=== PATIENT | male | born 1955 | race Caucasian/White ===

== ENCOUNTER 2021-03-02 17:11 | Emergency (ER) | payer MEDICARE, BC, SELFPAY ==
[2021-03-02 17:23] VITALS: BP 152/98; PULSE 68; RESP 20; TEMP 36.7; O2SAT 100
[2021-03-02] MEDS: PROPARACAINE 0.5% OPHTH SOL 1 DROPS EYE-LEFT (17:57)
[2021-03-02] MEDS: FLUORESCEIN 1 MG STRIP EYE-BOTH (17:59)
--- NOTE | 2021-03-02 18:12 | ED_ITS ---
HPI - General Adult General Chief complaint: Eye Problems Stated complaint: left eye possible FB Time Seen by Provider: 03/02/21 17:54 Source: patient Mode of arrival: Ambulatory History of Present Illness HPI narrative: Patient is a 65-year-old male here for evaluation of what he thinks is a potential foreign body in his left eye. He states he was mowing his lawn approximately 2 hours ago when he felt like a piece of grass came up around the safety goggles that he was wearing and irritated his left eye. He does not wear contact lenses. Many years ago he had surgery on the muscles of his eyes otherwise no other ocular procedures. Has irritation to his left eye. No drainage. Related Data Previous Rx's Medication Instructions Recorded PROMETHAZINE HCL/CODEINE 5 ml PO Q6HP PRN #60 ml 01/21/17 erythromycin 5 mg/gram (0.5 %) eye 0.5 inch EYE-LEFT TID #3.5 g 03/02/21 ointment Allergies Allergy/AdvReac Type Severity Reaction Status Date / Time No Known Drug Allergies Allergy Verified 03/02/21 17:59 Review of Systems Constitutional Constitutional: Reports system reviewed and no additional complaints, except as documented Eyes Eyes: Reports as per HPI ENT Ears, Nose, Mouth, and Throat: Reports system reviewed and no additional complaints, except as documented Respiratory Respiratory: Reports system reviewed and no additional complaints, except as documented Integumentary/Breasts Skin/Breast: Reports system reviewed and no additional complaints, except as documented Hematologic/Lymphatic On Anticoagulants: No Allergic/Immunologic Allergic/Immunologic: Reports system reviewed and no additional complaints, except as documented Patient History Medical History Viral URI Social History lives independently: Yes Exam Initial Vital Signs Initial Vital Signs: Vital Signs Temperature 98.0 F 03/02/21 17:23 Pulse Rate 68 03/02/21 17:23 Respiratory Rate 20 03/02/21 17:23 Blood Pressure 152/98 H 03/02/21 17:23 Pulse Oximetry 100 03/02/21 17:23 Const General: cooperative, healthy appearing and comfortable [facility] Head: normal to inspection and normocephalic Ears: hearing grossly normal bilaterally Nose: external nose normal Face and sinus: normal facial exam Mouth: oral mucosae normal Eyes Periorbital: periorbital findings normal Eyelids: eyelids normal Conjunctivae: conjunctival abnormality left conjunctival chemosis Sclera: sclerae normal Cornea: corneas normal and fluorescein used Pupils: PERRL EOM: EOM intact bilaterally Other: Right eye unremarkable. No foreign body noted in the left eye with eversion of the upper and lower eyelids. Resp Effort & Inspection: normal respiratory effort Skin General: no rashes or lesions noted Neuro General: patient alert, patient awake and patient oriented x3 Extrem General: normal to inspection and capillary refill normal Psych Appearance: grossly normal and well kempt Course Orders Ordered: Discontinued Medications Erythromycin (Erythromycin Ophth 1 Gm Oint) 1 applic EYE-LEFT NOW ONE Stop: 03/02/21 18:14 Last Admin: 03/02/21 18:27 Dose: 1 applic Documented by: GAIL Fluorescein Sodium (Fluorescein 1 Mg Strip) 1 mg EYE-BOTH NOW ONE Stop: 03/02/21 17:57 Last Admin: 03/02/21 17:59 Dose: 1 mg Documented by: GAIL Proparacaine HCl (Proparacaine 0.5% Ophth Kimberlee) 1 drops EYE-LEFT NOW ONE Stop: 03/02/21 17:26 Last Admin: 03/02/21 17:57 Dose: 1 drop Documented by: GAIL Vital Signs Vital signs: Vital Signs - 8 hr 03/02/21 17:23 Temperature 98.0 F Pulse Rate 68 Respiratory Rate 20 Blood Pressure 152/98 H Pulse Oximetry 100 Medical Decision Making MDM Narrative Medical decision making narrative: No foreign body noted in the left eye. Does have ecchymosis in his left eye. There was no uptake noted with floor seen. His eye exam is unremarkable. Plan will be is to place him on erythromycin ointment both the see the nature this and also to cover with antibiotics. We did discuss strict return precautions. He expressed understanding and agreement. Discharge Plan Departure Patient Disposition: Home Clinical Impression: Chemosis, Irritation of left eye Instructions: DI for Eye Pain Activity Restrictions/Additional Instructions: Recommend that he use the erythromycin ointment 3 times a day for at least the next 24 hours but you can continue using it in to your symptoms have resolved. Contact your primary provider for follow-up. Return to the emergency department for any new or worsening symptoms Prescriptions: New erythromycin 5 mg/gram (0.5 %) ointment 0.5 inch EYE-LEFT TID Qty: 3.5 RF: 0 No Action PROMETHAZINE HCL/CODEINE 5 ml PO Q6HP PRNQty: 60 RF: 0 Referrals: Jose Adams MD [Primary Care Provider] -
[2021-03-02] MEDS: ERYTHROMYCIN OPHTH 1 GM OINT 1 APPLIC EYE-LEFT (18:27)
[2021-03-02 18:31] VITALS: BP 148/87; PULSE 64; RESP 17; O2SAT 100
== END 2021-03-02 18:33 | disposition home or self-care (01) ==
PROVIDERS: Emergency Provider Emergency Medicine; Family Provider Family Medicine; PCP Family Medicine
DX: H11.422 Conjunctival edema, left eye (principal)
CPT/HCPCS: 99282

== ENCOUNTER 2021-08-10 16:20 | Emergency (ER) | payer MEDICARE, BC, SELFPAY ==
[2021-08-10] VITALS (8 sets, daily range): BP systolic 127–155; BP diastolic 77–99; PULSE 61–73; RESP 15–26; TEMP 36.4–36.8; O2SAT 95–98; BMI 32.5
--- NOTE | 2021-08-10 18:04 | DI.RAD.S_ITS ---
PROCEDURE: XR CHEST 1V INDICATIONS: chest pain TECHNIQUE: One view of the chest was acquired. COMPARISON: [facility], , CHEST 2 VIEW, 01/21/2017, 11:06. FINDINGS: Surgical changes and devices: None. Lungs and pleura: Lungs are clear. No pleural effusions or pneumothorax. Mediastinum: Mediastinal contours appear normal. Heart size is normal. Bones and chest wall: No suspicious bony lesions. Overlying soft tissues appear unremarkable. IMPRESSION: 1. No acute cardiopulmonary disease. Dictated by: Bijan Weber M.D. on 08/10/2021 at 20:13 Approved by: Bijan Weber M.D. on 08/10/2021 at 20:13
--- NOTE | 2021-08-10 18:23 | PC.NURSE ---
PT states dizziness resloved but feels a bit lightheaded. Neuro intact.
--- NOTE | 2021-08-10 18:24 | PC.NURSE ---
PIV x2 unsuccessful
--- NOTE | 2021-08-10 18:51 | DI.CT.S_ITS ---
PROCEDURE: CT HEAD/BRAIN WO CON INDICATIONS: dizzy TECHNIQUE: Noncontrast 4.5 mm thick angled axial sections acquired from the foramen magnum to the vertex, with coronal and sagittal reformats. For radiation dose reduction, the following was used: automated exposure control, adjustment of mA and/or kV according to patient size. COMPARISON: None. FINDINGS: Image quality: Excellent. CSF spaces: Basal cisterns are patent. No extra-axial fluid collections. The ventricles are symmetric in size and shape. There is mild cerebral volume loss, with resultant ventricular and sulcal prominence. Brain: No intracranial hemorrhage, mass, or mass effect. There are subcortical, periventricular and deep white matter hypodensities consistent with mild chronic small vessel ischemic changes. The delgado-white matter junction appears preserved. There is intracranial internal carotid artery atherosclerosis. There is a small oval filling defect within the confluence of sinuses posteriorly, measuring approximately 0.8 cm. Skull and face: Calvarium and visualized facial bones are intact, without suspicious lesions. Sinuses: Visualized sinuses demonstrate mild mucosal thickening within the ethmoid sinuses. The mastoid air cells are clear. IMPRESSION: 1. No acute intracranial hemorrhage or mass effect. 2. Small oval filling defect within the confluence of sinuses posteriorly. The findings likely represent an arachnoid granulation. A nonocclusive thrombus is less likely. Recommend correlation with clinical history. No occlusive thrombus visualized. Findings discussed with Dr. Burks on 08/10/2021 at 7:40 p.m.. Dictated by: Bijan Weber M.D. on 08/10/2021 at 19:28 Approved by: Bijan Weber M.D. on 08/10/2021 at 19:35
--- NOTE | 2021-08-10 18:52 | ED.DIZZY ---
HPI - Dizziness General Chief Complaint: Dizziness Stated Complaint: Dizzy/nausea today Time Seen by Provider: 08/10/21 18:06 Source: patient Mode of arrival: Ambulatory History of Present Illness HPI Narrative: Patient is a 66 year old male history of diabetes presenting today with sudden onset of dizziness. He states he was up on a ladder trimming trees which is a common thing for him he fortunately got down he felt very dizzy. So dizzy he had to sit down it lasted for about 10-30 minutes and has since completely resolved. He denies any numbness tingling or weakness. He had no chest pain or palpitations. No headache no nausea or vomiting. He is worried because he had a girlfriend few years ago who felt dizzy came to this hospital and then later of a cardiac arrest. He overall is feeling significantly better but was worried. He has not had any anticoagulation medication he had no trauma to his head. He has been symptom-free for number of hours now. Related Data Previous Rx's Medication Instructions Recorded PROMETHAZINE HCL/CODEINE 5 ml PO Q6HP PRN #60 ml 01/21/17 erythromycin 5 mg/gram (0.5 %) eye 0.5 inch EYE-LEFT TID #3.5 g 03/02/21 ointment Allergies Allergy/AdvReac Type Severity Reaction Status Date / Time No Known Drug Allergies Allergy Verified 03/02/21 17:59 Review of Systems Review of Systems Narrative: GENERAL: Denies chills, fatigue, malaise, fever, sweats, travel HEENT: Denies sinus pain, ear pain, sore throat, difficulty swallowing, neck pain RESPIRATORY: Denies dyspnea, cough, wheezing, hemoptysis, sputum. CARDIOVASCULAR: Denies chest pain, palpitations, orthopnea, edema GASTROINTESTINAL: Denies nausea, vomiting, abdominal pain, diarrhea, constipation, melena. : Denies dysuria, frequency, incontinence, hematuria, urinary retention, flank pain. MUSCULOSKELETAL: Denies weakness, joint pain, or bony pain SKIN: No rash, no erythema, no pruritus NEUROLOGIC: HPI PSYCHIATRIC: No concerning psychosocial issues. 12 point review of systems is negative except for those stated above and HPI Patient History Medical History Viral URI Social History lives independently: Yes Smoking Status: Never smoker Smoking Status: Never smoker Substance Use Type: does not use Exam Initial Vital Signs Initial Vital Signs: Vital Signs Temperature 97.6 F 08/10/21 16:31 Pulse Rate 63 08/10/21 16:31 Respiratory Rate 18 08/10/21 16:31 Blood Pressure 144/77 H 08/10/21 16:31 Pulse Oximetry 97 08/10/21 16:31 GENERAL: Well-appearing 66-year-old male HEENT: Head atraumatic,EOMI, pupils reactive, face symmetric, moist mucous membranes CARDIOVASCULAR: Regular rate and rhythm without murmurs, rubs or gallops. RESPIRATORY: Breath sounds equal bilaterally, no wheezes rales or rhonchi. ABDOMEN: Soft, nontender. Normoactive bowel sounds all 4 quadrants. No guarding or rebound. EXTREMITIES: Normal range of motion, no clubbing or edema. Neurovascularly intact NEUROLOGICAL: Alert and oriented x4.Normal gait and speech. Cranial nerves II through XII grossly intact. Good [id number], good [id number], strength equal bilaterally, no dysarthria or aphasia, sensation in tact to soft touch bilaterally, no visual changes, no facial droop SKIN: Warm, dry, no laceration, no petechiae, no rashes or lesions. Scores NIH Stroke Scale Level of Conciousness: Alert, keenly responsive Ask month/age: Answers both questions correctly. Open/close eyes, close hand: Performs both tasks correctly Best gaze horizontal: Normal Visual gooden: No visual loss Facial palsy: Normal symetrical movement Left arm drift: No drift for full 10 sec Right arm drift: No drift for full 10 sec Left leg drift: No drift for full 5 sec Right leg drift: No drift for full 5 sec Limb ataxia: Absent Sensory on face/arms/legs: Normal, no sensory loss Best language: No aphasia, normal Dysarthria: Normal Extinction or inattention: No abnormality Total NIH Stroke scale score: 0 Course Orders Ordered: ED Orders 08/10/21 18:04 XR chest 1V Stat 08/10/21 18:10 EKG-12 Lead Stat 08/10/21 18:40 Complete Blood Count AUTO DIFF Stat Comprehensive Metabolic Panel Stat Lipase Stat Magnesium Stat Troponin & CK Cardiac Panel Stat 08/10/21 18:51 CT head/brain wo con Stat 08/10/21 20:01 EKG-12 Lead Stat Vital Signs Vital signs: Vital Signs - 8 hr 08/10/21 18:55 08/10/21 18:59 08/10/21 19:00 Temperature Pulse Rate 63 61 Pulse Rate [Orthostatic Lying] 63 Pulse Rate [Orthostatic Standing] 73 Respiratory Rate 20 20 Blood Pressure 155/92 H Blood Pressure [Orthostatic Lying] 155/99 H Blood Pressure [Orthostatic Standing] 155/92 H Pulse Oximetry 97 97 08/10/21 19:14 08/10/21 19:30 08/10/21 20:00 Temperature 98.2 F Pulse Rate 62 62 61 Pulse Rate [Orthostatic Lying] Pulse Rate [Orthostatic Standing] Respiratory Rate 20 22 15 Blood Pressure 132/84 Blood Pressure [Orthostatic Lying] Blood Pressure [Orthostatic Standing] Pulse Oximetry 96 96 95 08/10/21 20:04 Temperature Pulse Rate 61 Pulse Rate [Orthostatic Lying] Pulse Rate [Orthostatic Standing] Respiratory Rate 26 H Blood Pressure 127/79 Blood Pressure [Orthostatic Lying] Blood Pressure [Orthostatic Standing] Pulse Oximetry 96 MDM - Dizziness Lab Data Result diagrams: 08/10/21 18:40 08/10/21 18:40 Labs: Lab Results 08/10/21 08/10/21 Range/Units 18:40 18:40 WBC 9.9 (4.5-11.0) X10^3/uL RBC 6.00 H (4.5-5.9) X10^6/uL Hgb 17.1 (13.5-17.5) g/dL Hct 49.7 (41-53) % MCV 82.8 (80-100) fL MCH 28.5 (26-34) PG MCHC 34.4 (30-36) % RDW 13.9 (11.6-14.8) % Plt Count 225 (150-400) X10^3/uL Neut % (Auto) 70.1 (50-75) % Lymph % (Auto) 21.2 L (25-40) % [place] % (Auto) 6.7 (3-14) % Eos % (Auto) 1.1 L (2-4) % Baso % (Auto) 0.9 (0-2) % Neut # (Auto) 6900 (2162-4830) /uL Lymph # (Auto) 2100 (9484-4146) /uL [place] # (Auto) 700 (0-900) /uL Eos # (Auto) 100 (0-450) /uL Baso # (Auto) 100 (0-100) /uL Sodium 138 (137-145) mmol/L Potassium 4.6 (3.4-5.1) mmol/L Chloride 102 (98-107) mmol/L Carbon Dioxide 27 (22-32) mmol/L BUN 21 H (9-20) mg/dL Creatinine 1.01 (0.66-1.25) mg/dL Estimated GFR > 60.0 (>60) mL/min BUN/Creatinine Ratio 20.8 (6-22) Glucose 203 H (80-110) mg/dL Calcium 9.8 (8.4-10.2) mg/dL Magnesium 2.2 (1.6-2.3) mg/dL Total Bilirubin 0.7 (0.2-1.3) mg/dL AST 29 (17-59) IU/L ALT 30 (<50) IU/L Alkaline Phosphatase 54 (38-126) U/L Total Creatine Kinase 76 (55-170) U/L CK-MB (CK-2) TNP CK-MB (CK-2) Rel Index TNP Troponin I < 0.012 (0.01-0.034) ng/mL Total Protein 7.7 (6.3-8.2) g/dL Albumin 4.8 (3.5-5.0) g/dL Globulin 2.9 (1.7-4.1) g/dL Albumin/Globulin Ratio 1.7 (1.0-2.8) Lipase 58 (23-300) U/L Imaging Data Chest x-ray: Radiologist's Impression: PROCEDURE:? XR CHEST 1V ? INDICATIONS:? chest pain ? TECHNIQUE:? One view of the chest was acquired.? ? COMPARISON:? [facility], , CHEST 2 VIEW, 01/21/2017, 11:06. ? FINDINGS:? ? Surgical changes and devices:? None.? ? Lungs and pleura:? Lungs are clear.? No pleural effusions or pneumothorax.? ? Mediastinum:? Mediastinal contours appear normal.? Heart size is normal.? ? Bones and chest wall:? No suspicious bony lesions.? Overlying soft tissues appear unremarkable.? ? IMPRESSION:? ? 1.? No acute cardiopulmonary disease. ? ? ? Dictated by: Bijan Weber M.D. on 08/10/2021 at 20:13 ? ? CT scan - head: Radiologist's Impression: PROCEDURE:? CT HEAD/BRAIN WO CON ? INDICATIONS:? dizzy ? TECHNIQUE:? Noncontrast 4.5 mm thick angled axial sections acquired from the foramen magnum to the vertex, with coronal and sagittal reformats.? For radiation dose reduction, the following was used:? automated exposure control, adjustment of mA and/or kV according to patient size.? ? COMPARISON:? None. ? FINDINGS:? Image quality:? Excellent.? ? CSF spaces:? Basal cisterns are patent.? No extra-axial fluid collections.? The ventricles are symmetric in size and shape.? There is mild cerebral volume loss, with resultant ventricular and sulcal prominence.? ? Brain:? No intracranial hemorrhage, mass, or mass effect.? There are subcortical, periventricular and deep white matter hypodensities consistent with mild chronic small vessel ischemic changes.? The delgado-white matter junction appears preserved.? There is intracranial internal carotid artery atherosclerosis.? There is a small oval filling defect within the confluence of sinuses posteriorly, measuring approximately 0.8 cm. ? Skull and face:? Calvarium and visualized facial bones are intact, without suspicious lesions.? ? Sinuses:? Visualized sinuses demonstrate mild mucosal thickening within the ethmoid sinuses.? The mastoid air cells are clear. ? IMPRESSION:? ? 1. No acute intracranial hemorrhage or mass effect. ? 2. Small oval filling defect within the confluence of sinuses posteriorly.? The findings likely represent an arachnoid granulation.? A nonocclusive thrombus is less likely.? Recommend correlation with clinical history.? No occlusive thrombus visualized.? ? Findings discussed with Dr. Burks on 08/10/2021 at 7:40 p.m..? ? Dictated by: Bijan Weber M.D. on 08/10/2021 at 19:28? ECG Data Interpretation: Sinus rhythm rate 61 SD interval 180 QRS 78 QTC 402 possible artifact noted in lead V2 with ST elevation no ST depression with a Q-wave noted in lead 3 only to previous EKG in 2009 EKG 2. Sinus rhythm rate [address] changes no ST depression no T-wave inversion overall appears to have no ischemic MDM Narrative Medical decision making narrative: Patient had a brief episode of severe dizziness which has completely resolved and been resolved for number of hours. Blood work is overall reassuring. Head CT noncontrast did show possible is sinus narrowing thought more to be granular tissue rather than thrombus it is not completely occlusive discussed this with radiologist. Patient's symptoms have completely resolved I did discuss the findings of his CT with him and recommended outpatient follow-up certainly if his symptoms continue or worsen he should return to the emergency department. MRI is currently unavailable and CT angio would not be the correct test. Patient's clinical exam is overall reassuring. I strongly recommend that he stay away from ladders as well. Discharge Plan Departure Patient Disposition: Home Clinical Impression: Benign paroxysmal positional vertigo Instructions: DI for Dizziness-Nonvertigo Activity Restrictions/Additional Instructions: *You have been diagnosed with vertigo *What to do: CT of your head does show possible narrowing and tissue in 1 of her vessels. However your symptoms resolved, but this may need an outpatient workup with an MRI venogram, please see your primary care provider about this. If your symptoms are worsening please return to emergency department immediately *Continue to take medications as directed *Follow up with your primary care provider in 2-3 days *Return to ER if you should have increasing dizziness, weakness, numbness, tingling, chest pain or palpitations or any new, worsening or concerning symptoms Prescriptions: No Action PROMETHAZINE HCL/CODEINE 5 ml PO Q6HP PRNQty: 60 0RF erythromycin 5 mg/gram (0.5 %) ointment 0.5 inch EYE-LEFT TID Qty: 3.5 0RF Referrals: Jose Adams MD [Primary Care Provider] -
[2021-08-10 19:01] LABS: Add Manual Diff / Slide Review NO; Basophils Absolute Auto 100 /uL (0-100); Basophils Percent Auto 0.9 % (0-2); Eosinophils Absolute Auto 100 /uL (0-450); Eosinophils Percent Auto 1.1 % (2-4); Hematocrit 49.7 % (41-53); Hemoglobin 17.1 g/dL (13.5-17.5); Lymphocytes Absolute Auto 2100 /uL (1100-4500); Lymphocytes Percent Auto 21.2 % (25-40); Mean Corpuscular HGB Conc 34.4 % (30-36); Mean Corpuscular Hemoglobin 28.5 PG (26-34); Mean Corpuscular Volume 82.8 fL (80-100); Monocytes Absolute Auto 700 /uL (0-900); Monocytes Percent Auto 6.7 % (3-14); Neutrophils Absolute Auto 6900 /uL (1500-7000); Neutrophils Percent Auto 70.1 % (50-75); Platelet Count 225 X10^3/uL (150-400); Red Cell Distribution Width 13.9 % (11.6-14.8); White Blood Cell Count 9.9 X10^3/uL (4.5-11.0)
[2021-08-10 19:03] LABS: Alanine Aminotransferase 30 IU/L (<50); Albumin 4.8 g/dL (3.5-5.0); Albumin Globulin Ratio 1.7 (1.0-2.8); Alkaline Phosphatase 54 U/L (38-126); Aspartate Aminotransferase 29 IU/L (17-59); BUN Creatinine Ratio 20.8 (6-22); Bilirubin Total 0.7 mg/dL (0.2-1.3); Blood Urea Nitrogen 21 mg/dL (9-20); Calcium 9.8 mg/dL (8.4-10.2); Carbon Dioxide 27 mmol/L (22-32); Chloride 102 mmol/L (98-107); Creatine Kinase 76 U/L (55-170); Estimated Glomerular Filt Rate > 60.0 mL/min (>60); Globulin 2.9 g/dL (1.7-4.1); Glucose 203 mg/dL (80-110); HEMOLYSIS 20 (0-50); Lipase 58 U/L (23-300); Magnesium 2.2 mg/dL (1.6-2.3); Potassium 4.6 mmol/L (3.4-5.1); Sodium 138 mmol/L (137-145); Total Protein 7.7 g/dL (6.3-8.2)
[2021-08-10 19:14] LABS: Troponin I < 0.012 ng/mL (0.01-0.034)
== END 2021-08-10 20:36 | disposition home or self-care (01) ==
PROVIDERS: Emergency Provider Emergency Medicine; Family Provider Family Medicine; PCP Family Medicine
DX: H81.10 Benign paroxysmal vertigo, unspecified ear (principal); R03.0 Elevated blood-pressure reading, without diagnosis of hypertension
CPT/HCPCS: 36415; 70450; 71045; 80053; 82550; 83690; 83735; 84484; 85025; 93005; 93010; 99284

== ENCOUNTER → 2021-11-28 09:00 | Outpatient (CLI) | payer MEDICARE, BC, SELFPAY ==
--- NOTE | 2021-11-28 09:04 | DI.US.S_ITS ---
PROCEDURE: US CAROTID DOPPLER BI INDICATIONS: Cervicalgia TECHNIQUE: Color and pulse Doppler interrogation was performed of both carotid systems, with image documentation and velocity measurements. COMPARISON: None. FINDINGS: Stenosis calculations are based on SRU (Society of Radiologists in Ultrasound) criteria. Right side: Brachial blood pressure: 136/82 mm Hg. Common carotid artery peak systolic velocity: 94 cm/sec. Internal carotid artery peak systolic velocity: 58 cm/sec. Internal carotid artery end diastolic velocity: 19 cm/sec. External carotid artery peak systolic velocity: 94 cm/sec. ICA/CCA peak systolic ratio: 0.6 . Sierra scale imaging description: Calcified plaque Percent internal carotid artery stenosis: Less than 50% . Vertebral artery: Flow direction is antegrade. Left side: Brachial blood pressure: 127/80 mm Hg. Common carotid artery peak systolic velocity: 54 cm/sec. Internal carotid artery peak systolic velocity: 61 cm/sec. Internal carotid artery end diastolic velocity: 26 cm/sec. External carotid artery peak systolic velocity: 86 cm/sec. ICA/CCA peak systolic ratio: 1.1 . Sierra scale imaging description: Calcified plaque Percent internal carotid artery stenosis: Less than 50% . Vertebral artery: Flow direction is antegrade. IMPRESSION: Less than 50% stenosis of the right and left internal carotid arteries. Dictated by: Yesy Moreno MD, PhD on 11/28/2021 at 10:26 Approved by: Yesy Moreno MD, PhD on 11/28/2021 at 10:27
== END ==
PROVIDERS: Family Provider Family Medicine; PCP Family Medicine; Referring Provider Family Medicine; Visit Provider Family Medicine
DX: M54.2 Cervicalgia (principal); I65.23 Occlusion and stenosis of bilateral carotid arteries
CPT/HCPCS: 93880

== ENCOUNTER → 2021-12-09 11:51 | Outpatient (CLI) | payer MEDICARE, BC, SELFPAY | PROVIDERS: Family Provider Family Medicine; PCP Family Medicine; Referring Provider Family Medicine; Visit Provider Family Medicine | DX: M54.2 Cervicalgia (principal); Z53.20 Procedure and treatment not carried out because of patient's decision for unspecified reasons ==

== ENCOUNTER → 2022-07-13 14:34 | Outpatient (CLI) | payer MEDICARE, BC, SELFPAY ==
[2022-07-13 15:29] LABS: Add Manual Diff / Slide Review NO; Basophils Absolute Auto 100 /uL (0-100); Basophils Percent Auto 0.9 % (0-2); Eosinophils Absolute Auto 200 /uL (0-450); Eosinophils Percent Auto 2.8 % (2-4); Hematocrit 45.2 % (41-53); Hemoglobin 15.3 g/dL (13.5-17.5); Lymphocytes Absolute Auto 1600 /uL (1100-4500); Lymphocytes Percent Auto 28.8 % (25-40); Mean Corpuscular HGB Conc 33.8 % (30-36); Mean Corpuscular Hemoglobin 28.5 PG (26-34); Mean Corpuscular Volume 84.2 fL (80-100); Monocytes Absolute Auto 400 /uL (0-900); Monocytes Percent Auto 6.7 % (3-14); Neutrophils Absolute Auto 3400 /uL (1500-7000); Neutrophils Percent Auto 60.8 % (50-75); Platelet Count 192 X10^3/uL (150-400); Red Blood Cell Count 5.36 X10^6/uL (4.5-5.9); Red Cell Distribution Width 13.7 % (11.6-14.8); White Blood Cell Count 5.6 X10^3/uL (4.5-11.0)
[2022-07-13 15:41] LABS: BUN Creatinine Ratio 25.7 (6-22); Blood Urea Nitrogen 19 mg/dL (9-20); Calcium 9.4 mg/dL (8.4-10.2); Carbon Dioxide 28 mmol/L (22-32); Chloride 97 mmol/L (98-107); Estimated Glomerular Filt Rate > 60 mL/min (>60); Glucose 386 mg/dL (80-110); HEMOLYSIS 16 (0-50); Potassium 4.3 mmol/L (3.4-5.1); Sodium 135 mmol/L (137-145)
[2022-07-14 06:59] LABS: Hemoglobin A1C% w Est Avg Glu 11.6 % (4.0-6.0)
== END ==
PROVIDERS: Family Provider Family Medicine; PCP Family Medicine; Referring Provider Orthopaedic Surgery; Visit Provider Orthopaedic Surgery
DX: Z01.818 Encounter for other preprocedural examination (principal); R73.9 Hyperglycemia, unspecified; Z01.812 Encounter for preprocedural laboratory examination; M25.562 Pain in left knee
CPT/HCPCS: 36415; 80048; 83036; 85025; 93005

== ENCOUNTER → 2022-07-24 12:05 | Outpatient (CLI) | payer MEDICARE, BC, SELFPAY ==
[2022-07-24 13:23] LABS: COVID19 -Nasal RAPID Negative (Negative)
== END ==
PROVIDERS: Family Provider Family Medicine; PCP Family Medicine; Referring Provider Orthopaedic Surgery; Visit Provider Orthopaedic Surgery
DX: Z20.822 Contact with and (suspected) exposure to COVID-19 (principal)
CPT/HCPCS: 87635; C9803

== ENCOUNTER 2022-07-26 10:01 | Inpatient (IN) | payer MEDICARE, BC, SELFPAY ==
[2022-07-13 10:59] VITALS: BMI 31.7
[2022-07-26] VITALS (13 sets, daily range): BP systolic 130–160; BP diastolic 51–98; PULSE 60–76; RESP 9–20; TEMP 36.1–36.8; O2SAT 92–100; BMI 31.0
--- NOTE | 2022-07-26 06:00 | DI.RAD.S_ITS ---
PROCEDURE: XR KNEE LT 1TO2V INDICATIONS: prosthesis placement TECHNIQUE: 2 view(s) of the knee acquired. COMPARISON: None. FINDINGS: Bones: Patient is status post knee joint arthroplasty. Hardware components are in expected positions. Visualized bony structures are intact. Soft tissues: Overlying postoperative changes are noted. IMPRESSION: Expected appearance post left knee arthroplasty. Dictated by: Katy Sandy M.D. on 07/26/2022 at 19:17 Approved by: Katy Sandy M.D. on 07/26/2022 at 19:17
[2022-07-26] MEDS: ACETAMINOPHEN 325 MG TABLET 975 MG PO (11:35)
[2022-07-26] MEDS: CELECOXIB 200 MG CAPSULE PO (11:36)
[2022-07-26] MEDS: PREGABALIN 75 MG CAPSULE PO (11:37)
[2022-07-26] MEDS: LACTATED RINGERS 1,000 ML 42 ML IV (11:38)
--- NOTE | 2022-07-26 12:59 | PM.PREOP ---
Pre-operative Note COVID-19 COVID-19 status: Negative Result date/Date tested (Pos, Neg/Pending): 07/24/22 Interval Note History & Physical reviewed/Exam performed by Physician: Yes Changes to H&P: No
[2022-07-26] MEDS: CEFAZOLIN 2 GM/100 ML PREMIX 100 ML IV ×2 (14:30→22:30)
[2022-07-26] MEDS: TRANEXAMIC ACID 1,000 MG VIAL 1000 MG INJ (14:40)
--- NOTE | 2022-07-26 14:49 | SUR.OPER ---
Supine on padded OR bed. Pillow under head, arms secured on padded armboards <90 degree abduction. Safety belt across torso. Non-operative leg secured with tape over blanket over lower leg. Operative leg secured in [employer] positioner. Foam padded brace at thigh of operative leg.
[2022-07-26] MEDS: BUPIVACAINE LIPOSOME 266 MG/20 ML VIAL INJ (15:00)
[2022-07-26] MEDS: BUPIVACAINE 0.5% (PF) VIAL 30 ML INJ (15:04)
[2022-07-26] MEDS: EPINEPHrine 1 MG/ML 0.15 MG INJ (15:09)
[2022-07-26] MEDS: MORPHINE 4 MG/ML INJ INJ (15:10)
--- NOTE | 2022-07-26 16:20 | PM.DS.1 ---
History of Present Illness History of Present Illness Date Patient Seen: 07/26/22 Time Patient Seen: 16:20 Chief complaint: L TKA Revision Narrative: Painful left knee unicompartmental arthroplasty Discharge Providers Provider Date of admission: 07/26/22 10:01 Primary care physician: Jose Adams MD Consults: 07/13/22 13:28 Consult to Pump Attendant Routine Comment: Lives alone, no plan for home assistance 07/26/22 06:00 Consult to Anesthesiology Routine Comment: Consulting Provider: Anesthesiologist Reason for consultation: Regional block for post operative pain control Discharge provider: Олег Chavez MD Exam Vital Signs (past 8 hours): - 07/26/22 11:01 Temperature 97.3 F L Pulse Rate 65 Respiratory Rate 16 Blood Pressure 160/98 H Pulse Oximetry 100 Oxygen Delivery Method Room Air Oxygen Delivery Method Room Air PFS Medical History Diabetes History of prosthetic unicompartmental arthroplasty of left knee (2018) HTN (hypertension) Hypothyroidism JONELLE (obstructive sleep apnea) Osteoarthritis Viral URI Surgical History H/O vasectomy Hx of arthroscopy of left knee Hx of arthroscopy of right knee Hx of colonoscopy with polypectomy Hx of hand surgery Hx of hernia repair Hx of tonsillectomy Social History household members: none lives independently: Yes Smoking Status: Former smoker alcohol intake: former Discharge Plan Discharge orders & Medications Prescriptions: No Action metformin 500 mg Tablet 2,000 mg PO QAM amlodipine 5 mg Tablet 5 mg PO DAILY oxycodone-acetaminophen 5-325 mg Tablet 1 tab PO Q4-6H PRN (Reason: Pain) levothyroxine 200 mcg Tablet 200 mcg PO DAILY Jardiance 25 mg Tablet 25 mg PO DAILY hydrochlorothiazide 50 mg Tablet 50 mg PO DAILY Follow up/Referrals: Jose Adams MD [Primary Care Provider] - Discharge Data Primary Care Provider: Jose Adams
--- NOTE | 2022-07-26 16:20 | PM.OP.1 ---
Operative Date/Time/Diagnoses Date of procedure: 07/26/22 Time of procedure: 16:21 Pre-op diagnosis: Painful unicompartmental arthroplasty, left knee Post-op diagnosis: same Procedure & Clinicians Procedure: Revision of all components of left knee unicompartmental arthroplasty to total knee arthroplasty Same procedure as scheduled: Yes Indications: The patient is a 67-year-old gentleman who had a left medial compartment unicompartmental arthroplasty done a number of years ago. He has developed ongoing worsening pain in the left knee and has requested revision after discussion the risks benefits and alternatives. Risks discussed included but were not limited to: Failure to improve, stiffness, infection, nerve damage, deep venous thrombosis, pulmonary embolism, stroke, myocardial infarction, permanent paralysis and . Surgeon: Олег Chavez Wheelabrator Operator: Goldie Turcios Click Yes if Unassisted: No Anesthesia Type: General, Spinal and Local Operative Notes Findings: Well-fixed medial compartment unicompartmental arthroplasty with significant patellofemoral degenerative change. Closure Type: primary Specimen(s): none sent Prosthetic devices, grafts, tissues, transplants, or devices: Implants used in this procedure were manufactured by the [employer] and [employer] and included the BCS II Journey total knee replacement with a size 6 Oxinium left femoral component, a size 6 left non porous tibial base plate, an 11 mm cross-linked polyethylene tibial insert and a 32 mm oval Missy II patella. The previously placed him femoral and tibial components of the unicompartmental arthroplasty were removed. Applied: implant(s) Estimated Blood Loss (mL): 25 Blood products transfused: none Tourniquet time (min): 73 Procedure in detail: The patient was seen in the pre-operative area, where the left knee was identified as the operative site and this was marked with my initials. The patient received pre-operative antibiotics, and was taken to the operating room and placed on the operative table in the supine position. After satisfactory anesthesia, a timekeeper supervisor out was performed. The left leg was encircled with a tourniquet about the proximal thigh, and the leg was prepared from the toes to the tourniquet with ChloroPrep in the usual fashion and draped through sterile drapes. The leg was elevated and exsanguinated with Eschmark bandage and the tourniquet inflated to 250 mmHg pressure. The knee was approached through an approximately 18 cm incision incorporating the previous incision scar and carried into the knee through a medial parapatellar arthrotomy. The anterior osteophytes and soft tissues were removed. The rotational landmarks of Bertha's line and the transepicondylar axis were marked on the femur with electrocautery, and intramedullary guide holes for the femur and tibia were created. The distal femoral cut was made in 6 degrees of valgus using the intramedullary guide at the primary cut setting. The cut was started and then the femoral prosthetic of the unicompartmental arthroplasty was loosened using the revision osteotomes and removed with minimal bone loss. The proximal tibial cut was then made using the intramedullary guide, taking 11 mm of bone off the less involved lateral side. This allowed us to undercut the femoral component, but the saw hit the lugs on the component and it was removed using osteotomes as well and the cut completed. The femoral rotation was carefully set using the sizing guide with attention paid to Vicco's line especially. The anterior, posterior and chamfer cuts were then made. The posterior osteophytes and soft tissues were then removed. The posterior capsule was injected with part of a mixture of 50 ml 0.25% Marcaine mixed with 20 ml Exparel and 4 mg of morphine for post-operative pain control. The remainder of this mixture was injected into the capsule and subcutaneous tissues during cement curing. The tibia was prepared with the rotation set by an extra medullary guide. Trial tibial and femoral components were then placed and the intercondylar notch cut through the femoral trial. Range of motion was 0-145 degrees, with good stability throughout the range. The patella was then cut to accommodate the patellar prosthetic. There was no need for a lateral release. The trials were then removed, and the femoral hole plugged with a bone plug. The bone was prepared with pulsatile lavage, and dried with a sponge. Cement was applied and the final prosthetics placed. Excess cement was removed during and after cement curing. After confirming there was no extruded cement posteriorly, the final tibial insert was placed. The knee was copiously irrigated and the tourniquet deflated. Hemostasis was obtained. The capsule was closed with interrupted # 2 polyester sutures. The subcutaneous layer was closed with 3-0 Vicryl, and the skin with a running 3-0 V-Lock suture and Dermabond. An Aquacel Ag dressing was applied and the patient was taken to recovery having tolerated the procedure well. The services of Chana Turcios were necessary as a skilled pastry assistant to provide positioning, exposure and retraction to protect vital structures. The procedure could not be performed expediently or safely without her assistance. Complications: none Post-operative Condition: stable Disposition: PACU Plan for aftercare: The patient will be maintained on a standard total knee replacement protocol with weight bearing as tolerated. The patient will receive aspirin and sequential compression devices for DVT prophylaxis. The patient will be discharged home when safe for the home environment.
[2022-07-26] MEDS: OXYCODONE IR 5 MG TABLET PO (16:55)
[2022-07-26] MEDS: HYDROMORPHONE 2 MG INJ IV (16:56)
[2022-07-26] MEDS: LACTATED RINGERS 1,000 ML 100 ML IV (18:35)
[2022-07-26] MEDS: IBUPROFEN 400 MG TABLET PO ×2 (18:35→20:53)
[2022-07-26] MEDS: ACETAMINOPHEN 325 MG TABLET 650 MG PO (18:35)
--- NOTE | 2022-07-26 18:49 | PC.NURSE ---
Pt to room 217 via bed at 1730. Pt is awake, alert, and oriented x 3. Pt oriented to room, call light, bed controls, and tv controls. SCD's on and running. IVF infusing as ordered. Bed alarm on for safety. Pt denies pain at this time. Pt agrees to call for assistance as needed.
[2022-07-26] MEDS: DOCUSATE 100 MG CAPSULE PO (20:53)
[2022-07-26] MEDS: ASPIRIN EC 81 MG TABLET PO (20:53)
[2022-07-27] MEDS: IBUPROFEN 400 MG TABLET PO ×4 (00:29→12:31)
[2022-07-27] MEDS: ACETAMINOPHEN 325 MG TABLET 650 MG PO ×3 (00:29→12:30)
[2022-07-27 00:30] VITALS: BP 146/77; PULSE 61; RESP 20; TEMP 36.6; O2SAT 95
[2022-07-27] MEDS: OXYCODONE IR 10 MG TABLET PO ×4 (00:31→13:15)
--- NOTE | 2022-07-27 00:51 | PC.NURSE ---
Patient is alert and oriented. Breath sounds CTA with RA sat of 93%. HRR with BP of 147/70. Denies nausea. BT present but has not yet passed flatus. Up to bathroom with SBA and was able to void without dysuria. Ambulated in bartlett; declined use of walker. Aquacel dressing to left knee CDI and covered with jose wrap. Wearing bilateral SCD's. CMS is intact except for decreased ROM and some weakness in left leg. States pain is currently 4/10 at rest but 8/10 with any movement so medicated with oxycodone (along with scheduled Tylenol + Ibuprofen) and ice applied. Fall risk score is moderate and bed alarm is activated.
[2022-07-27] MEDS: LACTATED RINGERS 1,000 ML 100 ML IV (04:28)
[2022-07-27 05:17] LABS: Hematocrit 39.7 % (41-53); Hemoglobin 13.3 g/dL (13.5-17.5)
[2022-07-27] MEDS: LEVOTHYROXINE 100 MCG TABLET 200 MCG PO (06:13)
[2022-07-27] MEDS: CEFAZOLIN 2 GM/100 ML PREMIX 100 ML IV (06:46)
[2022-07-27 06:53] VITALS: BP 130/73; PULSE 60; RESP 18; TEMP 36.1; O2SAT 95
--- NOTE | 2022-07-27 07:39 | P.DS_ITS ---
History of Present Illness History of Present Illness Date Patient Seen: 07/27/22 Time Patient Seen: 07:39 Chief complaint: L TKA Revision Narrative: The history and physical is contained in the chart and previously completed note. Please refer to that note for this information. Discharge Providers Provider Date of admission: 07/26/22 10:01 Discharge Date: 07/27/22 Primary care physician: Jsoe Adams MD Consults: 07/13/22 13:28 Consult to Investigator Utility Bill Complaints Routine Comment: Lives alone, no plan for home assistance 07/26/22 17:23 Consult to Discharge Planning Routine Comment: Consult to Physical Therapy Evaluate & Treat Comment: Physician Instructions: postop TKA protocol Discharge provider: Олег Chavez MD Summary Hospital Course Discharge Diagnosis: 1. Painful left unicompartmental knee replacement requiring revision 2. Mild post hemorrhagic anemia 3. Type 2 diabetes mellitus Hospital Course: The patient was admitted to the hospital and taken directly to the operating room on July 26, 2022. He underwent a revision of a medial compartment unicompartmental arthroplasty to a total knee replacement without difficulty. He was stable overnight. On postoperative day 1 his pain was well controlled. He had been able to walk outside his room. Is felt to be ready for discharge. He has a mild post hemorrhagic anemia which should resolve spontaneously. Status at Discharge Cognitive/behavioral status at discharge: at baseline, oriented Functional status at discharge: uses cane/walker Overall status at discharge: patient is progressing back to baseline Time Spent with Patient Time spent: Less than 30 minutes Exam Vital Signs (past 8 hours): - 07/27/22 00:30 07/27/22 06:53 Temperature 97.9 F 97.0 F L Pulse Rate 61 60 Respiratory Rate 20 18 Blood Pressure 146/77 H 130/73 Pulse Oximetry 95 95 Oxygen Flow Rate 0 0 Oxygen Delivery Method Room Air Oxygen Flow Rate 0 Narrative Exam Narrative: Left knee wound is dressed with no drainage on the bandage. Calf is soft. Light touch and motion are intact in the left lower extremity. Objective Labs Result Diagrams: 07/27/22 04:57 Labs: Laboratory Results - last 24 hr 07/27/22 04:57 Hgb 13.3 L Hct 39.7 L PFSH Medical History Diabetes History of prosthetic unicompartmental arthroplasty of left knee (2018) HTN (hypertension) Hypothyroidism JONELLE (obstructive sleep apnea) Osteoarthritis Viral URI Surgical History H/O vasectomy Hx of arthroscopy of left knee Hx of arthroscopy of right knee Hx of colonoscopy with polypectomy Hx of hand surgery Hx of hernia repair Hx of tonsillectomy Social History household members: none lives independently: Yes Smoking Status: Former smoker alcohol intake: former Discharge Assessment & Plan Assessment and Plan Assessment: Stable postoperative day 1 status post revision of a unicompartmental arthroplasty of the left knee to total knee replacement. He has a mild post hemorrhagic anemia that should resolve spontaneously with appropriate diet. His diabetes has been stable during his admission. Plan of Treatment: Discharge to home today. Follow up in my office in 10-14 days. Discharge prescriptions have been sent to the pharmacy for oxycodone and Vistaril for pain and spasms. He has been instructed in the use of Tylenol and ibuprofen for additional pain relief and the use of low-dose aspirin for DVT prophylaxis. Discharge Plan Discharge Plan Patient Disposition: Home Discharge orders & Medications Prescriptions: New acetaminophen 325 mg Tablet 650 mg PO Q6HR Qty: 250 0RF aspirin 81 mg Tablet,Delayed Release (Dr/Ec) 81 mg PO BID Qty: 84 0RF hydroxyzine pamoate 25 mg Capsule 25 mg PO Q6H Qty: 30 0RF ibuprofen 400 mg Tablet 400 mg PO Q4HR Qty: 250 0RF oxycodone 5 mg Tablet 5 mg PO Q4H PRN (Reason: Pain, Moderate (4-6)) Qty: 40 0RF Continued metformin 500 mg Tablet 2,000 mg PO QAM amlodipine 5 mg Tablet 5 mg PO DAILY levothyroxine 200 mcg Tablet 200 mcg PO DAILY Jardiance 25 mg Tablet 25 mg PO DAILY hydrochlorothiazide 50 mg Tablet 50 mg PO DAILY Discontinued oxycodone-acetaminophen 5-325 mg Tablet 1 tab PO Q4-6H PRN (Reason: Pain) Follow up/Referrals: Jose Adams MD [Primary Care Provider] - Олег Chavez MD [Physician] - As previously scheduled Discharge Health Status Multidrug resistant organism: No MDRO Diet/Activity/Treatments Diet: Diet as Tolerated and Carb-consistent/Diabetic Activity: You may bear weight as tolerated on your left leg. Cold/Heat Therapy: You may apply ice for 15 minutes every hour as needed for pain control to the left knee. Skin/Wound/Dressing Care Report to your healthcare provider any signs of infection, such as:: chills, fever, night sweats, increased pain, unusual drainage and unusual redness Dressing: You may remove the Ezio wrap 3 days after surgery and shower normally with the deeper dressing in place. Do not remove the deep dressing until follow-up. If the central strip of this dressing becomes saturated with either water or blood, please call the office to have it evaluated. Visit Report/Discharge Packet Instructions: DI for Knee Replacement, DI for Prescription Opioid Use Stand Alone Forms: Surgery Discharge Discharge Data Primary Care Provider: Jose Adams
[2022-07-27] MEDS: INSULIN LISPRO 100 UNIT/ML 3ML VIAL SUBCUT ×2 (07:58→12:32)
[2022-07-27] MEDS: METFORMIN HCL 500 MG TABLET 2000 MG PO (08:05)
[2022-07-27] MEDS: DOCUSATE 100 MG CAPSULE PO (08:06)
[2022-07-27] MEDS: ASPIRIN EC 81 MG TABLET PO (08:08)
[2022-07-27] MEDS: hydroCHLOROthiazide 25 MG TABLET 50 MG PO (08:08)
[2022-07-27] MEDS: AMLODIPINE 5 MG TABLET PO (08:09)
[2022-07-27] MEDS: SODIUM CHLORIDE 0.9% FLUSH 10 ML IV (08:09)
--- NOTE | 2022-07-27 08:56 | CM.DANOTE ---
DCP Assessment: Payor confirmed: Medicare and Federal PCP Confirmed: Jose Adams MD Pt is a 67 y.o. M who presented to the hospital for a planned L TKA revision. Pt brought up to the AC unit for further management and evaluation of his procedure. DCP met with pt this morning to discuss discharge needs. Pt sitting up in bed. DCP introduced self and role. Pt is independent at baseline. Pt lives alone in a house in [place], with five steps to get into the home and 20 steps down to the basement. Pt states he takes care of his dogs and cats. Pt states that he has a walker that was loaned to him by a friend that he intends to use when he gets home. Pt states that his daughters are both nurses and live in [place]. Pt states that his friend, Gurpreet, will be picking him up from the hospital upon discharge. Pt states that he does not need any resources at this time. White board updated and instructed to call. Pt thankful for discussion. P: Pt to work with PT this morning prior to his discharge. Once cleared by PT, anticipate pt to discharge home via friend POV. DCP to continue to follow case. Anny Rojas RN/LADAN Discharge Planning/Care Management Advanced directive, confirm from FAMILY Start: 07/26/22 18:27 Freq: Q24H Status: Active Protocol: Document 07/26/22 18:27 CM (Rec: 07/26/22 18:28 CM [id number]) Advance Directive, confirm on record Time 18:28 Person contacted PT Copy received No CM Discharge Assessment Start: 07/27/22 08:55 Freq: Status: Active Protocol: Document 07/27/22 08:55 AJ (Rec: 07/27/22 08:56 AJ [id number]) Discharge Planning Assessment Assigned Optical Model Maker And Tester Anny Rojas RN/LADAN Advance Directives? Yes Advance Directives on File No History Provided By Patient Prior Living Arrangements House Household Members none Type of transporation used prior to Drives own vehicle admit Independent with ADL's Yes Is patient alert and oriented? Yes Caregiver for Another No DME Already Rented / Owned FWW / Walker Discharge Plan Home Transportation Arrangement Friend POV Referrals Initiated None needed Additional Comment At this time. Whiteboard Updated in Patient Room with Yes name and ext. # of Optical Model Maker And Tester Comment Instructed to call Review Status In Process Please Provide Date Initial DC 07/27/22 Assessment Was Performed Next Review Type Continued Stay Review Pre-Anesthesia Assessment Start: 07/13/22 10:59 Freq: Status: Complete Protocol: Document 07/13/22 10:59 CAB (Rec: 07/13/22 13:27 CAB [id number]) Pre-Anesthesia Assessment Preferred Name Delroy Patient Information Reviewed Via Phone Assessment Assessment Completed With Patient Comment Needs to do labs/ECG, COVID screen @ 07/24/22 Primary Care Provider Jose Adams Seen Specialist in Last 12 Months Yes Specialist Seen Orthopedist Primary Language Tongan Health Science Instructor Required No Height 175.26 cm Weight 97.522 kg Body Mass Index (BMI) 31.7 Hearing Ability Hearing Impaired Visual Assist Magnifying Glass Dentition Type Teeth, Natural Present,Teeth, Missing Comment Hearing loss left ear Hx Anesthesia Reactions No Hx Family Anesthesia Reaction No Hx Malignant Hyperthermia No Hx Blood Transfusions No Anesthesia Review Requested No Head Of Sales Promotion Yes: Pt declines any home assistance alcohol intake former Smoking Status Former smoker how long ago did patient quit smoking Quit 35-40 years ago Substance Use Type does not use Pain Present Pain Reported Musculoskeletal Symptoms Abnormal Gait,Difficulty Walking,Joint Pain History of Falling (Recent or History of No ) Patient is completely paralyzed or No completely immobile Mental Status Oriented to own ability Is patient on oxygen? No Does patient have JURADO/SOB No Hx Sleep Apnea Yes: Claustrophobic, does not tolerate CPAP CPAP/BIPAP use prescribed not used Currently Taking a Beta Melody No Can You Climb a Flight of Stairs Without Yes SOB Hx Chest Pain No Hx SOB No Hx Syncope or Dizziness No Anti-Coagulant Therapy No Has a Commissioning Manager No Cardiac Testing No Hx Pacemaker/ICD No Pacemaker Rep Required? No Diet Type At Home Regular Dysphagia No Gastrointestinal Symptoms None Chronic UTI No Urinary Catheter Present No Hx Urinary Self Catheterization No Diabetes Yes: Does not check blood sugars at home HgbA1C 9.4 Comment Pt states approx 1 month ago Hx Drug Resistant Organism No Presence of External or Internal Medical No Devices Have you had any close contact with No someone diagnosed with COVID-19? Received a COVID vaccine? Yes Received all doses? No Marital Status Single Lives With none Current Living Arrangements House Number of Floors (Floors) Two Floors Support System None,Significant Other Does the Patient Have Assistance After No: Pt declines having any Surgery assistance Patient Discharge Plan Description Return Home Comment Pt advised overnight length of stay per surgeon Feels Safe in Current Environment Yes Been Physically Hurt or Threatened By a No Person in Current Environment Do you have thoughts of harming yourself None or others? Are you currently considering suicide? No Do you have a plan to hurt yourself or No Plan others? Do You Have Any Spiritual Beliefs That No May Affect Your HC Choices? Do You Have Any Cultural Practices That No May Affect Your HC Choices? Comment Jew Who Can We Speak to About Patient's Care Family, friends Identifying Code for Release of Patient Declines to issue Information Health Care Proxy/Next of Kin Tamiko (daughter) Health Care Proxy Emergency Contact Name Tamiko (daughter) Emergency Contact Advance Directives? Yes Power of Coffee Grower No PAC Instructions Diabetes instructions,Durable medical equipment,Medications to take/avoid,Nasal antibiotic ,No ETOH/petroleum product on skin DOS,NPO,Post-op transportation,Sensory aids, Sturdy shoes/comfortable clothes,Do not bring valuables and remove jewelry
--- NOTE | 2022-07-27 11:53 | PT.IIE ---
Current Diagnoses Bilateral post-traumatic osteoarthritis of knee (07/26/22) Presence of left artificial knee joint (07/26/22) Surgery Performed Operation Date: 07/26/22 12:15 Actual Procedures p Total Knee Arthroplasty Revision - S/P partial knee replacement(Left) - Олег Chavez MD Surgical History (Last Reviewed 07/26/22 @ 10:40 by Wade Parra, RN) H/O vasectomy Hx of arthroscopy of left knee Hx of arthroscopy of right knee Hx of colonoscopy with polypectomy Hx of hand surgery Hx of hernia repair Hx of tonsillectomy Medical History (Last Reviewed 07/26/22 @ 10:40 by Wade Parra, ARLENE) Diabetes History of prosthetic unicompartmental arthroplasty of left knee (2017) HTN (hypertension) Hypothyroidism JONELLE (obstructive sleep apnea) Osteoarthritis Viral URI Physical Therapy Inpatient Evaluation/Re-Eval M1 PT/OT-IP Prior Functional Status Start: 07/27/22 11:40 Freq: NEEDED Status: Active Protocol: Document 07/27/22 11:40 [facility] (Rec: 07/27/22 11:53 [facility] [id number]) Medical Review Prior Functional Status Medical History Reviewed Yes Diet/Fluid Consistency Regular Communication WNL Mobility and Gait indep w/o AD Activities of Daily Living and IADL's indep Social History Household Members none Living Arrangements House Number of Floors (Floors) Two Floors Number of Stairs To Enter/Railing? 5 ALPES[employer] w/B rails; has to go into basement to let dog in/ out B rails -can hold B Home Environment Standard Height Toilet,Tub/ Shower Home Equipment Front Wheel Walker,Four Wheel Walker,Straight Cane,Grab Bars Near Toilet,Grab Bars In Shower Employment Status Retired M2 PT-IP Current Condition Start: 07/27/22 11:40 Freq: NEEDED Status: Active Protocol: Document 07/27/22 11:40 [facility] (Rec: 07/27/22 11:53 [facility] [id number]) Physical Therapy Current Condition Current Condition Evaluation Date 07/27/22 Treatment Diagnosis L TKA revision Onset Date 07/26/22 M3 PT-IP Subjective Start: 07/27/22 11:40 Freq: NEEDED Status: Active Protocol: Document 07/27/22 11:40 [facility] (Rec: 07/27/22 11:53 [facility] [id number]) Subjective Physical Therapy Visit Type Type Initial Evaluation Visit Start Time 10:45 Visit Stop Time 11:23 Total Visit Minutes 38 Number of CASINO DUTY MANAGER Visits 0 Physical Therapy Visit Comments Patient Goals get home Therapy Pain Assessment Pain When Pain Assessed During Mobility Pain Present Pain Present Pain Reported M4 PT-IP Mobility and Gait Start: 07/27/22 11:40 Freq: NEEDED Status: Active Protocol: Document 07/27/22 11:40 [facility] (Rec: 07/27/22 11:53 [facility] [id number]) PT-Transfer Assessment Sit to and From Stand Sit to and from Stand Independent Equipment Transfer Assistive Device Gait Belt,Front Wheeled Walker Orthotic/Prosthetic Devices or Brace: No Comments Mobility Comments sit to stand from window seat where pt sitting indep to 4WW- pt educated on brake use. Pt them about 100ft to stairs 4WW SBA and went up and down B rails step to SBA then amb 100ft w/4WW backt o room SBA. Pt left in room w/friend and sitting at window seat again per his request. Gait Assessment Gait Gait Assistance Required: Standby Assistance Distance (Feet) 200 Assistive Devices Assistive Device Gait Belt,Front Wheeled Walker Gait Deviations General Gait Pattern Antalgic,Decreased Stride Length Factors Limiting Gait Function Factors Limiting Gait Function Limited Range of Motion,Pain Stair Climbing Assessment Evaluation Level of Assist On Stairs Standby Assistance Devices Stair Climbing Assistive Devices Left Railing,Right Railing Technique/Endurance Stair Climbing Direction Ascend and Descend Stair Climbing Technique Step to Step Stair Climbing Set # Repetitions (reps) 1 PT-Balance Assessment Sitting Balance and Reactions Static Sitting Balance Ability Normal Dynamic Sitting Balance Ability Normal Standing Balance and Reactions Static Standing Balance Ability Good Dynamic Standing Balance Ability Good Device Used 4WW M5 PT-IP Objective Assessments Start: 07/27/22 11:40 Freq: NEEDED Status: Active Protocol: Document 07/27/22 11:40 [facility] (Rec: 07/27/22 11:53 [facility] [id number]) Orientation Orientation/Cognition Level of Alertness Alert Language Function Ability No Deficits Noted Safety Awareness Understands Safety Issues Memory Description No Deficits Noted Gross Range of Motion Lower Extremity ROM Assessment Left Impaired Strength Lower Extremity Strength Assessment Left Impaired Hip 4/5 grossly Knee 3/5 Ankle 4/5 M6 PT-IP Treatment Start: 07/27/22 11:40 Freq: NEEDED Status: Active Protocol: Document 07/27/22 11:40 [facility] (Rec: 07/27/22 11:53 [facility] [id number]) Physical Therapy Treatment Education Education Provided Precautions,Weight Bearing Status,Post-Op Packet,Safety Other Treatments Other Treatment Performed edu to keep one walker in basement and one upstairs M7 PT-IP Assessment and Plan Start: 07/27/22 11:40 Freq: NEEDED Status: Active Protocol: Document 07/27/22 11:40 [facility] (Rec: 07/27/22 11:53 [facility] [id number]) PT Summary Assessment and Plan Potential Rehabilitation Potential Excellent Status of Condition at Evaluation Stable Summary Impairments Pain,ROM,Strength,Balance, Transfers,Gait,Activity Tolerance Assessment Summary Pt presents day one post op revision L TKA with good pain control and good home set up. Pt is motivated to return home and has friend assistance as needed. He did great w/PT and demonstrated good understanding of safety and use of walker and ability to go up/down stairs. Pt cleared by PT for mobility for return home. Goals Bed Mobility Goal Independent Transfer Goal Independent Gait Goal Independent Gait Distance 200 Other Goals up/down stairs indep Days to Meet Goals 3 Frequency of Treatment Frequency Of Treatment Discharge Treatment Plan Physical Therapy Treatment Plan Bed Mobility Training,Transfer Training,Gait Training, Therapeutic Exercise,Balance Retraining,Post Op Education, Discharge Planning,Hot or Cold Pack,Neuromuscular Re-ed, Manual Therapy Weight Bearing Status Weight Bearing Status Weight Bear as Tolerated Recommendations To Nursing Amount of Assist Needed Standby Assistance Discharge Recommendations PT Discharge Recommendations Home,Outpatient PT Transportation Needs at Discharge Private Vehicle
[2022-07-27] MEDS: HYDROMORPHONE 2 MG TABLET PO (12:30)
--- NOTE | 2022-07-27 13:27 | PC.NURSE ---
Pt D/C'd home with family member. Pt is A&Ox4, VSS, pain controlled with oral pain medication. Pt verbalized understanding of D/C instructions when to follow up with surgeon and PCP as needed. Pt verbalized when to call the surgeon's office for post op complications if they arise, when to seek care at the closest ED if needed, what s/sx to watch for post op infection/complications, and how to care for the surgical area.
== END 2022-07-27 13:25 | disposition home or self-care (01) | DRG 468 ==
PROVIDERS: Admitting Provider Orthopaedic Surgery; Family Provider Family Medicine; PCP Family Medicine; Referring Provider Orthopaedic Surgery; Visit Provider Orthopaedic Surgery
PROC: 0SRD0J9 Replacement of Left Knee Joint with Synthetic Substitute, Cemented, Open Approach (ICD-10-PCS; principal; 2022-07-26 12:15)
DX: T84.84XA Pain due to internal orthopedic prosthetic devices, implants and grafts, initial encounter (principal); E11.9 Type 2 diabetes mellitus without complications; I10 Essential (primary) hypertension; E03.9 Hypothyroidism, unspecified; Z20.822 Contact with and (suspected) exposure to COVID-19; Z87.891 Personal history of nicotine dependence; Z79.84 Long term (current) use of oral hypoglycemic drugs
CPT/HCPCS: 36415; 73560; 82962; 85014; 85018; 87635; 97162; 97535; C1776; C9803; C1713; C9290; J0171; J0690; J1170; J2270; J2405; J2704; J3010

== ENCOUNTER 2023-01-29 15:08 | Inpatient (IN) | payer MEDICARE, BC, SELFPAY ==
[2022-07-26 17:42] VITALS: BMI 31.0
[2023-01-29 16:15] VITALS: BP 139/79; PULSE 94; RESP 20; TEMP 37.2; O2SAT 95
[2023-01-29] MEDS: OXYCODONE IR 10 MG TABLET PO (16:28)
[2023-01-29 16:36] VITALS: BMI 31.7
--- NOTE | 2023-01-29 18:13 | PC.NURSE ---
Pt arrived by wheelchair at 1600, direct admit from Dr. Chavez office. A&Ox4, VSS on RA, c/o 08/05 pain to L knee., oxycodone administered per OCT. Skin around L knee discolored and swollen. Lungs CTA, bowel sounds present, CMS intact (n/t to R hand from old carpel tunnel). Pt oriented to room and call light, urinal at bedside, bed alarm on.
--- NOTE | 2023-01-29 20:39 | PM.PN.1 ---
Subjective Subjective Interval history: We reviewed his history in great detail. Is a poorly-controlled diabetic. Says his hemoglobin A1c normally is about 10. The best he is ever had it is 7. He does not normally check his sugars. He does take his Jardiance and metformin. He said that he did have some continued pain after a left knee medial compartment arthroplasty. Ultimately it progressed to the extent that he underwent a left knee revision to a total knee arthroplasty. He notes that the knee then was doing reasonably well. He did develop a rash in October of this year which was felt to be possibly psoriasis. The next available dermatology appointment was in 9 months. He notes that his knee was doing well on Sunday he was able to put in some post holes for beans. He then awoke Sunday with incapacitating left knee pain. He is not had recent fever chills. He is otherwise been well and denies any recent urological symptoms dental symptoms or other problems. He has a remote history of gout about 10 years ago which was in his left great toe and he has a bottle of allopurinol at home. He did get somewhat dried out on Sunday. He notes incapacitating left knee pain. Exam Vital Signs (past 8 hours): - 01/29/23 17:30 01/29/23 16:15 Temperature 99.0 F Pulse Rate 94 H Respiratory Rate 20 Blood Pressure 139/79 Pulse Oximetry 95 Oxygen Delivery Method Room Air Oxygen Delivery Method Room Air Narrative Exam Narrative: Resting comfortably in bed, HEENT is benign lungs clear cor regular rate and rhythm abdomen soft and benign, left knee psoriatic rash distally, healed incision, significant left knee effusion, incision intact, mild erythema PFSH Medical History (Updated 01/29/23 @ 20:47 by Alexus Del Rio MD) Diabetes History of prosthetic unicompartmental arthroplasty of left knee (2018) HTN (hypertension) Hypothyroidism JONELLE (obstructive sleep apnea) Osteoarthritis Viral URI Surgical History H/O vasectomy Hx of arthroscopy of left knee Hx of arthroscopy of right knee Hx of colonoscopy with polypectomy Hx of hand surgery Hx of hernia repair Hx of tonsillectomy Social History household members: none lives independently: Yes Smoking Status: Former smoker alcohol intake: former Assessment & Plan Assessment and plan (1) Knee effusion, left: Status: Acute (2) Painful total knee replacement, left: Status: Acute (3) Gout: Status: Acute (4) Poorly controlled diabetes mellitus: Status: Acute Plan He has a tense left knee effusion which is suspicious for a periprosthetic knee joint infection. He has a short duration of acute symptoms. He has a known history of poorly controlled diabetes and gout. He had an aspiration in the clinic of fluid which was suggestive of purulence and high white blood cell count. I have recommended that we did a CBC with diff, sed rate, C-reactive protein, hemoglobin A1c, comprehensive metabolic panel, and uric acid. I think he needs a left knee irrigation and debridement and polyethylene exchange at a minimum. He may need a 2 stage revision total knee arthroplasty. We discussed that in some detail. I would like to see what his labs show. He says his knee was functioning well until Sunday. He has had an ongoing rash around his knee somewhat suspicious for low-grade periprosthetic joint infection with an acute flare-up. Cultures of his knee have been sent. He is being admitted with a plan for surgical intervention likely tomorrow. Extremely complex and difficult nature of his procedure was discussed with him. He understands and agrees. He is motivated but lives alone with his dog and cat. Quality VTE Deep Vein Thrombosis/Pulmonary Embolism Present on Admission: No
[2023-01-29 21:32] VITALS: BP 144/77; PULSE 76; TEMP 37.6; O2SAT 95
[2023-01-29] MEDS: hydrOXYzine pamoate 25 MG CAPSULE PO (21:33)
[2023-01-29] MEDS: HYDROMORPHONE 0.5 MG INJ IV (21:34)
[2023-01-29] MEDS: IBUPROFEN 400 MG TABLET PO (21:34)
[2023-01-29 21:35] LABS: Add Manual Diff / Slide Review NO; Basophils Absolute Auto 100 /uL (0-100); Basophils Percent Auto 0.6 % (0-2); Eosinophils Absolute Auto 0 /uL (0-450); Eosinophils Percent Auto 0.1 % (2-4); Hemoglobin 15.2 g/dL (13.5-17.5); Lymphocytes Absolute Auto 800 /uL (1100-4500); Mean Corpuscular HGB Conc 33.8 % (30-36); Mean Corpuscular Hemoglobin 28.8 PG (26-34); Monocytes Absolute Auto 1000 /uL (0-900); Monocytes Percent Auto 7.3 % (3-14); Neutrophils Absolute Auto 11500 /uL (1500-7000); Platelet Count 164 X10^3/uL (150-400); White Blood Cell Count 13.4 X10^3/uL (4.5-11.0)
[2023-01-29 21:49] LABS: Alanine Aminotransferase 23 IU/L (<50); Albumin 4.2 g/dL (3.5-5.0); Albumin Globulin Ratio 1.2 (1.0-2.8); Alkaline Phosphatase 58 U/L (38-126); Aspartate Aminotransferase 18 IU/L (17-59); Bilirubin Total 1.5 mg/dL (0.2-1.3); Blood Urea Nitrogen 20 mg/dL (9-20); Calcium 9.1 mg/dL (8.4-10.2); Carbon Dioxide 30 mmol/L (22-32); Chloride 89 mmol/L (98-107); Estimated Glomerular Filt Rate > 60 mL/min (>60); Globulin 3.4 g/dL (1.7-4.1); Glucose 198 mg/dL (80-110); HEMOLYSIS < 15 (0-50); Potassium 3.6 mmol/L (3.4-5.1); Sodium 130 mmol/L (137-145); Total Protein 7.6 g/dL (6.3-8.2); Uric Acid 8.4 mg/dL (3.5-8.5)
[2023-01-29 22:01] LABS: Erythrocyte Sedimentation Rate 16 MM/HR (0-15)
[2023-01-30] VITALS (13 sets, daily range): BP systolic 117–161; BP diastolic 60–92; PULSE 55–87; RESP 13–20; TEMP 36.4–39; O2SAT 94–99; BMI 31.7
[2023-01-30] MEDS: IBUPROFEN 400 MG TABLET PO ×3 (00:23→21:36)
[2023-01-30] MEDS: ACETAMINOPHEN 325 MG TABLET 650 MG PO ×3 (00:24→19:36)
[2023-01-30] MEDS: OXYCODONE IR 5 MG TABLET PO ×3 (00:24→19:59)
[2023-01-30 01:05] LABS: C-Reactive Protein Quant 54.9 mg/dL (<1.0)
[2023-01-30] MEDS: LEVOTHYROXINE 100 MCG TABLET 200 MCG PO (05:45)
[2023-01-30] MEDS: HYDROMORPHONE 0.5 MG INJ IV ×2 (11:11→16:15)
--- NOTE | 2023-01-30 11:49 | CM.DANOTE ---
Addendum entered by MICHELL Kinney 01/30/23 11:56: ADD: Patient lives alone, indp and active at his baseline Original Note: Initial DCP Assessment Note Patient is a 67 yo male, resident of [place], presents from an Orthopedic office visit with suspected periprosthetic knee joint infection, PMH includes left TKA PCP Jose Funez [facility] Attempted to meet with patient this morning and he was visiting with a friend at bedside. Patient in good spirits, typically indp and active at baseline. This [employer] WIRING TECHNICIAN completing initial assessment with information available on the chart; namely Dr Del Rio's medical note Patient with PMH of poorly controlled diabetes now with need for I+D under anesthesia and potential for polyethylene exchange vs revision total knee arthroplasty according to Dr Del Rio's prog note CM team will plan to follow this patient's discharge needs closely. Patient may not have good home infusion coverage with his [facility] however will have good SNF coverage after three admitted INPT nights Following closely for coordination of DCP MICHELL Costello Discharge Planning/Care Management CM Discharge Assessment Start: 01/30/23 11:46 Freq: Status: Active Protocol: Document 01/30/23 11:46 GERI (Rec: 01/30/23 11:49 GERI [id number]) Discharge Planning Assessment Assigned Clerk Of Court MICHELL Lyon DPOA/Assigned Designee Name Eli Moreno, friend ( Lino) Contact Information [phone] Advance Directives? Yes Advance Directives on File No History Provided By Patient,Medical Record Prior Living Arrangements House Household Members none Type of transporation used prior to Drives own vehicle admit Independent with ADL's Yes Is patient alert and oriented? Yes Comment TBD Discharge Plan Home Transportation Arrangement Friend POV Referrals Initiated None needed Additional Comment At this time.
--- NOTE | 2023-01-30 15:52 | PC.NURSE ---
Event Note Patient with CBG of 300 at 1120. No SSI ordered. hearing screener PA called and left message at 1125. No call back. Repeat CBG obtained at 1523, CBG 219. No new orders or call back received as of yet. Will update OUTSIDE INDUSTRIAL SALES REPRESENTATIVE.
--- NOTE | 2023-01-30 16:37 | PM.PREOP ---
Pre-operative Note Interval Note History & Physical reviewed/Exam performed by Physician: Yes Changes to H&P: No H&P completed within 30 days and has changed as indicated here:: Continued ongoing knee pain. White count is 13 his sed rate is low at 16 but he has elevated C-reactive protein. Stat Gram stain did not show any organisms cultures are still pending
--- NOTE | 2023-01-30 16:39 | P.OP_ITS ---
Operative Date/Time/Diagnoses Date of procedure: 01/30/23 Time of procedure: 17:00 Pre-op diagnosis: 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 Chavez in June. He did reasonably well after his revision knee arthroplasty. He did have some problems with a slight rash. He was then doing well until Sunday when he developed severe knee pain and he came and was evaluated in the clinic on Sunday noted to have a tense effusion. An aspiration was suggestive of infection and he was brought to the operating room for irrigation and debridement. His Gram stain did not show organisms his cultures are still pending. His white count was mildly elevated but he is now developed fevers. Surgeon: Alexus Del Rio Sql Programmer: Meng Baron Anesthesia Type: General Operative Notes Findings: Significant cloudy fluid in the knee, marked thickening of the synovium, no obvious loosening of the prosthesis, multiple intraoperative cultures sent Closure Type: primary Specimen(s): other (Multiple cultures including a mixed culture for PCR and fluid for culture and sensitivity, synovium for culture and tissue for culture and sensitivity and a tibial specimen from the medial aspect of the tibia) Prosthetic devices, grafts, tissues, transplants, or devices: Del Rio and Nephew Nenita BCs us to size 11 poly for a 5- 6 tibia Applied: drain(s) Estimated Blood Loss (mL): 250 Blood products transfused: none Tourniquet time (min): 57 Procedure in detail: Patient was brought the operating time-out was performed. He underwent induction with general anesthetic. His left lower extremity was prepped and draped standard sterile fashion. It was draped sterilely. Patient's previous skin incision was used dissection was carried out through skin and subcutaneous tissues. Small strip of skin directly over the incision was removed. Patient's previous arthrotomy incision was used. There was gross purulent fluid in the knee we got cultures of that and. His. A very extensive synovectomy was performed. There was marked thickening of the capsule and the synovium. I basically stripped all of the synovium from the suprapatellar pouch and both gutters. Polyethylene was removed I then stripped the synovium from the posterior aspect of the knee. The prosthesis was then meticulously scrubbed with a scrub we removed his existing stitches. There was no obvious loosening of the components. I sent specimens of synovium, intercondylar notch tissue and tibial tissue which was taken directly along the junction of the cement mantle and the proximal medial tibia. There was no obvious loosening. Intraoperative findings were highly suggestive of significant infection. The knee was irrigated with multiple 3 L bags of irrigation. After all contaminated appearing tissue had been removed an 11 polyethylene was carefully inserted. Antibiotic vancomycin beads were then carefully packed throughout the knee joint. The wound was closed with interrupted PDS subcutaneous tissues were flaquita sed with interrupted PDS and skin lidia. A drain was placed. Marcaine was injected. Patient tolerated the procedure well. He was transferred to recovery room in satisfactory condition and the cultures were sent to the lab. We will place a PICC line and put him on IV antibiotics.. A PA was used throughout the procedure and was essential for retraction hemostasis and assisting in mobilizing the tissues and successful reimplantation of the polyethylene. Complications: none Post-operative Condition: stable Disposition: Acute Care Plan for aftercare: Weight-bearing as tolerated on the left lower extremity. Okay to do range of motion exercises. Follow culture results with a plan for 6 weeks of IV antibiotics and then some continued suppression. We discussed that he may fail this and require formal 2 stage revision. We will work on progressively rehabbing him and place a PICC line. All cultures are currently pending.
[2023-01-30] MEDS: LACTATED RINGERS 1,000 ML 42 ML IV (16:52)
--- NOTE | 2023-01-30 16:52 | PC.NURSE ---
Midline placed upper lt arm, basilic vein, line is 8cm 20g. placed on first try.
--- NOTE | 2023-01-30 17:03 | SUR.HOLD ---
Patient presents with oral temp of 102.2. Notified Surgeon and anesthesiologist. No new orders. Blood sugar 167 . No new orders. Patient denies any cough or respiratory symptoms. Lungs CTA.
[2023-01-30] MEDS: TRANEXAMIC ACID 1,000 MG VIAL 1000 MG INJ ×2 (17:28→18:31)
--- NOTE | 2023-01-30 17:57 | SUR.OPER ---
Supine on padded OR bed. Pillow under head, arms secured on padded armboards <90 degree abduction. Safety belt across torso. Non-operative leg secured with tape over blanket over lower leg. Operative leg secured in DeMayo/Lowell/Nathe positioner. Foam padded brace at thigh of operative leg.
[2023-01-30] MEDS: CEFAZOLIN 2 GM/100 ML PREMIX 100 ML IV (18:05)
[2023-01-30] MEDS: VANCOMYCIN 1,000 MG/200 ML PIGGYBACK 200 MG IV (18:08)
[2023-01-30] MEDS: BUPIVACAINE LIPOSOME 266 MG/20 ML VIAL INJ (18:23)
[2023-01-30] MEDS: VANCOMYCIN 1,000 MG VIAL 1000 MG TOP (18:25)
[2023-01-30] MEDS: BUPIVACAINE 0.25% (PF) 60 ML, EPINEPHrine 0.3 MG INJ (18:27)
[2023-01-30] MEDS: hydrOXYzine 50 MG/ML INJ 25 MG IM (19:07)
[2023-01-30] MEDS: ONDANSETRON 4 MG/2 ML INJ IV (19:27)
[2023-01-30] MEDS: LACTATED RINGERS 1,000 ML 100 ML IV ×2 (20:00→23:34)
[2023-01-30 20:39] LABS: Add Manual Diff / Slide Review NO; Basophils Absolute Auto 100 /uL (0-100); Basophils Percent Auto 0.8 % (0-2); Eosinophils Absolute Auto 0 /uL (0-450); Eosinophils Percent Auto 0.1 % (2-4); Hematocrit 41.2 % (41-53); Hemoglobin 13.9 g/dL (13.5-17.5); Lymphocytes Absolute Auto 700 /uL (1100-4500); Lymphocytes Percent Auto 6.4 % (25-40); Mean Corpuscular HGB Conc 33.9 % (30-36); Mean Corpuscular Volume 85.5 fL (80-100); Monocytes Absolute Auto 700 /uL (0-900); Monocytes Percent Auto 6.5 % (3-14); Neutrophils Absolute Auto 9200 /uL (1500-7000); Neutrophils Percent Auto 86.2 % (50-75); Platelet Count 169 X10^3/uL (150-400); Red Blood Cell Count 4.82 X10^6/uL (4.5-5.9); Red Cell Distribution Width 15.5 % (11.6-14.8); White Blood Cell Count 10.7 X10^3/uL (4.5-11.0)
--- NOTE | 2023-01-30 20:47 | PC.NURSE ---
hemovac 2044 hemovac unclamped per order. red fluid to collection tubing. hemovac patent and compressed and pt educated about device.
[2023-01-30] MEDS: DOCUSATE 100 MG CAPSULE PO (21:36)
[2023-01-30] MEDS: ASPIRIN EC 81 MG TABLET PO (21:36)
[2023-01-31] VITALS: BP 119/62; PULSE 95; RESP 17; TEMP 37.1; O2SAT 95
[2023-01-31] MEDS: ACETAMINOPHEN 325 MG TABLET 650 MG PO ×4 (00:38→18:06)
[2023-01-31] MEDS: IBUPROFEN 400 MG TABLET PO ×6 (00:39→20:37)
[2023-01-31 02:13] LABS: x Labcorp Estim. Avg Glu (eAG) 255 mg/dL (.); x Labcorp Hemoglobin A1c 10.5 % (4.8-5.6)
[2023-01-31] MEDS: CEFAZOLIN 2 GM/100 ML PREMIX 100 ML IV ×2 (02:38→09:11)
[2023-01-31] MEDS: INSULIN LISPRO 100 UNIT/ML 3ML VIAL SUBCUT ×5 (02:38→22:44)
[2023-01-31 04:00] VITALS: BP 122/66; PULSE 67; RESP 16; TEMP 36.7; O2SAT 99
[2023-01-31] MEDS: VANCOMYCIN 1,000 MG/200 ML PIGGYBACK 200 MG IV (05:53)
--- NOTE | 2023-01-31 07:23 | DI.RAD.S_ITS ---
PROCEDURE: XR CHEST FOR PICC 1V INDICATIONS: PICC placement COMPARISON: [facility], , XR CHEST 1V, 08/10/2021, 18:10. FINDINGS: PICC was placed by the intravenous therapy team from the left side. Fluoroscopic spot film demonstrates the tip of PICC projecting to the area of SVC. IMPRESSION: Tip of PICC projects to the area of SVC. Dictated by: Marbin Patel M.D. on 01/31/2023 at 11:28 Approved by: Marbin Patel M.D. on 01/31/2023 at 11:29
[2023-01-31 07:33] LABS: Hematocrit 36.7 % (41-53); Hemoglobin 12.3 g/dL (13.5-17.5)
--- NOTE | 2023-01-31 08:10 | P.PN_ITS ---
Subjective Subjective Interval history: Delroy is awake this morning lying in bed comfortably. He states that he is having some pain to the knee down into the foot, though his pain has been well controlled. We discussed that due to his knee infection he will have a picc line placed today and that he will be on IV antibiotics for 6 weeks. Exam Vital Signs (past 8 hours): - 01/31/23 04:00 Temperature 98.1 F Pulse Rate 67 Respiratory Rate 16 Blood Pressure 122/66 Pulse Oximetry 99 Oxygen Flow Rate 2 Oxygen Delivery Method Nasal Cannula Oxygen Flow Rate 2 Narrative Exam Narrative: Pleasant 67-year-old male. Awake, alert, and oriented. Intraoperative nancy bandage clean, dry, and intact, to suction. Overlying Ezio bandage intact. moderate swelling to the left lower extremity from knee to toes. Strength and sensation intact to bilateral lower extremities. Bilateral calves soft, compressible, nontender with no palpable cords or masses. Objective Labs 01/31/23 05:00 01/29/23 21:24 Labs: Laboratory Results - last 24 hr 01/29/23 01/30/23 01/31/23 21:24 20:33 05:00 WBC 10.7 RBC 4.82 Hgb 13.9 12.3 L Hct 41.2 36.7 L MCV 85.5 MCH 29.0 MCHC 33.9 RDW 15.5 H Plt Count 169 Neut % (Auto) 86.2 H Lymph % (Auto) 6.4 L [place] % (Auto) 6.5 Eos % (Auto) 0.1 L Baso % (Auto) 0.8 Neut # (Auto) 9200 H Lymph # (Auto) 700 L [place] # (Auto) 700 Eos # (Auto) 0 Baso # (Auto) 100 Hgb A1c (Ref Lab) 10.5 H Estim Average Glucose 255 [facility] Medical History Diabetes History of prosthetic unicompartmental arthroplasty of left knee (2018) HTN (hypertension) Hypothyroidism JONELLE (obstructive sleep apnea) Osteoarthritis Viral URI Surgical History H/O vasectomy Hx of arthroscopy of left knee Hx of arthroscopy of right knee Hx of colonoscopy with polypectomy Hx of hand surgery Hx of hernia repair Hx of tonsillectomy Social History household members: none lives independently: Yes Smoking Status: Former smoker alcohol intake: former Assessment & Plan Post-op Postoperative Procedures: Procedures Operation Date: 01/30/23 16:45 Actual Procedure Side Surgeon p Incision and Drainage Wound/Extremity Knee with poly exchange Left Alexus Del Rio MD Postoperative day: 1 Postoperative status: doing well Postoperative status narrative: Patient is progressing as expected after washout of total knee arthroplasty with poly exchange. Postoperative plan narrative: G stain of synovial fluid and left tibial notch revealed gram positive cocci and WBCs. Cultures pending. Plan for PICC placement today, anticipating 6 weeks of IV antibiotics. Patient to be up with physical therapy today. Disposition pending. Quality VTE Deep Vein Thrombosis/Pulmonary Embolism Present on Admission: No
[2023-01-31] MEDS: DOCUSATE 100 MG CAPSULE PO ×2 (09:11→20:37)
[2023-01-31] MEDS: ASPIRIN EC 81 MG TABLET PO ×2 (09:11→20:37)
[2023-01-31] MEDS: OXYCODONE IR 10 MG TABLET PO ×2 (10:27→18:11)
--- NOTE | 2023-01-31 11:06 | CM.DPNOTE ---
DCP Note Chart indicates expectation for 6 wks IV abx r/t the infection in patient's knee Met w/patient minutes before the placement of his PICC, discussed dispo options that would provide him with 6 weeks IV abx (drug, dosing, duration unknown at this time) 1. SNF for IV abx, covered by patient's Medicare patient says he will absolutely not consider going to a SNF 2. Home Infusion patient does not have IV abx coverage with his Medicare and states he cannot pay out of pocket most likely 3. Infusion Suite at [facility] or Other Infusion Suite this service would be covered by patient's Medicare however the abx would need to be Q24 in order for patient to make it from [place] MICHELL Thomas
--- NOTE | 2023-01-31 12:37 | PT.IIE ---
Current Diagnoses Type 2 diabetes mellitus with hyperglycemia (01/29/23) Gout, unspecified (01/29/23) Effusion, left knee (01/29/23) Pain due to internal orthopedic prosthetic devices, implants and grafts, initial encounter (01/29/23) Presence of left artificial knee joint (01/29/23) Surgery Performed Operation Date: 01/30/23 16:45 Actual Procedures p Incision and Drainage Wound/Extremity Knee with poly exchange(Left) - Alexus Del Rio MD Surgical History (Last Reviewed 01/31/23 @ 08:17 by Guerline Dunlap PA-C) H/O vasectomy Hx of arthroscopy of left knee Hx of arthroscopy of right knee Hx of colonoscopy with polypectomy Hx of hand surgery Hx of hernia repair Hx of tonsillectomy Medical History (Last Reviewed 01/31/23 @ 08:17 by Guerline Dunlap PA-C) Diabetes History of prosthetic unicompartmental arthroplasty of left knee (2018) HTN (hypertension) Hypothyroidism JONELLE (obstructive sleep apnea) Osteoarthritis Viral URI Physical Therapy Inpatient Evaluation/Re-Eval M1 PT/OT-IP Prior Functional Status Start: 01/31/23 12:21 Freq: NEEDED Status: Active Protocol: Document 01/31/23 12:21 ES (Rec: 01/31/23 12:37 ES [id number]) Medical Review Prior Functional Status Medical History Reviewed Yes Diet/Fluid Consistency Regular Communication Indep, deaf in L ear Mobility and Gait Indep with occasional use of walking stick. Was walking [place] and working in his garden. Activities of Daily Living and IADL's Indep Prior Functional Level (Other details) Able to drive Social History Household Members none Living Arrangements House Number of Floors (Floors) Two Floors Number of Stairs To Enter/Railing? 4 [place] with B rails. Has a basement level but does not need to use. Home Equipment Four Wheel Walker,Straight Cane Employment Status Retired Additional Social History Comment Has 2 small dogs at home. M2 PT-IP Current Condition Start: 01/31/23 12:21 Freq: NEEDED Status: Active Protocol: Document 01/31/23 12:21 ES (Rec: 01/31/23 12:37 ES [id number]) Physical Therapy Current Condition Current Condition Evaluation Date 06/07/23 Treatment Diagnosis S/p I&D L knee with poly exchange Onset Date 01/30/23 M3 PT-IP Subjective Start: 01/31/23 12:21 Freq: NEEDED Status: Active Protocol: Document 01/31/23 12:21 ES (Rec: 01/31/23 12:37 ES [id number]) Subjective Physical Therapy Visit Type Type Initial Evaluation Visit Start Time 11:11 Visit Stop Time 11:52 Total Visit Minutes 41 Physical Therapy Visit Comments Patient Comments Patient alert in bed, reported his L knee feels stiff and swollen but not too painful at rest. Agreeable to work with PT. Patient Goals To go home. Does not want SNF. M4 PT-IP Mobility and Gait Start: 01/31/23 12:21 Freq: NEEDED Status: Active Protocol: Document 01/31/23 12:21 ES (Rec: 01/31/23 12:37 ES [id number]) PT-Bed Mobility Assessment Supine to Sit Supine to Sit Minimal Assistance,Head of Bed Elevated,Bedrails Scooting Scooting to Edge of Bed Independent PT-Transfer Assessment Sit to and From Stand Sit to and from Stand Standby Assistance,Use of Upper Extremities Equipment Transfer Assistive Device Gait Belt,Front Wheeled Walker Transfers Transfer Destination Chair Transfer Technique Ambulated Transfer Ability Level of Assist Standby Assistance,Use of Upper Extremities Comments Mobility Comments Min A for helping LLE off edge of bed. Required extra time to complete due to L knee stiffness and pain. Gait Assessment Gait Gait Assistance Required: Standby Assistance Distance (Feet) 250 Assistive Devices Assistive Device Gait Belt,Front Wheeled Walker Gait Deviations General Gait Pattern Antalgic Factors Limiting Gait Function Factors Limiting Gait Function Decreased Strength,Limited Range of Motion,Pain PT-Balance Assessment Sitting Balance and Reactions Static Sitting Balance Ability Normal Dynamic Sitting Balance Ability Normal Standing Balance and Reactions Static Standing Balance Ability Good Dynamic Standing Balance Ability Good Device Used FWW M5 PT-IP Objective Assessments Start: 01/31/23 12:21 Freq: NEEDED Status: Active Protocol: Document 01/31/23 12:21 ES (Rec: 01/31/23 12:37 ES [id number]) Orientation Orientation/Cognition Level of Alertness Alert Orientation Name,Age,Birthday,Month,Date, Year,Day of Week,Place, Situation Language Function Ability No Deficits Noted Safety Awareness Understands Safety Issues Memory Description No Deficits Noted Gross Range of Motion Upper Extremity ROM Assessment Within Functional Limits Lower Extremity ROM Assessment Left Impaired Impairments L knee flexion and extension both limited due to pain, swelling, stiffness. Otherwise WFL. Strength Upper Extremity Strength Assessment Within Functional Limits Lower Extremity Strength Assessment Left Impaired Comments Strength Comments L knee impaired due to pain 2/ 2 surgery and infection, otherwise WFL M6 PT-IP Treatment Start: 01/31/23 12:21 Freq: NEEDED Status: Active Protocol: Document 01/31/23 12:21 ES (Rec: 01/31/23 12:37 ES [id number]) Physical Therapy Treatment Education Education Provided Safety M7 PT-IP Assessment and Plan Start: 01/31/23 12:21 Freq: NEEDED Status: Active Protocol: Document 01/31/23 12:21 ES (Rec: 01/31/23 12:37 ES [id number]) PT Summary Assessment and Plan Potential Rehabilitation Potential Good Status of Condition at Evaluation Evolving Summary Impairments Pain,ROM,Strength,Bed Mobility ,Gait,Activity Tolerance Assessment Summary Patient is a 67 year old male s/p I&D L knee for infection. He demonstrates impaired mobility due to the above problems, and benefits from use of FWW for mobility. He would benefit from skilled therapy during hospitalization to increase ROM, strength, and activity tolerance to be able to manage functional activity independently at home . He may benefit from HHPT vs OPPT at d/c depending on his ability to drive/get rides in order to further address remaining L knee impairments. Goals Bed Mobility Goal Independent Transfer Goal Independent,Front Wheeled Walker Gait Goal Independent,Front Wheel Walker Gait Distance 300 ft Other Goals Patient will be able to ascend /descend 4 stairs independently with rail and walker. Days to Meet Goals 5 Frequency of Treatment Frequency Of Treatment Once a Day Treatment Plan Physical Therapy Treatment Plan Bed Mobility Training,Transfer Training,Gait Training, Therapeutic Exercise,Post Op Education,Discharge Planning, Hot or Cold Pack Weight Bearing Status Weight Bearing Status Weight Bear as Tolerated Recommendations To Nursing Amount of Assist Needed Standby Assistance,1 Person Assist Discharge Recommendations PT Discharge Recommendations Home,Home Health,Outpatient PT Other Discharge Recommendations HHPT vs OPPT Transportation Needs at Discharge Private Vehicle
--- NOTE | 2023-01-31 13:56 | OT.IPNOTE ---
Went to talk to pt regarding OT needs and pt is insistent that he will be fine to take care of himself. Suggested to pt may be good to have someone come to take him home versus drive at this time. Pt once again states he will be fine. Pt's friend in the room and states that pt is stubborn. Pt not wanting any OT at this time. To touch base with pt again tomorrow , otherwise discharge pt for OT services if pt refuses.
[2023-01-31 15:48] VITALS: BP 151/77; PULSE 66; RESP 16; TEMP 36; O2SAT 96
[2023-01-31] MEDS: cefTRIAXone 2,000 MG in SODIUM CHLORIDE 0.9% 100 ML 200 MG IV (18:07)
[2023-01-31 20:00] VITALS: BP 141/74; PULSE 69; RESP 18; TEMP 37; O2SAT 97
[2023-01-31] MEDS: polyethylene glycoL 3350 17 GM POWD.PACK PO (20:37)
[2023-01-31] MEDS: LACTATED RINGERS 1,000 ML 100 ML IV (20:39)
[2023-02-01] VITALS: BP 133/65; PULSE 59; RESP 18; TEMP 36.2; O2SAT 97
[2023-02-01] MEDS: ACETAMINOPHEN 325 MG TABLET 650 MG PO ×3 (01:07→11:44)
[2023-02-01] MEDS: IBUPROFEN 400 MG TABLET PO ×6 (01:08→21:05)
[2023-02-01 04:00] VITALS: BP 147/77; PULSE 51; RESP 16; TEMP 36.3; O2SAT 97
[2023-02-01] MEDS: OXYCODONE IR 5 MG TABLET PO (05:34)
--- NOTE | 2023-02-01 05:55 | PC.NURSE ---
pt stayed up in the recliner the majority of the shift; his pain has been well controlled until this morning and he c/o pain to left knee 04/05; scheduled tylenol and ibuprofen given along with oxy 5mg po
[2023-02-01] MEDS: LACTATED RINGERS 1,000 ML 100 ML IV ×2 (06:56→21:06)
--- NOTE | 2023-02-01 07:49 | PM.PNPO.1 ---
Subjective Subjective Date Patient Seen: 02/01/23 Time Patient Seen: 07:49 Interval history: Pain [id number]. Denies fever or chills. No nausea or vomiting. Exam Vital Signs (past 8 hours): - 02/01/23 00:00 02/01/23 04:00 Temperature 97.2 F L 97.4 F L Pulse Rate 59 L 51 L Respiratory Rate 18 16 Blood Pressure 133/65 147/77 H Pulse Oximetry 97 97 Oxygen Delivery Method Room Air Oxygen Flow Rate 2 Narrative Exam Narrative: Hemovac in place. 67-year-old male resting comfortably in bed in no apparent distress. Eknroy dressing is on and functioning. Motor functions intact distal left lower extremity. Sensation grossly intact to light touch. Const General: cooperative and comfortable Nutritional Appearance: well nourished Orientation: alert Resp Effort & Inspection: normal respiratory effort and able to speak in complete sentences Objective Labs 01/31/23 05:00 01/29/23 21:24 Labs: [facility] CLIA ID [id number] [address] [place] [address] RUN DATE: 02/01/23 Specimen Inquiry PAGE 1 RUN TIME: 749 Name: Gideon Oates Age/Sex: 67/M Attend Dr: Олег Chavez MD Unit#: [id number] : 1955Location: 223-1 Re01/29/23 Disch: Status: ADM IN SPEC #: [id number] ANA CRISTINA: 01/30/23 STATUS: RES REQ #: [id number] SPDESC: RECD: 01/30/23-[address]: Alexus Del Rio MD SOURCE: Knee Lt ENTR: 01/30/23-[address]: Jose Adams MD, Kenneth M MD FAX TO: ORDERED: WOUND Cx and GS COMMENTS: Comment left knee tibial knotch Procedure Result Verified Site Gram Stain Final 01/31/23-07 White blood cells Many WBCs seen Gram Positive Cocci 2+ Aerobic Culture for wounds Preliminary 01/31/23-1051 Very Early Growth Very Early Growth: Culture too young for work-up reincubated Anaerobic Culture Pending [facility] Medical History Diabetes History of prosthetic unicompartmental arthroplasty of left knee (2018) HTN (hypertension) Hypothyroidism JONELLE (obstructive sleep apnea) Osteoarthritis Viral URI Surgical History H/O vasectomy Hx of arthroscopy of left knee Hx of arthroscopy of right knee Hx of colonoscopy with polypectomy Hx of hand surgery Hx of hernia repair Hx of tonsillectomy Social History household members: none lives independently: Yes Smoking Status: Former smoker alcohol intake: former Assessment & Plan Post-op Postoperative Procedures: Procedures Operation Date: 01/30/23 16:45 Actual Procedure Side Surgeon p Incision and Drainage Wound/Extremity Knee with poly exchange Left Alexus Del Rio MD Postoperative day: 2 Postoperative status: doing well Postoperative plan narrative: Patient is progressing as expected after washout of total knee arthroplasty with poly exchange. Postoperative plan narrative: G stain of synovial fluid and left tibial notch revealed gram positive cocci and WBCs. Cultures pending. Anticipating 6 weeks of IV antibiotics. Patient to be up with physical therapy today. Disposition pending. Quality VTE Deep Vein Thrombosis/Pulmonary Embolism Present on Admission: No
[2023-02-01] MEDS: ASPIRIN EC 81 MG TABLET PO ×2 (08:05→21:05)
[2023-02-01] MEDS: DOCUSATE 100 MG CAPSULE PO ×2 (08:05→21:05)
[2023-02-01] MEDS: INSULIN LISPRO 100 UNIT/ML 3ML VIAL SUBCUT ×4 (08:08→21:07)
[2023-02-01 08:26] VITALS: BP 131/75; PULSE 53; RESP 16; TEMP 36.2; O2SAT 97
--- NOTE | 2023-02-01 08:42 | OT.IPNOTE ---
Touched base with pt and pt states has no OT needs anymore. Discharge pt from OT services.
--- NOTE | 2023-02-01 11:33 | PT.IPTN ---
Current Diagnoses Type 2 diabetes mellitus with hyperglycemia (01/29/23) Gout, unspecified (01/29/23) Effusion, left knee (01/29/23) Pain due to internal orthopedic prosthetic devices, implants and grafts, initial encounter (01/29/23) Presence of left artificial knee joint (01/29/23) Surgery Performed Operation Date: 01/30/23 16:45 Actual Procedures p Incision and Drainage Wound/Extremity Knee with poly exchange(Left) - Alexus Del Rio MD Physical Therapy Treatment Note M2 PT-IP Current Condition Start: 01/31/23 12:21 Freq: NEEDED Status: Active Protocol: Document 01/31/23 12:21 ES (Rec: 01/31/23 12:37 ES [id number]) Physical Therapy Current Condition Current Condition Evaluation Date 01/31/23 Treatment Diagnosis S/p I&D L knee with poly exchange Onset Date 01/30/23 M3 PT-IP Subjective Start: 01/31/23 12:21 Freq: NEEDED Status: Active Protocol: Document 02/01/23 10:44 KS (Rec: 02/01/23 12:39 KS [id number]) Subjective Physical Therapy Visit Type Type Treatment Note Visit Start Time 10:44 Visit Stop Time 11:23 Total Visit Minutes 39 Number of MARKETING AUTOMATION ANALYST Visits 1 Physical Therapy Visit Comments Patient Comments Pt agreeable to stair training Patient Goals To go home. Does not want SNF. M4 PT-IP Mobility and Gait Start: 01/31/23 12:21 Freq: NEEDED Status: Active Protocol: Document 02/01/23 10:44 KS (Rec: 02/01/23 12:39 KS [id number]) PT-Bed Mobility Assessment Supine to Sit Supine to Sit Standby Assistance Sit to Supine Sit to Supine Minimal Assistance Scooting Scooting to Edge of Bed Independent PT-Transfer Assessment Sit to and From Stand Sit to and from Stand Standby Assistance,Use of Upper Extremities Equipment Transfer Assistive Device Gait Belt,Front Wheeled Walker Transfers Transfer Destination Bed,Wheelchair Transfer Technique Ambulated Transfer Ability Level of Assist Standby Assistance,Use of Upper Extremities Comments Mobility Comments Pt in bed upon arrival and agreeable to practice stairs. SBA for sup<>Sit and sit<> stand w/ FWW. Ambulated to w/c in hallway for transport to stairs for energy conservation . Pt ascended/descended 6 total steps w/ BHR and SBA, wc back to room but ambulated last ~30 ft and went to toilet . Left in bathroom w/ all needs in reach and RN aware. Gait Assessment Gait Gait Assistance Required: Standby Assistance Distance (Feet) 30 Assistive Devices Assistive Device Gait Belt,Front Wheeled Walker Gait Deviations General Gait Pattern Antalgic Factors Limiting Gait Function Factors Limiting Gait Function Decreased Strength,Limited Range of Motion,Pain Comments Gait Comments See mobility Stair Climbing Assessment Evaluation Level of Assist On Stairs Standby Assistance,1 Person Assistance Devices Stair Climbing Assistive Devices Left Railing,Right Railing Technique/Endurance Stair Climbing Direction Ascend and Descend Stair Climbing Technique Step to Step Number of Steps Climbed 3 Stair Climbing Set # Repetitions (reps) 2 Comments Stair Climbing Comments Ascended/descended 6 total steps w/ BHR step to pattern and SBA. PT-Balance Assessment Sitting Balance and Reactions Static Sitting Balance Ability Normal Dynamic Sitting Balance Ability Normal Standing Balance and Reactions Static Standing Balance Ability Good Dynamic Standing Balance Ability Good Device Used FWW M5 PT-IP Objective Assessments Start: 01/31/23 12:21 Freq: NEEDED Status: Active Protocol: Document 01/31/23 12:21 ES (Rec: 01/31/23 12:37 ES [id number]) Orientation Orientation/Cognition Level of Alertness Alert Orientation Name,Age,Birthday,Month,Date, Year,Day of Week,Place, Situation Language Function Ability No Deficits Noted Safety Awareness Understands Safety Issues Memory Description No Deficits Noted Gross Range of Motion Upper Extremity ROM Assessment Within Functional Limits Lower Extremity ROM Assessment Left Impaired Impairments L knee flexion and extension both limited due to pain, swelling, stiffness. Otherwise WFL. Strength Upper Extremity Strength Assessment Within Functional Limits Lower Extremity Strength Assessment Left Impaired Comments Strength Comments L knee impaired due to pain 2/ 2 surgery and infection, otherwise WFL M6 PT-IP Treatment Start: 01/31/23 12:21 Freq: NEEDED Status: Active Protocol: Document 02/01/23 10:44 KS (Rec: 02/01/23 12:39 KS [id number]) Physical Therapy Treatment Education Education Provided Safety M7 PT-IP Assessment and Plan Start: 01/31/23 12:21 Freq: NEEDED Status: Active Protocol: Document 02/01/23 10:44 KS (Rec: 02/01/23 12:39 DE [id number]) PT Summary Assessment and Plan Potential Rehabilitation Potential Good Summary Impairments Pain,ROM,Strength,Bed Mobility ,Gait,Activity Tolerance Progress Towards Goals Progressing Toward Goals Assessment Summary Pt SBA for mobility and able to complete stair training today, limited primarily by pain but shows good tolerance for activity. Anticipate pt will be safe to d/c home when medically stable. He will benefit from outpatient PT or possibly HHPT to improve strength, ROM, and activity tolerance. Goals Bed Mobility Goal Independent Transfer Goal Independent,Front Wheeled Walker Gait Goal Independent,Front Wheel Walker Gait Distance 300 ft Other Goals Patient will be able to ascend /descend 4 stairs independently with rail and walker. Days to Meet Goals 5 Frequency of Treatment Frequency Of Treatment Once a Day Treatment Plan Physical Therapy Treatment Plan Bed Mobility Training,Transfer Training,Gait Training, Therapeutic Exercise,Post Op Education,Discharge Planning, Hot or Cold Pack Weight Bearing Status Weight Bearing Status Weight Bear as Tolerated Recommendations To Nursing Amount of Assist Needed Standby Assistance,1 Person Assist Discharge Recommendations PT Discharge Recommendations Home,Home Health,Outpatient PT Other Discharge Recommendations HHPT vs OPPT Transportation Needs at Discharge Private Vehicle
[2023-02-01] MEDS: OXYCODONE IR 10 MG TABLET PO ×3 (11:41→21:05)
--- NOTE | 2023-02-01 15:05 | PC.NURSE ---
0930 - Left knee drain removed per communication order. Patient tolerated well.
--- NOTE | 2023-02-01 16:04 | DIET.CONS2 ---
Dietary Inpatient Consultation Note Admission Date: 01/29/2023 15:08 RD to meet with pt Sunday morning re: elevated A1c (10.5) and associated infected surgical site infection. Diet: 01/30/23 Dinner Carbohydrate Consistent Diet Diet Modifications: Carbohydrate level: Large (4 CHO) Reflex DM orders: Yes Nutrition Percent Meal Consumed 100% 02/01/23 09:34 Percent Meal Consumed 100% 01/31/23 10:30 Electronically Signed by: Jodie Michel 02/01/23 16:04 Clinical Dietitian [address] [address]
[2023-02-01 17:00] VITALS: BP 127/74; PULSE 56; RESP 17; TEMP 35.9; O2SAT 96
[2023-02-01] MEDS: cefTRIAXone 2,000 MG in SODIUM CHLORIDE 0.9% 100 ML 200 MG IV (17:27)
[2023-02-01 19:30] VITALS: BP 138/72; PULSE 59; RESP 18; TEMP 36.8; O2SAT 95
[2023-02-01 23:24] VITALS: BP 151/79; PULSE 61; RESP 17; TEMP 36.9; O2SAT 96
[2023-02-02] MEDS: OXYCODONE IR 10 MG TABLET PO (02:53)
[2023-02-02] MEDS: ACETAMINOPHEN 325 MG TABLET 650 MG PO ×2 (05:05→12:05)
[2023-02-02] MEDS: IBUPROFEN 400 MG TABLET PO ×3 (05:06→13:29)
[2023-02-02] MEDS: LACTATED RINGERS 1,000 ML 100 ML IV (06:48)
[2023-02-02 07:57] VITALS: BP 130/70; PULSE 66; RESP 18; TEMP 36.6; O2SAT 97
[2023-02-02] MEDS: ASPIRIN EC 81 MG TABLET PO (08:46)
[2023-02-02] MEDS: DOCUSATE 100 MG CAPSULE PO (08:46)
[2023-02-02] MEDS: INSULIN LISPRO 100 UNIT/ML 3ML VIAL SUBCUT (08:47)
--- NOTE | 2023-02-02 09:35 | PT-IP ANOTE ---
Pt refused to work with PT today. Reports he is to d/c this afternoon and does not want to work with PT.
--- NOTE | 2023-02-02 10:52 | P.DS_ITS ---
History of Present Illness History of Present Illness Date Patient Seen: 02/02/23 Time Patient Seen: 07:20 Chief complaint: Infected L total knee replacement Narrative: Patient is sleeping in chair this morning. He states his knee is painful, but pain medication has been working well. He notes that he has progressed well with physical therapy and would like to go home. Denies fever, chills, nausea, vomiting. Discharge Providers Provider Date of admission: 01/29/23 15:08 Discharge Date: 02/02/23 Primary care physician: Jose Adams MD Consults: 01/30/23 16:45 Consult to Anesthesiology Routine Comment: Consulting Provider: Anesthesiologist Reason for consultation: Regional block for post operative pain control 01/30/23 19:52 Consult to Dietitian, Adult Routine Comment: Reason For Exam: poor diabetic control Consult to Discharge Planning Routine Comment: PICC line and IV antibiotics x6 weeks Consult to Occupational Therapy Evaluate & Treat Comment: Physician Instructions: Evaluate and treat Consult to Physical Therapy Evaluate & Treat Comment: Physician Instructions: postop TKA protocol Discharge provider: Guerlien Dunlap PA-C Summary Hospital Course Discharge Diagnosis: Infected left total knee arthroplasty Hospital Course: Operative Date/Time/Diagnoses Date of procedure: 01/30/23 Time of procedure: 17:00 Pre-op diagnosis: 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 Chavez in June.? He did reasonably well after his revision knee arthroplasty.? He did have some problems with a slight rash.? He was then doing well until Sunday when he developed severe knee pain and he came and was evaluated in the clinic on Sunday noted to have a tense effusion.? An aspiration was suggestive of infection and he was brought to the operating room for irrigation and debridement.? His Gram stain did not show organisms his cultures are still pending.? His white count was mildly elevated but he is now developed fevers. Surgeon: Alexus Del Rio Filing Or Registry Clerk: Meng Baron Anesthesia Type: General Operative Notes Findings: Significant cloudy fluid in the knee, marked thickening of the synovium, no obvious loosening of the prosthesis, multiple intraoperative cultures sent Closure Type: primary Specimen(s): other (Multiple cultures including a mixed culture for PCR and fluid for culture and sensitivity, synovium for culture and tissue for culture a nd sensitivity and a tibial specimen from the medial aspect of the tibia) Prosthetic devices, grafts, tissues, transplants, or devices: Del Rio and Nephew Nenita BCs us to size 11 poly for a 5- 6 tibia Applied: drain(s) Estimated Blood Loss (mL): 250 Blood products transfused: none Tourniquet time (min): 57 Status at Discharge Cognitive/behavioral status at discharge: oriented Functional status at discharge: uses cane/walker Overall status at discharge: patient is progressing back to baseline Exam Vital Signs (past 8 hours): - 02/02/23 07:57 Temperature 98 F Pulse Rate 66 Respiratory Rate 18 Blood Pressure 130/70 Pulse Oximetry 97 Oxygen Flow Rate 0 Oxygen Delivery Method Room Air Oxygen Flow Rate 0 Narrative Exam Narrative: 67-year-old male resting comfortably in his chair in no apparent distress.? Kenroy dressing is clean, dry, and intact, suction is on and functioning, Ezio bandage in place over dressing.? Motor functions intact distal left lower extremity.? Sensation grossly intact to light touch. Bilateral calves soft, compressible, nontender with no palpable cords or masses. Objective Labs 01/31/23 05:00 01/29/23 21:24 [facility] Medical History Diabetes History of prosthetic unicompartmental arthroplasty of left knee (2018) HTN (hypertension) Hypothyroidism JONELLE (obstructive sleep apnea) Osteoarthritis Viral URI Surgical History H/O vasectomy Hx of arthroscopy of left knee Hx of arthroscopy of right knee Hx of colonoscopy with polypectomy Hx of hand surgery Hx of hernia repair Hx of tonsillectomy Social History household members: none lives independently: Yes Smoking Status: Former smoker alcohol intake: former Discharge Assessment & Plan Assessment and Plan Assessment: Patient is progressing as expected after incision and drainage, washout of infected left total knee arthroplasty. Plan of Treatment: Patient may continue to be weight-bearing as tolerated on the left lower extremity, okay to do range of motion exercises and work with outpatient physical therapy. Picc line placed, plan for 6 weeks of IV antibiotics (2 g IV of IV ceftriaxone Q24H) and then some continued suppression. Patient will obtain Sunday and labs weekly (CBC with differential, ESR, CRP, and CMP) and follow up with infectious disease starting next week (Dr. Jean consulted). Patient may discharge to home as safe and cleared by Physical therapy and will return for daily IV antibiotic infusions. Dr. Del Rio has previously discussed that he may fail this and require formal 2 stage revision.? We will work on progressively rehabbing him and follow his course. He will also return to orthopedic clinic for postoperative follow up in 2 weeks. Discharge Plan Discharge Plan Patient Disposition: Home Provider Discharge Comment: Discharge once set up/scheduled for IV ABX infusions Discharge orders & Medications Prescriptions: New aspirin 81 mg Tablet,Delayed Release (Dr/Ec) 81 mg PO BID Qty: 84 0RF hydroxyzine pamoate 25 mg Capsule 25 mg PO Q6H PRN (Reason: Nausea And Vomiting) Qty: 40 0RF ibuprofen 400 mg Tablet 400 mg PO Q4H Qty: 120 0RF oxycodone 5 mg Tablet 5 mg PO Q4-6H PRN (Reason: Pain, Moderate (4-6)) Qty: 40 0RF Continued metformin 500 mg Tablet 2,000 mg PO QAM amlodipine 5 mg Tablet 5 mg PO DAILY levothyroxine 200 mcg Tablet 200 mcg PO DAILY Jardiance 25 mg Tablet 25 mg PO DAILY hydrochlorothiazide 50 mg Tablet 50 mg PO DAILY acetaminophen 325 mg Tablet 650 mg PO Q6HR Qty: 250 0RF hydroxyzine pamoate 25 mg Capsule 25 mg PO Q6H Qty: 30 0RF ibuprofen 400 mg Tablet 400 mg PO Q4HR Qty: 250 0RF Discontinued oxycodone 5 mg Tablet 5 mg PO Q4H PRN (Reason: Pain, Moderate (4-6)) Qty: 40 0RF Follow up/Referrals: Eli Jean MD [Non-Staff] - (Please call to schedule follow up for next week with infectious disease specialist.) Jose Adams MD [Primary Care Provider] - Alexus Del Rio MD [Physician] - (Please call to schedule a two week follow up visit with orthopedics. ) Diet/Activity/Treatments Diet: Diet as Tolerated Activity: Weightbearing as tolerated to left knee. Cold/Heat Therapy: Ice to knee as needed. Skin/Wound/Dressing Care Report to your healthcare provider any signs of infection, such as:: chills, fever, night sweats, unusual drainage and unusual redness Dressing: Keep dressing clean, dry, and intact until follow up with Orthopedics in 2 weeks. Battery to the dressing will turn off in about 7 days. At that time you may cut the cord, but keep the bandage in place. If the bandage becomes wet from either the inside or outside please contact our office for dressing change. Visit Report/Discharge Packet Instructions: DI for Incision and Drainage of a Joint Stand Alone Forms: Patient Portal/API, Stroke Signs & Symptoms, Surgery Discharge Discharge Data Primary Care Provider: Jose Adams VTE Deep Vein Thrombosis/Pulmonary Embolism Present on Admission: No
[2023-02-02] MEDS: cefTRIAXone 2,000 MG in SODIUM CHLORIDE 0.9% 100 ML 200 MG IV (11:03)
--- NOTE | 2023-02-02 11:06 | DIET.CONS2 ---
Dietary Inpatient Consultation Note Admission Date: 01/29/2023 15:08 RD attempted to work with patient regarding DM education. Pt states he did not sleep last night and does not want to be bothered. RD to check back after lunch. Diet: 01/30/23 Dinner Carbohydrate Consistent Diet Diet Modifications: Carbohydrate level: Large (4 CHO) Reflex DM orders: Yes Nutrition Percent Meal Consumed 100% 02/01/23 18:00 Percent Meal Consumed 100% 02/01/23 09:34 Electronically Signed by: Jodie Michel 02/02/23 11:06 Clinical Dietitian [address] [address]
--- NOTE | 2023-02-02 13:36 | CM.DPNOTE ---
DC Note Patient has been discharged home w/new order for IV Ceftriaxone 2mg Q24 for at least 8 weeks, orders signed by Dr Del Rio. Dr Jean, ID at [facility], consulted and will follow these abx orders per Marivel Dunlap Patient prefers to come into [facility] for his daily infusion of this IV abx (Insurance: Medicare) so a copy of the IV abx order was provided to RN Coordinator Liliana who planned to get patient on the schedule for infusion on the acute care floor Sunday and Sunday at 1500 For Sunday infusion- Faxed a copy of the abx order with patient's demo sheet to [facility] and infusion, included the following fax numbers: [phone] Patient eager to discharge home, cleared by therapies for this plan and updated with time and place to receive his abx this Plan: Discharge home, outpatient IV abx arranged to start on the acute care floor this weekend and then continue at the infusion clinic, [facility] at , friend to transport home JW
== END 2023-02-02 13:30 | disposition home or self-care (01) | DRG 487 ==
PROVIDERS: Orthopaedic Surgery; Admitting Provider Orthopaedic Surgery; Family Provider Family Medicine; PCP Family Medicine; Referring Provider Orthopaedic Surgery; Visit Provider Orthopaedic Surgery
PROC: 0SBD0ZZ Excision of Left Knee Joint, Open Approach (ICD-10-PCS; principal; 2023-01-30 16:45)
DX: T84.54XA Infection and inflammatory reaction due to internal left knee prosthesis, initial encounter (principal); E11.9 Type 2 diabetes mellitus without complications; I10 Essential (primary) hypertension; E03.9 Hypothyroidism, unspecified; Z79.84 Long term (current) use of oral hypoglycemic drugs; Z87.891 Personal history of nicotine dependence; Z20.822 Contact with and (suspected) exposure to COVID-19
CPT/HCPCS: 36415; 36569; 80053; 82962; 83036; 84550; 85014; 85018; 85025; 85651; 86140; 87070; 87075; 87077; 87147; 87176; 87186; 87205; 87801; 89051; 97116; 97161; 97530; C9290; J0171; J0690; J0696; J1170; J1642; J1815; J2405; J2704; J3010; J3410

== ENCOUNTER → 2023-01-29 17:35 | Outpatient (ROUT) | payer MEDICARE, BC, SELFPAY ==
[2023-01-29 16:36] VITALS: BMI 31.7
[2023-01-29 18:44] LABS: Body Fluid Appearance TURBID; Body Fluid Clotted? NO CLOTS PRESENT; Body Fluid Color BROWN
[2023-01-29 18:45] LABS: Body Fluid Red Blood Cells 37473 /uL; Body Fluid Tot Nucleated Cells 146634 /uL
[2023-01-29 20:32] LABS: Mononuclear WBC Body Fluid 9 %; Polynuclear WBC Body Fluid 91 %
== END ==
PROVIDERS: Family Provider Family Medicine; PCP Family Medicine; Visit Provider Orthopaedic Surgery
DX: M25.562 Pain in left knee (principal)
CPT/HCPCS: 87070; 87075; 87077; 87147; 87186; 87205; 89051

== ENCOUNTER 2023-03-14 10:21 | Inpatient (IN) | payer MEDICARE, BC, SELFPAY ==
[2023-03-12 13:43] VITALS: BMI 32.9
[2023-03-14] VITALS (13 sets, daily range): BP systolic 116–148; BP diastolic 53–80; PULSE 59–78; RESP 11–18; TEMP 35.8–36.8; O2SAT 90–99; BMI 29.6
--- NOTE | 2023-03-14 06:00 | DI.RAD.S_ITS ---
PROCEDURE: XR KNEE LT 1TO2V INDICATIONS: TKA revision TECHNIQUE: 2 view(s) of the knee acquired. COMPARISON: [facility], CR, XR KNEE LT 1TO2V, 07/26/2022, 17:09. FINDINGS: Bones: Patient is status post knee surgery. There is been removal of tibial prosthetic component and widening of the tibial femoral joint space. There is likely increased amount of cement underlying the distal femoral component. Hardware components are in expected positions. Visualized bony structures are intact. Soft tissues: Overlying postoperative changes are noted. Stable dystrophic calcifications medial to the joint line. External fixation device and skin lidia present. There is expected intra-articular gas. IMPRESSION: 1. Postsurgical changes of knee arthroplasty revision. Dictated by: Katy Sandy M.D. on 03/14/2023 at 17:59 Approved by: Katy Sandy M.D. on 03/14/2023 at 18:02
[2023-03-14] MEDS: CELECOXIB 200 MG CAPSULE PO (11:05)
[2023-03-14] MEDS: ACETAMINOPHEN 325 MG TABLET 975 MG PO (11:05)
[2023-03-14] MEDS: PREGABALIN 75 MG CAPSULE PO (11:05)
--- NOTE | 2023-03-14 13:24 | PM.PREOP ---
Pre-operative Note Interval Note History & Physical reviewed/Exam performed by Physician: Yes Changes to H&P: No
--- NOTE | 2023-03-14 13:25 | PM.OP.1 ---
Operative Date/Time/Diagnoses Date of procedure: 03/14/23 Time of procedure: 13:45 Pre-op diagnosis: infected left total knee arthroplasty Post-op diagnosis: same Procedure & Clinicians Procedure: Left total knee revision with removal of total knee arthroplasty and placement of an antibiotic spacer for infected total knee arthroplasty failed polyethylene exchange and I and D Same procedure as scheduled: Yes Indications: This is a 67-year-old gentleman who has a history of right total knee arthroplasty pain he was admitted with sepsis previously and underwent an irrigation and debridement polyethylene exchange. He is failing IV antibiotics and he is returns to the operating room for irrigation and debridement placement of an antibiotic spacer for plan two-stage revision. Surgeon: Alexus Del Rio [place] Stitcher: Meng Baron Anesthesia Type: General Operative Notes Findings: Significant synovitis, marked thickening of the synovium, some evidence of loosening Closure Type: primary Specimen(s): other (PCR and cultures) Prosthetic devices, grafts, tissues, transplants, or devices: Del Rio and nephew legion size 6 femur, 15 mm polyethylene dished, antibiotic cement with tobramycin and vancomycin for antibiotic spacer and coating of the components Estimated Blood Loss (mL): 350 Blood products transfused: none Tourniquet time (min): 130 Procedure in detail: The patient was seen in the pre-operative area, where the patient identified the left knee as the operative site and this was marked with my initials. The patient received pre-operative antibiotics, and was taken to the operating room and placed on the operative table in the supine position. After satisfactory anesthesia, a full time paramedic out was performed. The left leg was encircled with a tourniquet about the proximal thigh, and the leg was prepared from the toes to the tourniquet with ChloroPrep in the usual fashion and draped through sterile drapes. The leg was elevated and exsanguinated with Eschmark bandage and the tourniquet inflated to [250] mmHg pressure. The knee was approached through an approximately 24 cm incision centered over the patella and carried into the knee through a medial parapatellar arthrotomy. There was marked thickening of the synovium. We held the antibiotics initially and sent culture and sensitivity of the synovium as well as PCR and culture and sensitivity of tissue in the notch and fluid. IV antibiotics were administered including vancomycin and Ancef 2 g. The patella was removed and synovectomy was performed. We did a fairly extensive synovectomy and removed any tissue which appeared to be infected. Combination of a tPA S as well as multiple osteotomes were used to meticulously freed the distal femur from the underlying bone. It was removed with minimal bone loss. And meticulously dissected around completely around the component and then used the TBS an osteotomes and sequentially freed both the medial and lateral aspect of the component and then eventually tamped off the component. Polyethylene was removed prior to that. Saw was then used to meticulously free the tibial component from the underlying bone. I used a combination of tPA as large multiple stacked osteotomes and multiple osteotomes to meticulously remove the component. Minimal bone loss was noted. Next attention was directed at removing the cement. Used a combination of osteotomes as well as splitters the drill in the reverse backbiting curette to carefully strip any residual cement from the bone. Cut back to good bleeding bone. A drill was used to remove the residual cement around the patella. We did a final check for any residual hypertrophied synovium or residual cement or abnormal appearing infectious tissue. We then meticulously irrigated the knee with multiple L of pulse lavage. The tourniquet was deflated and hemostasis was achieved. A sterile lap was placed in the knee. A PA was used throughout the procedure and was essential for retraction an intraoperative positioning as well as safe implantation of the components. Next the patient was redraped and prepped and we had an entire new instrument set up and back table. The tourniquet was reinflated. We did leave the tourniquet down for about 30 minutes. The knee was re-irrigated and the bone was carefully dried. The posterior capsule was injected with part of a mixture of 60 ml 0.25% Marcaine mixed with 20 ml Exparel for post operative pain control. The remainder of this mixture was injected into the capsule and subcutaneous tissues during cement curing. A trial reduction was done with the tibial and femoral components were then placed and the knee placed through a range of motion. Range of motion was [0-120], with good stability throughout the range. The trials were then removed. The bone was prepared with pulsatile lavage, and dried with a sponge. Cement was applied and the final prosthetics placed. Excess cement was removed during and after cement curing. A brief Betadine soak was performed. After confirming there was no extruded cement posteriorly. The knee was copiously irrigated and the tourniquet deflated. Hemostasis was obtained with the [Aquamantys system]. The capsule was closed with interrupted PDS suture. The subcutaneous layer was closed with PDS sutures, and the skin with skin lidia. A nancy dressing was applied and the patient was taken to recovery having tolerated the procedure well. Complications: none Post-operative Condition: stable Disposition: Acute Care Plan for aftercare: IV antibiotic ceftriaxone 2 g a day to also be coordinated with Infectious Disease, weight-bearing as tolerated on the left lower extremity. Knee range of motion brace to provide additional support start initially at 0-45, okay to advance to 90? of flexion if needed for ambulation. Continue IV antibiotics for at least 6 weeks postoperatively. Check cultures to make sure that it is no growth after the patient has been off antibiotics and hopefully cured of his infection prior to reimplantation of components.
[2023-03-14] MEDS: TRANEXAMIC ACID 1,000 MG VIAL 2000 MG INJ ×2 (13:40→16:45)
[2023-03-14] MEDS: CEFAZOLIN 2 GM/100 ML PREMIX 100 ML IV (14:35)
[2023-03-14] MEDS: BUPIVACAINE 0.25% (PF) 60 ML, EPINEPHrine 0.3 MG INJ (14:35)
[2023-03-14] MEDS: BUPIVACAINE LIPOSOME 266 MG/20 ML VIAL INJ (14:37)
[2023-03-14] MEDS: VANCOMYCIN 1,000 MG/200 ML PIGGYBACK 200 MG IV (14:48)
[2023-03-14] MEDS: VANCOMYCIN 1,000 MG VIAL 2000 MG TOP (16:34)
[2023-03-14] MEDS: TOBRAMYCIN 1.2 GM VIAL 2.4 GM INTRA-ARTI (16:43)
--- NOTE | 2023-03-14 19:00 | SUR.PHASEI ---
pt transfered to room 225 in bed on room air with 2 belongings bags, alert, oriented. SBAR report to Tico RN. O2 sat on room air on arrival 98%
[2023-03-14] MEDS: cefTRIAXone 2,000 MG in SODIUM CHLORIDE 0.9% 100 ML 200 MG IV (19:07)
[2023-03-14] MEDS: IBUPROFEN 400 MG TABLET PO ×2 (19:07→22:37)
[2023-03-14] MEDS: ACETAMINOPHEN 325 MG TABLET 650 MG PO (19:10)
[2023-03-14] MEDS: OXYCODONE IR 5 MG TABLET PO (19:15)
[2023-03-14 20:50] LABS: Glucose 184 mg/dL (80-110)
[2023-03-14] MEDS: DOCUSATE 100 MG CAPSULE PO (20:50)
[2023-03-14] MEDS: ASPIRIN EC 81 MG TABLET PO (20:50)
[2023-03-14] MEDS: HYDROMORPHONE 0.5 MG INJ IV (21:04)
[2023-03-14] MEDS: INSULIN LISPRO 100 UNIT/ML 3ML VIAL SUBCUT (21:16)
[2023-03-14] MEDS: OXYCODONE IR 10 MG TABLET PO (22:37)
[2023-03-15] VITALS: BP 122/70; PULSE 65; RESP 18; TEMP 36.5; O2SAT 97
[2023-03-15] MEDS: ACETAMINOPHEN 325 MG TABLET 650 MG PO ×4 (00:05→18:15)
[2023-03-15] MEDS: LACTATED RINGERS 1,000 ML 100 ML IV (00:05)
[2023-03-15] MEDS: OXYCODONE IR 10 MG TABLET PO ×7 (01:58→20:59)
[2023-03-15] MEDS: IBUPROFEN 400 MG TABLET PO ×6 (01:58→22:54)
[2023-03-15 04:00] VITALS: BP 110/61; PULSE 74; RESP 17; TEMP 36.2; O2SAT 94
[2023-03-15] MEDS: LEVOTHYROXINE 100 MCG TABLET 200 MCG PO (05:02)
[2023-03-15 05:24] LABS: Hematocrit 31.7 % (41-53); Hemoglobin 10.6 g/dL (13.5-17.5)
[2023-03-15] MEDS: INSULIN LISPRO 100 UNIT/ML 3ML VIAL SUBCUT ×3 (07:48→17:04)
[2023-03-15 08:17] VITALS: BP 100/56; PULSE 61; RESP 18; TEMP 36.4; O2SAT 97
[2023-03-15 09:15] VITALS: BP 113/64
[2023-03-15] MEDS: hydroCHLOROthiazide 25 MG TABLET 50 MG PO (09:38)
[2023-03-15] MEDS: ASPIRIN EC 81 MG TABLET PO ×2 (09:38→21:00)
[2023-03-15] MEDS: METFORMIN HCL 500 MG TABLET 2000 MG PO (09:38)
[2023-03-15] MEDS: DOCUSATE 100 MG CAPSULE PO ×2 (09:39→20:59)
[2023-03-15] MEDS: AMLODIPINE 5 MG TABLET PO (09:39)
--- NOTE | 2023-03-15 10:03 | PM.PNPO.1 ---
Subjective Subjective Date Patient Seen: 03/15/23 Time Patient Seen: 10:03 Interval history: Delroy is sitting up in bed, comfortable but does c/o knee pain. Has not been OOB yet. Eating and voiding without difficulty. Exam Vital Signs (past 8 hours): - 03/15/23 04:00 03/15/23 08:17 Temperature 97.1 F L 97.5 F L Pulse Rate 74 61 Respiratory Rate 17 18 Blood Pressure 110/61 100/56 L Pulse Oximetry 94 97 Oxygen Flow Rate 0 0 Oxygen Delivery Method Room Air Oxygen Flow Rate 0 Narrative Exam Narrative: 5/5 strength in DF, PF, EHL on left. OMAR bandage CDI; CHRISTIAN functioning. Knee immobilizer in place. Calf soft, compressible, nontender and without palpable cords or masses. Glucose was 356 last night, but down to 166 this AM. Intraoperative culture results pending. Objective Labs 03/15/23 04:55 03/14/23 20:20 Labs: Laboratory Results - last 24 hr 03/14/23 03/15/23 20:20 04:55 Hgb 10.6 L Hct 31.7 L Glucose 184 H PFSH Medical History (Updated 03/15/23 @ 11:44 by Lisa Al PA-C) Diabetes History of prosthetic unicompartmental arthroplasty of left knee (2018) HTN (hypertension) Hypothyroidism JONELLE (obstructive sleep apnea) Osteoarthritis Viral URI Surgical History (Updated 03/12/23 @ 14:15 by Faith Edmonds RN) H/O vasectomy Hx of arthroscopy of left knee Hx of arthroscopy of right knee Hx of colonoscopy with polypectomy Hx of hand surgery Hx of hernia repair Hx of left knee surgery (07/26/22) Hx of left knee surgery (01/29/23) Hx of tonsillectomy Status post PICC central line placement Social History household members: none lives independently: Yes Smoking Status: Former smoker alcohol intake: former Assessment & Plan Post-op Assessment and plan (1) Infection of total left knee replacement: Assessment and Plan narrative: WBAT to LLE. PT to eval and treat. Keep knee brace at 0-45, but can change to allow flexion up to 90 degrees if needed to walk. ASA BID and SCDs for VTE prophylaxis. Ceftriaxone 2g IV daily x 6 weeks; pt has PICC line as he was on home IV abx prior to surgery. Discharge dependent on progress w/ PT; likely in 1-2 days. (2) Poorly controlled diabetes mellitus: Assessment and Plan narrative: Continue metformin, Jardiance, SSI. Postoperative Procedures: Procedures Operation Date: 03/14/23 13:00 Actual Procedure Side Surgeon p Removal Prosthesis Knee, placement of antibiotic spacer w. temporary knee replacement and Irrigation and Debridement Left Alexus Del Rio MD Postoperative day: 1
--- NOTE | 2023-03-15 11:48 | PT.IIE ---
Current Diagnoses Type 2 diabetes mellitus with hyperglycemia (03/14/23) Infection and inflammatory reaction due to internal left knee prosthesis, initial encounter (03/14/23) Surgery Performed Operation Date: 03/14/23 13:00 Actual Procedures p Removal Prosthesis Knee, placement of antibiotic spacer w. temporary knee replacement and Irrigation and Debridement(Left) - Alexus Del Rio MD Surgical History (Last Updated 03/12/23 @ 14:15 by Faith Edmonds RN) H/O vasectomy Hx of arthroscopy of left knee Hx of arthroscopy of right knee Hx of colonoscopy with polypectomy Hx of hand surgery Hx of hernia repair Hx of left knee surgery (07/26/22) Hx of left knee surgery (01/29/23) Hx of tonsillectomy Status post PICC central line placement Medical History (Last Reviewed 02/02/23 @ 10:57 by Guerline Dunlap PA-C) Diabetes History of prosthetic unicompartmental arthroplasty of left knee (2018) HTN (hypertension) Hypothyroidism JONELLE (obstructive sleep apnea) Osteoarthritis Viral URI Physical Therapy Inpatient Evaluation/Re-Eval M1 PT/OT-IP Prior Functional Status Start: 03/15/23 14:36 Freq: NEEDED Status: Active Protocol: Document 03/15/23 11:48 AB (Rec: 03/15/23 14:55 AB [id number]) Medical Review Prior Functional Status Medical History Reviewed Yes Communication able to make needs known; decrease hearing on L ear Mobility and Gait pt statd that he is modified independent with all mobilities and ambulation using SPC Social History Household Members none Living Arrangements House Number of Floors (Floors) Two Floors Number of Stairs To Enter/Railing? pt has 15 steps L rail descending to the basement but stated that he goes down to let his dogs out but has friends who can take care of his dogs for now and does not need to go down the steps has 5 steps wide bilateral rails to enter (can only hold on to one rail at a time) Home Environment Standard Height Toilet,Tub/ Shower Doors Home Equipment Front Wheel Walker,Straight Cane,Hand Held Shower,Grab Bars In Shower Additional Social History Comment pt plans to sleep on his recliner M2 PT-IP Current Condition Start: 03/15/23 14:36 Freq: NEEDED Status: Active Protocol: Document 03/15/23 11:48 AB (Rec: 03/15/23 14:55 AB [email or web address]) Physical Therapy Current Condition Current Condition Evaluation Date 03/15/23 Treatment Diagnosis s/p L TKA revision with spaces ; difficulty in walking Onset Date 03/14/23 M3 PT-IP Subjective Start: 03/15/23 14:36 Freq: NEEDED Status: Active Protocol: Document 03/15/23 11:48 AB (Rec: 03/15/23 14:55 AB [email or web address]) Subjective Physical Therapy Visit Type Type Initial Evaluation Visit Start Time 11:48 Visit Stop Time 12:41 Total Visit Minutes 53 Number of BUILDING SERVICES SUPERVISOR Visits 0 Physical Therapy Visit Comments Patient Comments agreeable move but stated that he will stop once he feels that pain on LLE is too much; stated that he will not try to move unless he needs to Therapy Pain Assessment Pain When Pain Assessed At Rest Pain Present Pain Present Pain Reported Location left knee Intensity 5 Scale Used increases with mobility Pain Management Techniques Distraction,Modification of Treatment,Re-positioning, Timing of Activity with Medications M4 PT-IP Mobility and Gait Start: 03/15/23 14:36 Freq: NEEDED Status: Active Protocol: Document 03/15/23 11:48 AB (Rec: 03/15/23 14:55 AB [id number]) PT-Bed Mobility Assessment Supine to Sit Supine to Sit Contact Guard Assistance,Head of Bed Elevated,Bedrails PT-Transfer Assessment Sit to and From Stand Sit to and from Stand Minimal Assistance,1 Person Assistance,Use of Upper Extremities Equipment Transfer Assistive Device Gait Belt,Front Wheeled Walker Orthotic/Prosthetic Devices or Brace: No Transfers Transfer Destination Chair Transfer Technique ambulated Transfer Ability Level of Assist Minimal Assistance,1 Person Assistance,Use of Upper Extremities Comments Mobility Comments pt supine in bed with L knee immobilizer on. L knee immobilizer 0-45 deg range. informed pt that ortho MD allowed pt to have up to 90 deg of flexion on knee immobilizer during ambulation if needed but pt wants to leave knee immobilizer on at 45 deg. pt stated that he will try to move but once he feels that he cannot handle the pain, he will stop and not move. pt completed supine to sit with HOB elevated to 35 deg and pt used bed rail to assist needing CGA. pt used RLE to assist LLE to move to EOB. pt able to sit on EOB SBA. completed sit to stand min A and cues. ambulated towards the chair using FWW min A ~ 12 ft. (+) L knee slight buckling but immolizer assisting to stabilize. presents with dragging gait with heavy UE use on the FWW. pt agreed to sit up on the chair. positioned pt on the chair. call light and table placed within reach. informed pt regarding current level of assistance and safe d /c plan. pt stated that once he is at home, he will only move is he needs to. informed pt regarding stairs climbing needed to enter the house, stated that he has friends and neighbors that can carry him to get into the house if needed. Gait Assessment Gait Gait Assistance Required: Minimum Assistance Distance (Feet) 12 Able to Maintain Weight Bearing Status Yes During Gait Assistive Devices Assistive Device Gait Belt,Front Wheeled Walker Orthotic/Prosthetic Devices or Brace: No Gait Deviations General Gait Pattern Antalgic,Decreased Stride Length,Decreased Feet Clearance,Step-to Gait Factors Limiting Gait Function Factors Limiting Gait Function Decreased Activity Tolerance, Decreased Strength,Limited Range of Motion,Pain,Poor Balance,Poor Safety Awareness PT-Balance Assessment Sitting Balance and Reactions Static Sitting Balance Ability Good Dynamic Sitting Balance Ability Good Standing Balance and Reactions Static Standing Balance Ability Fair Dynamic Standing Balance Ability Poor Device Used FWW M5 PT-IP Objective Assessments Start: 03/15/23 14:36 Freq: NEEDED Status: Active Protocol: Document 03/15/23 11:48 AB (Rec: 03/15/23 14:55 AB [id number]) Orientation Orientation/Cognition Level of Alertness Alert Orientation Name,Place,Situation Safety Awareness Decreased Safety Awareness Memory Description No Deficits Noted Gross Range of Motion Lower Extremity ROM Assessment Left Impaired Impairments L knee only able to flex up to ~ 20 deg and with c/o pain Strength Lower Extremity Strength Assessment Left Impaired Hip 3-/5 Knee 3-/5 Muscle Tone Muscle Tone WNL Yes M6 PT-IP Treatment Start: 03/15/23 14:36 Freq: NEEDED Status: Active Protocol: Document 03/15/23 11:48 AB (Rec: 03/15/23 14:55 AB [email or web address]) Physical Therapy Treatment Education Education Provided Precautions,Weight Bearing Status,Safety M7 PT-IP Assessment and Plan Start: 03/15/23 14:36 Freq: NEEDED Status: Active Protocol: Document 03/15/23 11:48 AB (Rec: 07/20/23 14:55 AB [id number]) PT Summary Assessment and Plan Potential Rehabilitation Potential Fair Status of Condition at Evaluation Evolving Summary Impairments Pain,ROM,Strength,Balance, Coordination,Sensation,Tone, Cognition,Bed Mobility, Transfers,Gait,Activity Tolerance Assessment Summary pt s/p L TKA revision with an antibiotic spacer. pt stated that the plan is for him to go back to have the knee surgery again in ~ 6 weeks. pt c/o L knee pain. pt tends to direct his own care and stated that if he thinks that he cannot handle the pain then he will stop and not move and will not move much at home and will only get up if needed. pt requiring min A with ambulation using FWW and only tolerated ~ 12 ft. pt presents with decrease LE elevation and needing heavy UE use on the FWW. pt has 5 steps with 1 rail to enter the house and is not appropriate to do stair climbing at this time. pt wants to go home and stated that he has friends that can carry him to get into the house if needed. will continue to assess progress. Goals Bed Mobility Goal Independent Transfer Goal Independent,Front Wheeled Walker Gait Goal Independent,Front Wheel Walker Gait Distance 100 Other Goals up/down 5 steps 1 rail CGA Days to Meet Goals 10 Frequency of Treatment Frequency Of Treatment Twice a Day Treatment Plan Physical Therapy Treatment Plan Bed Mobility Training,Transfer Training,Gait Training, Therapeutic Exercise,Balance Retraining,Post Op Education, Discharge Planning,Hot or Cold Pack,Neuromuscular Re-ed, Coordination Retraining,Manual Therapy Precautions Brace L knee immobilizer Weight Bearing Status Weight Bearing Status Weight Bear as Tolerated Allowed Weight Bearing Amount (enter % WBAT on LLE or #) (%) Recommendations To Nursing Amount of Assist Needed 1 Person Assist Discharge Recommendations PT Discharge Recommendations Home with 19/03 Assist Available,Home Health,SNF Rehab,Home vs SNF Transportation Needs at Discharge Private Vehicle,Wheelchair/ Cabulance
--- NOTE | 2023-03-15 13:31 | CM.DANOTE ---
Initial DCP Assessment Note Pt is a 67 yo male, resident of [place], now POD#1 from: Removal Prosthesis Knee, placement of antibiotic spacer w. temporary knee replacement and Irrigation and Debridement by Dr Del Rio PCP: Jose Adams Payer: [facility] Reviewed chart and met with patient to introduce self and role. Patient familiar to this [employer] CODER from last visit. patient lives alone, a retired reference library assistant, indp and active at baseline. Patient plans to return home w/friends to assist with higher ADLs and transportation as needed Patient aware he will require an addtl 6 weeks of IV Ceftriaxone 2g IV daily and plans to get this infusion through the [facility] center, as he has been doing since his discharge from last month Patient says he now has a brace on his knee to navigate but if he cannot drive he will get a friend to help with transport Order for IV Ceftriaxone 2g IV daily, 6 weeks will need to be faxed to [facility] upon patient's discharge. Patient can be placed on the schedule for infusion on the ACU by the RN Coordinator for upon discharge then can resume infusions in the infusion suite Sunday Following closely to assist in discharge coordination - Plan: Home w/friends, PICC in place, infusion through [facility] MICHELL Costello Discharge Planning/Care Management CM Discharge Assessment Start: 03/15/23 13:16 Freq: Status: Active Protocol: Document 03/15/23 13:16 GERI (Rec: 03/15/23 13:31 GERI [id number]) Discharge Planning Assessment Assigned Skate Maker MICHELL Lyon DPOA/Assigned Designee Name Eli Moreno, family ([employer]) Contact Information [phone] Tamiko (Daughter) Health Care Proxy Advance Directives? Yes Advance Directives on File Yes History Provided By Patient,Medical Record Comment Patient was last admitted from 6.5-6.. Prior Living Arrangements House Household Members none Type of transporation used prior to Drives own vehicle admit Independent with ADL's Yes Is patient alert and oriented? Yes Comment Home w/ongoing infusion- Ceftriaxone 2g IV daily x 6 weeks Q24 Barriers to Discharge No Comment Patient will need ongoing IV abx infusion and would like to continue going to [facility] infusion suite daily (receives infusion on the ACU Sun-Sun) Discharge Plan Home Transportation Arrangement Friend POV Additional Comment The new IV abx orders will need to be faxed to [facility] scheduling
--- NOTE | 2023-03-15 15:44 | OT.IPNOTE ---
Talked to pt regarding OT needs, home set-up, and pt pretty insistent that he will be fine at home and has plenty of help from his friends. Pt states and agreed would rather see OT tomorrow as not wanting to overdo it today. Pt agreeable to work with PT later. To check on pt tomorrow for OT eval.
--- NOTE | 2023-03-15 16:24 | PT.IPTN ---
Current Diagnoses Type 2 diabetes mellitus with hyperglycemia (03/14/23) Infection and inflammatory reaction due to internal left knee prosthesis, initial encounter (03/14/23) Surgery Performed Operation Date: 03/14/23 13:00 Actual Procedures p Removal Prosthesis Knee, placement of antibiotic spacer w. temporary knee replacement and Irrigation and Debridement(Left) - Alexus Del Rio MD Physical Therapy Treatment Note M2 PT-IP Current Condition Start: 03/15/23 14:36 Freq: NEEDED Status: Active Protocol: Document 03/15/23 11:48 AB (Rec: 03/15/23 14:55 AB [id number]) Physical Therapy Current Condition Current Condition Evaluation Date 03/15/23 Treatment Diagnosis s/p L TKA revision with spaces ; difficulty in walking Onset Date 03/14/23 M3 PT-IP Subjective Start: 03/15/23 14:36 Freq: NEEDED Status: Active Protocol: Document 03/15/23 15:56 KS (Rec: 03/15/23 16:57 KS [id number]) Subjective Physical Therapy Visit Type Type Treatment Note Visit Start Time 15:56 Visit Stop Time 16:24 Total Visit Minutes 28 Number of REAL ESTATE RENTAL AGENT Visits 1 Physical Therapy Visit Comments Patient Comments Pt agreeable but attempts to direct his own care. Therapy Pain Assessment Pain When Pain Assessed After Treatment Pain Present Pain Present Pain Reported Location left knee Scale Used not quantified Pain Management Techniques Elevation,Re-positioning, Timing of Activity with Medications M4 PT-IP Mobility and Gait Start: 03/15/23 14:36 Freq: NEEDED Status: Active Protocol: Document 03/15/23 15:56 KS (Rec: 03/15/23 16:57 KS [id number]) PT-Transfer Assessment Sit to and From Stand Sit to and from Stand Contact Guard Assistance,1 Person Assistance,Use of Upper Extremities Equipment Transfer Assistive Device Gait Belt,Front Wheeled Walker Orthotic/Prosthetic Devices or Brace: No Transfers Transfer Destination Chair Transfer Technique ambulated Transfer Ability Level of Assist Contact Guard Assistance,1 Person Assistance,Use of Upper Extremities Comments Mobility Comments Pt in chair upon arrival, needs encouragement to participate. CGA for sit<> stand w/ FWW. Pt ambulated ~40 ft in room w/ FWW and CGA w/ cues to increase WB on LLE. Pt c/o increased pain while WB and expresses he is unable to tolerate FWB and relies heavily on BUE. No LOB. Returned to chair, good use of BUE for slow descent. Pt left in chair w/ all needs in reach. Gait Assessment Gait Gait Assistance Required: Contact Guard Assist,1 Person Assist Distance (Feet) 40 Able to Maintain Weight Bearing Status Yes During Gait Assistive Devices Assistive Device Gait Belt,Front Wheeled Walker Orthotic/Prosthetic Devices or Brace: No Gait Deviations General Gait Pattern Antalgic,Decreased Stride Length,Decreased Feet Clearance,Step-to Gait Factors Limiting Gait Function Factors Limiting Gait Function Decreased Activity Tolerance, Decreased Strength,Limited Range of Motion,Pain,Poor Balance,Poor Safety Awareness Comments Gait Comments Increased knee flexion and ground clearance, no LOB. Stair Climbing Assessment Comments Stair Climbing Comments Not assessed, pt does not feel ready. States his friend may carry me inside PT-Balance Assessment Sitting Balance and Reactions Static Sitting Balance Ability Good Dynamic Sitting Balance Ability Good Standing Balance and Reactions Static Standing Balance Ability Fair Dynamic Standing Balance Ability Fair Device Used FWW M5 PT-IP Objective Assessments Start: 03/15/23 14:36 Freq: NEEDED Status: Active Protocol: Document 03/15/23 11:48 AB (Rec: 03/15/23 14:55 AB [id number]) Orientation Orientation/Cognition Level of Alertness Alert Orientation Name,Place,Situation Safety Awareness Decreased Safety Awareness Memory Description No Deficits Noted Gross Range of Motion Lower Extremity ROM Assessment Left Impaired Impairments L knee only able to flex up to ~ 20 deg and with c/o pain Strength Lower Extremity Strength Assessment Left Impaired Hip 3-/5 Knee 3-/5 Muscle Tone Muscle Tone WNL Yes M6 PT-IP Treatment Start: 03/15/23 14:36 Freq: NEEDED Status: Active Protocol: Document 03/15/23 15:56 KS (Rec: 03/15/23 16:57 KS [id number]) Physical Therapy Treatment Education Education Provided Precautions,Weight Bearing Status,Safety M7 PT-IP Assessment and Plan Start: 03/15/23 14:36 Freq: NEEDED Status: Active Protocol: Document 03/15/23 15:56 KS (Rec: 03/15/23 16:57 KS [id number]) PT Summary Assessment and Plan Potential Rehabilitation Potential Good Summary Impairments Pain,ROM,Strength,Balance, Coordination,Sensation,Tone, Cognition,Bed Mobility, Transfers,Gait,Activity Tolerance Progress Towards Goals Slow Progress due to Pain,Slow Progress due to Medical Issues,Slow Progress due to Activity Tolerance Assessment Summary Pt able to increase ambulation distance w/ less assisitance this PM. He does tend to direct his own care, but responds well to encouragement . Feels confident in going home and has a lot of support, however will need to complete stair training, increase ambulation distance, and improve WB on LLE. Will continue to assess progress. Goals Bed Mobility Goal Independent Transfer Goal Independent,Front Wheeled Walker Gait Goal Independent,Front Wheel Walker Gait Distance 100 Other Goals up/down 5 steps 1 rail CGA Days to Meet Goals 10 Frequency of Treatment Frequency Of Treatment Twice a Day Treatment Plan Physical Therapy Treatment Plan Bed Mobility Training,Transfer Training,Gait Training, Therapeutic Exercise,Balance Retraining,Post Op Education, Discharge Planning,Hot or Cold Pack,Neuromuscular Re-ed, Coordination Retraining,Manual Therapy Precautions Brace L knee immobilizer Weight Bearing Status Weight Bearing Status Weight Bear as Tolerated Allowed Weight Bearing Amount (enter % WBAT on LLE or #) (%) Recommendations To Nursing Amount of Assist Needed 1 Person Assist Discharge Recommendations PT Discharge Recommendations Home with 19/03 Assist Available,Home Health,Home vs SNF Transportation Needs at Discharge Private Vehicle,Wheelchair/ Cabulance
[2023-03-15] MEDS: polyethylene glycoL 3350 17 GM POWD.PACK PO (17:30)
[2023-03-15] MEDS: cefTRIAXone 2,000 MG in SODIUM CHLORIDE 0.9% 100 ML 200 MG IV (17:31)
[2023-03-15 22:24] VITALS: BP 119/65; PULSE 65; RESP 17; TEMP 36.8; O2SAT 98
[2023-03-15 23:26] LABS: x Labcorp Estim. Avg Glu (eAG) 226 mg/dL (.); x Labcorp Hemoglobin A1c 9.5 % (4.8-5.6)
[2023-03-16] MEDS: ACETAMINOPHEN 325 MG TABLET 650 MG PO ×4 (00:53→18:42)
[2023-03-16] MEDS: OXYCODONE IR 10 MG TABLET PO ×5 (00:54→21:21)
[2023-03-16] MEDS: LEVOTHYROXINE 100 MCG TABLET 200 MCG PO (06:34)
--- NOTE | 2023-03-16 07:34 | PM.PNPO.1 ---
Subjective Subjective Date Patient Seen: 03/16/23 Time Patient Seen: 07:35 Interval history: Pt sitting up in bed, c/o significantly worse left leg pain today. Did work w/ PT yesterday, but states it was limited d/t pain. Exam Vital Signs (past 8 hours): Oxygen Delivery Method Room Air Oxygen Flow Rate 0 Narrative Exam Narrative: 5/5 strength in hip flexors, quadriceps, hamstrings, DF, PF, EHL on left. Sensation to light touch intact throughout LLE. Calf soft, compressible, nontender. CHRISTIAN functioning, OMAR CDI. Knee brace appropriately positioned. Glucose has hovered around 200. Objective Labs 03/15/23 04:55 03/14/23 20:20 Labs: Laboratory Results - last 24 hr 03/14/23 20:20 Hgb A1c (Ref Lab) 9.5 H Estim Average Glucose 226 PFS Medical History (Updated 03/15/23 @ 11:44 by Lisa Al PA-C) Diabetes History of prosthetic unicompartmental arthroplasty of left knee (2018) HTN (hypertension) Hypothyroidism JONELLE (obstructive sleep apnea) Osteoarthritis Viral URI Surgical History (Updated 03/12/23 @ 14:15 by Faith Edmonds RN) H/O vasectomy Hx of arthroscopy of left knee Hx of arthroscopy of right knee Hx of colonoscopy with polypectomy Hx of hand surgery Hx of hernia repair Hx of left knee surgery (07/26/22) Hx of left knee surgery (01/29/23) Hx of tonsillectomy Status post PICC central line placement Social History household members: none lives independently: Yes Smoking Status: Former smoker alcohol intake: former Assessment & Plan Post-op Assessment and plan (1) Infection of total left knee replacement: Assessment and Plan narrative: Slow progress w/ PT d/t pain. He is typically rx'd oxycodone/APAP 5/325, 6/day by his PCP, Dr Ray, so will make sure he is receiving baseline pain control. Plan on d/c home tomorrow. Hard rx for IV abx in pts chart. WBAT to LLE.? Keep knee brace at 0-45, but can change to allow flexion up to 90 degrees if needed to walk.? ASA BID and SCDs for VTE prophylaxis.? Ceftriaxone 2g IV daily x 6 weeks; pt has PICC line as he was on home IV abx prior to surgery.? (2) Poorly controlled diabetes mellitus: Assessment and Plan narrative: Continue home meds as well as SSI. Postoperative Procedures: Procedures Operation Date: 03/14/23 13:00 Actual Procedure Side Surgeon p Removal Prosthesis Knee, placement of antibiotic spacer w. temporary knee replacement and Irrigation and Debridement Left Alexus Del Rio MD Postoperative day: 2
[2023-03-16] MEDS: INSULIN LISPRO 100 UNIT/ML 3ML VIAL SUBCUT ×3 (08:47→17:27)
[2023-03-16 09:00] VITALS: BP 129/69; PULSE 60; RESP 17; TEMP 36.2; O2SAT 96
[2023-03-16] MEDS: METFORMIN HCL 500 MG TABLET 2000 MG PO (09:32)
[2023-03-16] MEDS: hydroCHLOROthiazide 25 MG TABLET 50 MG PO (09:32)
[2023-03-16] MEDS: ASPIRIN EC 81 MG TABLET PO ×2 (09:33→21:20)
[2023-03-16] MEDS: IBUPROFEN 400 MG TABLET PO ×4 (09:33→21:20)
[2023-03-16] MEDS: DOCUSATE 100 MG CAPSULE PO ×2 (09:33→21:21)
[2023-03-16] MEDS: AMLODIPINE 5 MG TABLET PO (09:33)
--- NOTE | 2023-03-16 10:05 | PT.IPTN ---
Current Diagnoses Type 2 diabetes mellitus with hyperglycemia (03/14/23) Infection and inflammatory reaction due to internal left knee prosthesis, initial encounter (03/14/23) Surgery Performed Operation Date: 03/14/23 13:00 Actual Procedures p Removal Prosthesis Knee, placement of antibiotic spacer w. temporary knee replacement and Irrigation and Debridement(Left) - Alexus Del Rio MD Physical Therapy Treatment Note M2 PT-IP Current Condition Start: 03/15/23 14:36 Freq: NEEDED Status: Active Protocol: Document 03/15/23 11:48 AB (Rec: 03/15/23 14:55 AB [id number]) Physical Therapy Current Condition Current Condition Evaluation Date 03/15/23 Treatment Diagnosis s/p L TKA revision with spaces ; difficulty in walking Onset Date 03/14/23 M3 PT-IP Subjective Start: 03/15/23 14:36 Freq: NEEDED Status: Active Protocol: Document 03/16/23 11:03 TS (Rec: 03/16/23 11:16 TS [email or web address]) Subjective Physical Therapy Visit Type Type Treatment Note Visit Start Time 10:05 Visit Stop Time 10:30 Total Visit Minutes 25 Number of LANDFILL GRADER Visits 2 Physical Therapy Visit Comments Patient Comments Pt continues to report he wants to move when he wants to move and if it is too painful he won't do it. After some motivation to work with PT was agreeable. Therapy Pain Assessment Pain When Pain Assessed After Treatment Pain Present Pain Present Pain Reported Location left knee Intensity 8 Scale Used Numeric (0 - 10) Description Burning Pain Management Techniques Elevation,Re-positioning, Timing of Activity with Medications M4 PT-IP Mobility and Gait Start: 03/15/23 14:36 Freq: NEEDED Status: Active Protocol: Document 03/16/23 11:03 TS (Rec: 03/16/23 11:16 TS [id number]) PT-Bed Mobility Assessment Supine to Sit Supine to Sit Standby Assistance,Head of Bed Elevated,Bedrails Scooting Scooting to Edge of Bed Standby Assistance PT-Transfer Assessment Sit to and From Stand Sit to and from Stand Standby Assistance,1 Person Assistance,Use of Upper Extremities Equipment Transfer Assistive Device Gait Belt,Front Wheeled Walker Orthotic/Prosthetic Devices or Brace: No Comments Mobility Comments Supine to sit SBA, slow to move LLE to EOB. He performed sit to stand SBA with FWW, no posterior leaning or LOB. He ambulated ~20' in room SBA, no buckling or LOB. Pt stood at sink SBA with no AD for cleaning of teeth. Stand to sit in chair SBA, pt demonstrates carryover of sequencing. Pt was left in chair with call light nearby, all needs met. Gait Assessment Gait Gait Assistance Required: Standby Assistance,1 Person Assist Distance (Feet) 20 Able to Maintain Weight Bearing Status Yes During Gait Assistive Devices Assistive Device Gait Belt,Front Wheeled Walker Orthotic/Prosthetic Devices or Brace: No Gait Deviations General Gait Pattern Antalgic,Decreased Stride Length,Decreased Feet Clearance,Step-to Gait Factors Limiting Gait Function Factors Limiting Gait Function Decreased Activity Tolerance, Decreased Strength,Limited Range of Motion,Pain,Poor Balance,Poor Safety Awareness Comments Gait Comments See mobility comments. Stair Climbing Assessment Comments Stair Climbing Comments Pt agreed to perform stairs this afternoon. PT-Balance Assessment Sitting Balance and Reactions Static Sitting Balance Ability Good Dynamic Sitting Balance Ability Good Standing Balance and Reactions Static Standing Balance Ability Fair Dynamic Standing Balance Ability Fair Device Used FWW M5 PT-IP Objective Assessments Start: 03/15/23 14:36 Freq: NEEDED Status: Active Protocol: Document 03/15/23 11:48 AB (Rec: 03/15/23 14:55 AB [id number]) Orientation Orientation/Cognition Level of Alertness Alert Orientation Name,Place,Situation Safety Awareness Decreased Safety Awareness Memory Description No Deficits Noted Gross Range of Motion Lower Extremity ROM Assessment Left Impaired Impairments L knee only able to flex up to ~ 20 deg and with c/o pain Strength Lower Extremity Strength Assessment Left Impaired Hip 3-/5 Knee 3-/5 Muscle Tone Muscle Tone WNL Yes M6 PT-IP Treatment Start: 03/15/23 14:36 Freq: NEEDED Status: Active Protocol: Document 03/16/23 11:03 TS (Rec: 03/16/23 11:16 TS [id number]) Physical Therapy Treatment Education Education Provided Precautions,Weight Bearing Status,Safety M7 PT-IP Assessment and Plan Start: 03/15/23 14:36 Freq: NEEDED Status: Active Protocol: Document 03/16/23 11:03 TS (Rec: 03/16/23 11:16 TS [id number]) PT Summary Assessment and Plan Potential Rehabilitation Potential Good Summary Impairments Pain,ROM,Strength,Balance, Coordination,Sensation,Tone, Cognition,Bed Mobility, Transfers,Gait,Activity Tolerance Progress Towards Goals Progressing Toward Goals Assessment Summary Pt is SBA for sitting up to EOB, is slow to move LLE. He performed sit to stand x1 SBA with FWW and ambulated ~20 SBA w/FWW. Pt does require encouragement to participate in PT and likes to mobilize when he wants to. He continues to report he has a lot of help at home and is confident in his abilities. Pt agreeable to perform stairs this afternoon. Goals Bed Mobility Goal Independent Transfer Goal Independent,Front Wheeled Walker Gait Goal Independent,Front Wheel Walker Gait Distance 100 Other Goals up/down 5 steps 1 rail CGA Days to Meet Goals 10 Frequency of Treatment Frequency Of Treatment Twice a Day Treatment Plan Physical Therapy Treatment Plan Bed Mobility Training,Transfer Training,Gait Training, Therapeutic Exercise,Balance Retraining,Post Op Education, Discharge Planning,Hot or Cold Pack,Neuromuscular Re-ed, Coordination Retraining,Manual Therapy Precautions Brace L knee immobilizer Weight Bearing Status Weight Bearing Status Weight Bear as Tolerated Allowed Weight Bearing Amount (enter % WBAT on LLE or #) (%) Recommendations To Nursing Amount of Assist Needed 1 Person Assist Discharge Recommendations PT Discharge Recommendations Home with 19/03 Assist Available,Home Health,Home vs SNF Transportation Needs at Discharge Private Vehicle,Wheelchair/ Cabulance
--- NOTE | 2023-03-16 10:34 | OT.IP.EVAL ---
Current Diagnoses Type 2 diabetes mellitus with hyperglycemia (03/14/23) Infection and inflammatory reaction due to internal left knee prosthesis, initial encounter (03/14/23) Surgery Performed Operation Date: 03/14/23 13:00 Actual Procedures p Removal Prosthesis Knee, placement of antibiotic spacer w. temporary knee replacement and Irrigation and Debridement(Left) - Alexus Del Rio MD Past Medical History (Last Reviewed 02/02/23 @ 10:57 by Guerline Dunlap PA-C) Diabetes History of prosthetic unicompartmental arthroplasty of left knee (2018) HTN (hypertension) Hypothyroidism JONELLE (obstructive sleep apnea) Osteoarthritis Viral URI Surgical History (Last Updated 03/12/23 @ 14:15 by Faith Edmonds RN) H/O vasectomy Hx of arthroscopy of left knee Hx of arthroscopy of right knee Hx of colonoscopy with polypectomy Hx of hand surgery Hx of hernia repair Hx of left knee surgery (07/26/22) Hx of left knee surgery (01/29/23) Hx of tonsillectomy Status post PICC central line placement Occupational Therapy Inpatient Evaluation/Re-Eval M1 PT/OT-IP Prior Functional Status Start: 03/15/23 14:36 Freq: NEEDED Status: Active Protocol: Document 03/16/23 10:43 CGR (Rec: 03/16/23 11:21 CGR [id number]) Medical Review Prior Functional Status Medical History Reviewed Yes Communication able to make needs known; 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 pt has 15 steps L rail descending to the basement but stated that he goes down to let his dogs out but has friends who can take care of his dogs for now and does not need to go down the steps has 5 steps wide bilateral rails to enter (can only hold on to one rail at a time) Home Environment Standard Height Toilet,Tub/ Shower Doors Home Equipment Front Wheel Walker,Straight Cane,Hand Held Shower,Grab Bars In Shower Additional Social History Comment pt plans to sleep on his recliner M2 OT-IP Current Condition Start: 03/15/23 15:43 Freq: Status: Active Protocol: Document 03/16/23 10:43 CGR (Rec: 03/16/23 11:21 CGR [id number]) Occupational Therapy Current Condition Current Condition Evaluation Date 03/16/23 Treatment Diagnosis Infected L CELESTE revision with spacer Diagnosis Onset Date 03/14/23 Weight Bearing Status Weight Bearing Status Weight Bear as Tolerated M3 OT- IP Subjective and Pain Start: 03/15/23 15:43 Freq: Status: Active Protocol: Document 03/16/23 10:43 CGR (Rec: 03/16/23 11:21 CGR [id number]) OT- Subjective Occupational Therapy Visit Type Type Initial Evaluation Visit Start Time 10:10 Visit Stop Time 10:34 Total Visit Minutes 24 Notes cotreat with P.T. Occupational Therapy Visit Comments Patient Comments I just have to do everything my own way in my own time. OT Pain Assessment Pain When Pain Assessed At Rest Pain Present Pain Present Pain Reported Location left knee Intensity 8 Scale Used Numeric (0 - 10) Management Techniques Distraction,Modification of Treatment,Re-positioning, Timing of Activity with Medications M4 OT- IP ADL's Start: 03/15/23 15:43 Freq: Status: Active Protocol: Document 03/16/23 10:43 CGR (Rec: 03/16/23 11:21 CGR [id number]) OT [id number] Comments OT Self-Feeding Comments not meal time OT ADL-Grooming General Evaluation Grooming Ability Independent Areas Needing Assistance Combing/Brushing Hair,Face Washing Comments OT Grooming Comments standing at sink OT ADL-Oral Care General Eval Oral Care Ability Standby Assistance Areas of Assistance Brushing Teeth,Retrieving/Set- Up of Items Comments Oral Care Comments standing at sik OT ADL-Dressing General Eval Lower Body Dressing Ability Standby Assistance Areas Needing Assistance Socks Comments OT Dressing Comments Pt demonstrates ability to reach feet and ambulates from EOB to chair without socks. Pt educated on safety of sock use and declines stating they are too warm. OT ADL-Toileting Comments OT Toileting Comments not performed OT ADL-Bathing Comments OT Bathing Comments not performed M5 OT- IP IADL's Start: 03/15/23 15:43 Freq: Status: Active Protocol: Document 03/16/23 10:43 CGR (Rec: 03/16/23 11:21 CGR [id number]) OT-Instrumental Activities of Daily Living Deficits IADL Deficits Identified No Deficits Home Safety Awareness Awareness of Need for Assistance at Home Good Awareness Ability to Problem Solve Emergency Able to Problem Solve Situations Medication Management Medication Management No Deficits Identified Money Management Money Management No Deficits Identified Meal Preparation Meal Preparation No Deficits Identified Geoduck Diver Geoduck Diver No Deficits Identified Driving Driving Comments Pt states he can drive but that he also has friends that will help him. M6 OT- IP Functional Cognition Start: 03/15/23 15:43 Freq: Status: Active Protocol: Document 03/16/23 10:43 CGR (Rec: 03/16/23 11:21 CGR [id number]) Cognitive Factors Limiting Selfcare Function Cognitive Ability Level of Alertness Alert Patient Orientation Name,Age,Birthday,Month,Date, Year,Day of Week,Place, Situation Attention Span Ability Capable of Focused Attention, Capable of Sustained Attention OT- Vision and Hearing OT- Hearing Assessment OT- Hearing Assessment Left Ear Impaired OT- Vision Assessment Visual Acuity Glasses For Reading Visual Attentiveness WFL Occular Pursuits WFL Visual Convergence WFL M7 OT- IP Mobility and Balance Start: 03/15/23 15:43 Freq: Status: Active Protocol: Document 03/16/23 10:43 CGR (Rec: 03/16/23 11:21 CGR [id number]) OT- Bed Mobility Assessment Supine to Sit Supine to Sit Assist Standby Assistance,Head of Bed Elevated Scooting Scooting to Edge of Bed Standby Assistance,Head of Bed Elevated OT-Transfer Assessment Sit to and From Stand Sit to and from Stand Contact Guard Assistance Transfers Transfer Ability Contact Guard Assistance, Minimal Assistance Technique Transfer Destination Bed,Chair Transfer Technique Stand Step Pivot Devices Transfer Assistive Devices Gait Belt,Front Wheeled Walker Comments Mobility Comments Pt ambulated from far side of bed to sink and then to chair on other side of the bed. Pt needs rest breaks for pain control. OT- Balance Assessment Sitting Balance and Reactions Static Sitting Balance Ability Normal Dynamic Sitting Balance Ability Normal M8 OT- IP Objective Assessments Start: 03/15/23 15:43 Freq: Status: Active Protocol: Document 03/16/23 10:43 CGR (Rec: 03/16/23 11:21 CGR [id number]) OT Gross Range of Motion Upper Extremity Range of Motion Assessment Within Functional Limits OT Strength Upper Extremity Strength Assessment Within Functional Limits Comments Strength Comments 4+/5 OT- Coordination Assessment Upper Extremity Finger to Nose Test Within Functional Limits Finger Tapping Test Within Functional Limits OT-Muscle Tone Assessment Muscle Tone WNL Yes OT Sensation Assessment Comments Summary Comments Pt states that he has increasing feeling in his R thumb, pointer and middle finger but recent numbness to his ring and pinky since carpal tunnel sx. Edema Edema Absent M9 OT- IP Assessment and Plan Start: 03/15/23 15:43 Freq: Status: Active Protocol: Document 03/16/23 10:43 CGR (Rec: 03/16/23 11:21 CGR [id number]) OT Summary Assessment and Plan Potential Rehabilitation Potential Good Analytic Complexity at Evaluation Low Summary OT Impairments Pain,Balance,Functional Mobility,Grooming,Dressing, Toileting,Bathing,Toilet Transfers,Shower Transfers, Activity Tolerance Progress Towards Goals Slow Progress due to Pain Assessment Summary Pt presents as a low complexity evaluation s/p admit for revision of the LTHA . Pt had a spacer placed. Pt is ambulating with CGA to min a and is likely to be safe for discharge home. Recommend d/c to home with friends as support. Goals Grooming Goal Independent Dressing Goal Independent Toileting Goal Independent Bathing Goal Independent Toilet Transfer Goal Independent Shower Transfer Goal Independent Days to Meet Goals 2 Frequency of Treatment Frequency Of Treatment Once a Day Treatment Plan OT Treatment Plan ADL Training,Functional Mobility,Patient/Family Education,Discharge Planning Other Treatment Recommendations and Next shower Treatment Focus Discharge Recommendations OT Discharge Recommendations Home Home Equipment Needs front wheeled walker Transportation Needs at Discharge Private Vehicle
--- NOTE | 2023-03-16 11:26 | PC.NURSE ---
Per patient, OMAR Wrap and bandage below are to remain intact for 2 weeks until outpatient follow-up with provider.
--- NOTE | 2023-03-16 11:44 | PC.NURSE ---
Clarified with provider that pt's dressing is to remain in place for 2 week follow-up.
--- NOTE | 2023-03-16 11:47 | DIET.CONS2 ---
Dietary Inpatient Consultation Note Admission Date: 03/14/2023 10:21 Pt referred to nutrition for poorly managed DM2 with A1c 9.5 here for second revision of L total knee arthroplasty. Per chart note, pt endorses A1c generally at 10, takes Jardiance and Metformin but does not check BGs. No DM Educator available at for education. Recc pt follow up with PCP for outpatient DM education referral to support better management. Rec surgeon reiterate relationship between post-op infections and BG <200. Pt would benefit from insulin therapy on d/c and checking BGs regularly. Diet: 03/14/23 Dinner Carbohydrate Consistent Diet Diet Modifications: Carbohydrate level: Large (4 CHO) Reflex DM orders: Yes Nutrition Percent Meal Consumed 50% 03/16/23 09:00 Percent Meal Consumed 75% 03/15/23 17:58 Percent Meal Consumed 75% 03/15/23 09:15 Electronically Signed by: Jodie Michel 03/16/23 11:47 Clinical Dietitian [address] [address]
--- NOTE | 2023-03-16 12:49 | PC.NURSE ---
Spoke with provider regarding pt's concern about pain management. Provider said pt is to be medicated per current orders (oxy 10mg sked Q8h; oxy 5mg PRN Q3).
--- NOTE | 2023-03-16 13:00 | PT.IPTN ---
Current Diagnoses Type 2 diabetes mellitus with hyperglycemia (03/14/23) Infection and inflammatory reaction due to internal left knee prosthesis, initial encounter (03/14/23) Surgery Performed Operation Date: 03/14/23 13:00 Actual Procedures p Removal Prosthesis Knee, placement of antibiotic spacer w. temporary knee replacement and Irrigation and Debridement(Left) - Alexus Del Rio MD Physical Therapy Treatment Note M2 PT-IP Current Condition Start: 03/15/23 14:36 Freq: NEEDED Status: Active Protocol: Document 03/15/23 11:48 AB (Rec: 03/15/23 14:55 AB [id number]) Physical Therapy Current Condition Current Condition Evaluation Date 03/15/23 Treatment Diagnosis s/p L TKA revision with spaces ; difficulty in walking Onset Date 03/14/23 M3 PT-IP Subjective Start: 03/15/23 14:36 Freq: NEEDED Status: Active Protocol: Document 03/16/23 14:11 TS (Rec: 03/16/23 14:22 TS [id number]) Subjective Physical Therapy Visit Type Type Treatment Note Visit Start Time 13:00 Visit Stop Time 13:23 Total Visit Minutes 23 Number of [facility]IM[facility] OFFICE SUPERVISOR Visits 3 Physical Therapy Visit Comments Patient Comments Reports concerns about reducing his pain medication down to every 8 hours, agreeable to PT. Therapy Pain Assessment Pain When Pain Assessed During Mobility Pain Present Pain Present Pain Reported M4 PT-IP Mobility and Gait Start: 03/15/23 14:36 Freq: NEEDED Status: Active Protocol: Document 03/16/23 14:11 TS (Rec: 03/16/23 14:22 TS [id number]) PT-Transfer Assessment Sit to and From Stand Sit to and from Stand Standby Assistance,1 Person Assistance,Use of Upper Extremities Equipment Transfer Assistive Device Gait Belt,Front Wheeled Walker Orthotic/Prosthetic Devices or Brace: No Comments Mobility Comments Sit to stand SBA with FWW, pt demonstrates good use of BUE support on arms of cair to come into standing with L knee extended. He ambulated ~50' SBA with FWW, heavy use of UEs on FWW with decreased weight bearing on LLE. Pt was brought to stairs in w/c. He performed stairs x6 SBA, was provided cues for proper sequencing of steps. Pt was left back in chair in room, call light nearby, all needs met. Gait Assessment Gait Gait Assistance Required: Standby Assistance Distance (Feet) 50 Able to Maintain Weight Bearing Status Yes During Gait Assistive Devices Assistive Device Gait Belt,Front Wheeled Walker Orthotic/Prosthetic Devices or Brace: No Gait Deviations General Gait Pattern Antalgic,Decreased Stride Length,Decreased Feet Clearance,Step-to Gait Factors Limiting Gait Function Factors Limiting Gait Function Decreased Activity Tolerance, Decreased Strength,Limited Range of Motion,Pain,Poor Balance,Poor Safety Awareness Comments Gait Comments See mobility comments. Stair Climbing Assessment Evaluation Level of Assist On Stairs Standby Assistance Devices Stair Climbing Assistive Devices Left Railing,Right Railing Technique/Endurance Stair Climbing Direction Ascend and Descend Stair Climbing Technique Step Over Step Number of Steps Climbed 6 Comments Stair Climbing Comments See mobility comments. PT-Balance Assessment Sitting Balance and Reactions Static Sitting Balance Ability Good Dynamic Sitting Balance Ability Good Standing Balance and Reactions Static Standing Balance Ability Good Dynamic Standing Balance Ability Fair Device Used FWW M5 PT-IP Objective Assessments Start: 03/15/23 14:36 Freq: NEEDED Status: Active Protocol: Document 03/15/23 11:48 AB (Rec: 03/15/23 14:55 AB [id number]) Orientation Orientation/Cognition Level of Alertness Alert Orientation Name,Place,Situation Safety Awareness Decreased Safety Awareness Memory Description No Deficits Noted Gross Range of Motion Lower Extremity ROM Assessment Left Impaired Impairments L knee only able to flex up to ~ 20 deg and with c/o pain Strength Lower Extremity Strength Assessment Left Impaired Hip 3-/5 Knee 3-/5 Muscle Tone Muscle Tone WNL Yes M6 PT-IP Treatment Start: 03/15/23 14:36 Freq: NEEDED Status: Active Protocol: Document 03/16/23 14:11 TS (Rec: 03/16/23 14:22 [id number]) Physical Therapy Treatment Education Education Provided Precautions,Weight Bearing Status,Safety M7 PT-IP Assessment and Plan Start: 03/15/23 14:36 Freq: NEEDED Status: Active Protocol: Document 03/16/23 14:11 TS (Rec: 03/16/23 14:22 TS [id number]) PT Summary Assessment and Plan Potential Rehabilitation Potential Good Summary Progress Towards Goals Progressing Toward Goals Assessment Summary Pt performed Sit to stand x from bedside chair SBA with good carryover of technique. He ambulated ~50' SBA with heavy use of UEs on FWW and decreased weight bearing on L side, he has no buckling or LOB. He performed stairs x6 SBA with bilateral handrail assist, required some cueing for step sequencing. PT is recommending home with 24/7 suppor t and HHPT. Pt reports having a lot of people that can assist him whenever he needs. Pt has 4WW at home but would benefit from FWW. Pt feels he can use his 4WW and does not want FWW. Will trial 4WW tomorrow with pt. Goals Bed Mobility Goal Independent Transfer Goal Independent,Front Wheeled Walker Gait Goal Independent,Front Wheel Walker Gait Distance 100 Other Goals up/down 5 steps 1 rail CGA Days to Meet Goals 10 Frequency of Treatment Frequency Of Treatment Twice a Day Treatment Plan Physical Therapy Treatment Plan Bed Mobility Training,Transfer Training,Gait Training, Therapeutic Exercise,Balance Retraining,Post Op Education, Discharge Planning,Hot or Cold Pack,Neuromuscular Re-ed, Coordination Retraining,Manual Therapy Precautions Brace L knee immobilizer Weight Bearing Status Weight Bearing Status Weight Bear as Tolerated Allowed Weight Bearing Amount (enter % WBAT on LLE or #) (%) Recommendations To Nursing Amount of Assist Needed Standby Assistance Discharge Recommendations PT Discharge Recommendations Home with 24 Assist Available,Home Health Equipment Needed for Home Before Would benefit from having a Discharge FWW. Pt has 4WW at home. Transportation Needs at Discharge Private Vehicle,Wheelchair/ Cabulance
[2023-03-16] MEDS: OXYCODONE IR 5 MG TABLET PO (14:27)
[2023-03-16] MEDS: cefTRIAXone 2,000 MG in SODIUM CHLORIDE 0.9% 100 ML 200 MG IV (18:17)
[2023-03-16 19:35] VITALS: BP 126/72; PULSE 64; RESP 16; TEMP 36.2; O2SAT 96
[2023-03-17] MEDS: ACETAMINOPHEN 325 MG TABLET 650 MG PO ×2 (00:17→06:14)
[2023-03-17] MEDS: OXYCODONE IR 5 MG TABLET PO ×2 (00:18→08:21)
[2023-03-17] MEDS: OXYCODONE IR 10 MG TABLET PO (04:18)
[2023-03-17] MEDS: IBUPROFEN 400 MG TABLET PO (06:14)
[2023-03-17] MEDS: LEVOTHYROXINE 100 MCG TABLET 200 MCG PO (06:14)
[2023-03-17] MEDS: AMLODIPINE 5 MG TABLET PO (08:21)
[2023-03-17] MEDS: DOCUSATE 100 MG CAPSULE PO (08:21)
[2023-03-17] MEDS: ASPIRIN EC 81 MG TABLET PO (08:21)
[2023-03-17] MEDS: hydroCHLOROthiazide 25 MG TABLET 50 MG PO (08:22)
[2023-03-17] MEDS: METFORMIN HCL 500 MG TABLET 2000 MG PO (08:22)
--- NOTE | 2023-03-17 08:32 | PM.DS.1 ---
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 He is failing IV antibiotics and he is returns to the operating room for irrigation and debridement placement of an antibiotic spacer for plan two-stage revision. Surgeon: Alexus Del Rio Coil Machine Supervisor: Meng Baron Anesthesia Type: General Operative Notes Findings: Significant synovitis, marked thickening of the synovium, some evidence of loosening Closure Type: primary Specimen(s): other (PCR and cultures) Prosthetic devices, grafts, tissues, transplants, or devices: Delr Io and nephew legion size 6 femur, 15 mm polyethylene dished, antibiotic cement with tobramycin and vancomycin for antibiotic spacer and coating of the components Estimated Blood Loss (mL): 350 Blood products transfused: none Tourniquet time (min): 130 Discharge Providers Provider Date of admission: 03/14/23 10:21 Discharge Date: 03/17/23 Primary care physician: Jose Adams MD Consults: 03/14/23 06:00 Consult to Anesthesiology Routine Comment: Consulting Provider: Anesthesiologist Reason for consultation: Regional block for post operative pain control 03/14/23 18:22 Consult to Dietitian, Adult Routine Comment: Reason For Exam: Poor diabetic control Consult to Discharge Planning Routine Comment: Consult to Occupational Therapy Evaluate & Treat Comment: Physician Instructions: Evaluate and treat Consult to Physical Therapy Evaluate & Treat Comment: Physician Instructions: postop TKA protocol 03/14/23 19:00 Consult to Dietitian, Adult Routine Comment: lost 20lbs in last 2 months Reason For Exam: poor appetite with infection Discharge provider: Lisa Al PA-C Summary Hospital Course Discharge Diagnosis: infected left total knee arthroplasty, s/p removal of total knee arthroplasty and placement of an antibiotic spacer for infected total knee arthroplasty Hospital Course: Mr Иван's hospital course was remarkable for difficulty w/ pain control and slow progress w/ PT. On the morning of POD# 3 he was feeling better and willing to go home. He was eating and voiding without difficulty and his pain was well-controlled with oral medication. He was evaluated by PT throughout his stay and they felt he was appropriate to go home with assistance. Exam Vital Signs (past 8 hours): Oxygen Delivery Method Room Air Oxygen Flow Rate 0 Narrative Exam Narrative: 5/5 strength in DF, PF, EHL on left. Sensation to light touch intact throughout LLE. Calf soft, compressible, nontender and without palpable cords or masses. OMAR wrap CDI, CHRISTIAN functioning. Knee brace in appropriate position. Objective Labs 03/15/23 04:55 03/14/23 20:20 [facility] Medical History (Updated 03/15/23 @ 11:44 by Lisa Al PA-C) Diabetes History of prosthetic unicompartmental arthroplasty of left knee (2018) HTN (hypertension) Hypothyroidism JONELLE (obstructive sleep apnea) Osteoarthritis Viral URI Surgical History (Updated 03/12/23 @ 14:15 by Faith Edmonds RN) H/O vasectomy Hx of arthroscopy of left knee Hx of arthroscopy of right knee Hx of colonoscopy with polypectomy Hx of hand surgery Hx of hernia repair Hx of left knee surgery (07/26/22) Hx of left knee surgery (01/29/23) Hx of tonsillectomy Status post PICC central line placement Social History household members: none lives independently: Yes Smoking Status: Former smoker alcohol intake: former Discharge Assessment & Plan Assessment and Plan Assessment: infected left total knee arthroplasty, s/p removal of total knee arthroplasty and placement of an antibiotic spacer for infected total knee arthroplasty Plan of Treatment: He is typically rx'd oxycodone/APAP 5/325, 6/day by his PCP, Dr Adams. He should continue this at baseline with additional oxycodone as prescribed by our team for acute postoperative pain. WBAT to LLE.? Keep knee brace at 0-45, but can change to allow flexion up to 90 degrees if needed to walk.? ASA BID for VTE prophylaxis.? Ceftriaxone 2g IV daily x 6 weeks. Discharge Plan Discharge Plan Patient Disposition: Home Discharge orders & Medications Prescriptions: New ceftriaxone 2 gram Recon Soln 2,000 mg IV Q24H Qty: 39 0RF oxycodone 5 mg Tablet 5 mg PO Q3H PRN (Reason: Pain, Moderate (4-6)) Qty: 60 0RF docusate sodium 100 mg Capsule 100 mg PO BID PRN (Reason: constipation) Qty: 60 1RF Continued metformin 500 mg Tablet 2,000 mg PO QAM amlodipine 5 mg Tablet 5 mg PO DAILY levothyroxine 200 mcg Tablet 200 mcg PO DAILY Jardiance 25 mg Tablet 25 mg PO DAILY hydrochlorothiazide 50 mg Tablet 50 mg PO DAILY acetaminophen 325 mg Tablet 650 mg PO Q6HR Qty: 250 0RF aspirin 81 mg Tablet,Delayed Release (Dr/Ec) 81 mg PO BID Qty: 84 0RF hydroxyzine pamoate 25 mg Capsule 25 mg PO Q6H PRN (Reason: Nausea And Vomiting) Qty: 40 0RF ibuprofen 400 mg Tablet 400 mg PO Q4H Qty: 120 0RF oxycodone 5 mg Tablet 5 mg PO Q4-6H PRN (Reason: Pain, Moderate (4-6)) Qty: 40 0RF Follow up/Referrals: Jose Adams MD [Primary Care Provider] - Alexus Del Rio MD [Physician] - As previously scheduled (Follow up with Dr Del Rio on 03/26/2023 @ 1:00 pm at [facility] in [place].) Diet/Activity/Treatments Diet: Diet as Tolerated Activity: Keep brace at 0-45 degrees, but may increase to 90 degrees if needed to walk. May take off to shower and sleep. Cold/Heat Therapy: Ice to knee as needed for pain. Skin/Wound/Dressing Care Report to your healthcare provider any signs of infection, such as:: chills, fever, night sweats, unusual drainage and unusual redness Dressing: May remove OMAR wrap and shower today. Leave CHRISTIAN dressing in place until follow up in office. Batteries will in 5-7 days, and you can cut off the battery pack and dispose of it but leave the dressing on. No bathing or otherwise soaking incision. Call the office if the dressing becomes saturated inside. Visit Report/Discharge Packet Instructions: DI for Knee Replacement, DI for Prescription Opioid Use Stand Alone Forms: Patient Portal/API, Stroke Signs & Symptoms, Surgery Discharge Discharge Data Primary Care Provider: Jose Adams
[2023-03-17 09:00] VITALS: BP 102/62; PULSE 54; RESP 17; TEMP 36.6; O2SAT 99
--- NOTE | 2023-03-17 09:10 | PT.IPTN ---
Current Diagnoses Type 2 diabetes mellitus with hyperglycemia (03/14/23) Infection and inflammatory reaction due to internal left knee prosthesis, initial encounter (03/14/23) Surgery Performed Operation Date: 03/14/23 13:00 Actual Procedures p Removal Prosthesis Knee, placement of antibiotic spacer w. temporary knee replacement and Irrigation and Debridement(Left) - Alexus Del Rio MD Physical Therapy Treatment Note M2 PT-IP Current Condition Start: 03/15/23 14:36 Freq: NEEDED Status: Discharge Protocol: Document 03/15/23 11:48 AB (Rec: 03/15/23 14:55 AB [id number]) Physical Therapy Current Condition Current Condition Evaluation Date 03/15/23 Treatment Diagnosis s/p L TKA revision with spaces ; difficulty in walking Onset Date 03/14/23 M3 PT-IP Subjective Start: 03/15/23 14:36 Freq: NEEDED Status: Discharge Protocol: Document 03/17/23 10:15 TS (Rec: 03/17/23 10:25 TS [id number]) Subjective Physical Therapy Visit Type Type Treatment Note Visit Start Time 09:10 Visit Stop Time 09:36 Total Visit Minutes 26 Number of CHASER TAR Visits 4 Physical Therapy Visit Comments Patient Comments Agreeable to PT. Therapy Pain Assessment Pain When Pain Assessed During Mobility Pain Present Pain Present Denied Pain M4 PT-IP Mobility and Gait Start: 03/15/23 14:36 Freq: NEEDED Status: Discharge Protocol: Document 03/17/23 10:15 TS (Rec: 03/17/23 10:25 TS [id number]) PT-Transfer Assessment Sit to and From Stand Sit to and from Stand Standby Assistance,1 Person Assistance,Use of Upper Extremities Equipment Transfer Assistive Device Gait Belt,Front Wheeled Walker Orthotic/Prosthetic Devices or Brace: No Comments Mobility Comments Sit to stand with FWW SBA with BUE support pushing from arms of chair, demonstrates good carryover of sequencing. He ambulated w/FWW ~175' SBA with antalgic step to gait, no buckling or LOB. Pt ambulated back to room stood SBA with no AD for brushing of teeth. Pt was left back in chair with call light nearby, all needs met. Gait Assessment Gait Gait Assistance Required: Standby Assistance Distance (Feet) 175 Able to Maintain Weight Bearing Status Yes During Gait Assistive Devices Assistive Device Gait Belt,Front Wheeled Walker Orthotic/Prosthetic Devices or Brace: No Gait Deviations General Gait Pattern Antalgic,Decreased Stride Length,Decreased Feet Clearance,Step-to Gait Factors Limiting Gait Function Factors Limiting Gait Function Decreased Activity Tolerance, Decreased Strength,Limited Range of Motion,Pain,Poor Balance,Poor Safety Awareness Comments Gait Comments See mobility comments. PT-Balance Assessment Sitting Balance and Reactions Static Sitting Balance Ability Normal Dynamic Sitting Balance Ability Good Standing Balance and Reactions Static Standing Balance Ability Good Dynamic Standing Balance Ability Good Device Used FWW M5 PT-IP Objective Assessments Start: 03/15/23 14:36 Freq: NEEDED Status: Discharge Protocol: Document 03/15/23 11:48 AB (Rec: 03/15/23 14:55 AB [id number]) Orientation Orientation/Cognition Level of Alertness Alert Orientation Name,Place,Situation Safety Awareness Decreased Safety Awareness Memory Description No Deficits Noted Gross Range of Motion Lower Extremity ROM Assessment Left Impaired Impairments L knee only able to flex up to ~ 20 deg and with c/o pain Strength Lower Extremity Strength Assessment Left Impaired Hip 3-/5 Knee 3-/5 Muscle Tone Muscle Tone WNL Yes M6 PT-IP Treatment Start: 03/15/23 14:36 Freq: NEEDED Status: Discharge Protocol: Document 03/17/23 10:15 TS (Rec: 03/17/23 10:25 TS [id number]) Physical Therapy Treatment Education Education Provided Precautions,Weight Bearing Status,Safety M7 PT-IP Assessment and Plan Start: 03/15/23 14:36 Freq: NEEDED Status: Discharge Protocol: Document 03/17/23 10:15 TS (Rec: 03/17/23 10:25 TS [id number]) PT Summary Assessment and Plan Potential Rehabilitation Potential Good Summary Progress Towards Goals Progressing Toward Goals Assessment Summary Pt continues to be SBA for all mobility. He progressed his gait to ~175' SBA with FWW, continues to have a slow step to antalgic gait and has no buckling or LOB. He stood with no AD at sink for brushing of teeth with no unsteadiness. PT is recommending return home with assist and HHPT. Goals Bed Mobility Goal Independent Transfer Goal Independent,Front Wheeled Walker Gait Goal Independent,Front Wheel Walker Gait Distance 100 Other Goals up/down 5 steps 1 rail CGA Days to Meet Goals 10 Frequency of Treatment Frequency Of Treatment Twice a Day Treatment Plan Physical Therapy Treatment Plan Bed Mobility Training,Transfer Training,Gait Training, Therapeutic Exercise,Balance Retraining,Post Op Education, Discharge Planning,Hot or Cold Pack,Neuromuscular Re-ed, Coordination Retraining,Manual Therapy Precautions Brace L knee immobilizer Weight Bearing Status Weight Bearing Status Weight Bear as Tolerated Allowed Weight Bearing Amount (enter % WBAT on LLE or #) (%) Recommendations To Nursing Amount of Assist Needed 1 Person Assist Discharge Recommendations PT Discharge Recommendations Home with Assistance,Home Health Equipment Needed for Home Before Would benefit from having a Discharge FWW. Pt has 4WW at home. Transportation Needs at Discharge Private Vehicle
--- NOTE | 2023-03-17 14:46 | CM.DPNOTE ---
DC Note Patient has been discharged home w/new order for IV Ceftriaxone 2mg Q24 for 6 weeks, orders signed by Marivel Al . Dr Jean, ID at [facility], will continue to follow these abx orders Patient prefers to come into [facility] for his daily infusion of this IV abx (Insurance: Medicare) so a copy of the IV abx order was faxed to inpatient pharmacy at [phone] and discussed with RN coordinator Bianca. patient on the schedule for infusion on the acute care floor Sunday anytime after 1100 Updated patient who coordinated w/a friend to transport him home. Patient agreeable to coming in tomorrow to the ACU then to [facility] Sunday, as he had done previously For Sunday infusion- Faxed a copy of the abx order with patient's demo sheet to [facility] and infusion, included the following fax numbers: [phone], [phone] Patient eager to discharge home, cleared by therapies for this plan and updated with time and place to receive his abx this weekend Plan: Discharge home, outpatient IV abx arranged to start on the acute care floor this weekend and then continue at the infusion clinic, [facility] at , friend to transport home JW
[2023-03-18] MEDS: cefTRIAXone 2,000 MG in SODIUM CHLORIDE 0.9% 100 ML 200 MG IV (11:31)
== END 2023-03-17 10:05 | disposition home or self-care (01) | DRG 468 ==
PROVIDERS: Admitting Provider Orthopaedic Surgery; Family Provider Family Medicine; PCP Family Medicine; Referring Provider Family Medicine; Visit Provider Orthopaedic Surgery
PROC: 0SPD0JZ Removal of Synthetic Substitute from Left Knee Joint, Open Approach (ICD-10-PCS; principal; 2023-03-14 13:00)
DX: T84.54XA Infection and inflammatory reaction due to internal left knee prosthesis, initial encounter (principal); M65.9 Synovitis and tenosynovitis, unspecified; E11.65 Type 2 diabetes mellitus with hyperglycemia; T84.033A Mechanical loosening of internal left knee prosthetic joint, initial encounter; I10 Essential (primary) hypertension; E03.9 Hypothyroidism, unspecified; Z87.891 Personal history of nicotine dependence; Z79.84 Long term (current) use of oral hypoglycemic drugs
CPT/HCPCS: 36415; 73560; 80053; 82947; 82962; 83036; 85014; 85018; 85025; 85651; 86140; 87070; 87075; 87176; 87205; 87801; 96365; 97116; 97162; 97165; 97530; 97535; C1776; C1713; C9290; J0171; J0690; J0696; J1170; J1815; J2405; J2704

== ENCOUNTER → 2023-05-16 12:21 | Outpatient (CLI) | payer MEDICARE, BC, SELFPAY ==
[2023-03-14 18:54] VITALS: BMI 29.6
[2023-05-16 13:07] LABS: Add Manual Diff / Slide Review NO; Basophils Absolute Auto 100 /uL (0-100); Basophils Percent Auto 1.2 % (0-2); Eosinophils Absolute Auto 200 /uL (0-450); Eosinophils Percent Auto 2.9 % (2-4); Hemoglobin 15.3 g/dL (13.5-17.5); Lymphocytes Absolute Auto 1800 /uL (1100-4500); Lymphocytes Percent Auto 26.4 % (25-40); Mean Corpuscular HGB Conc 33.4 % (30-36); Mean Corpuscular Hemoglobin 26.8 PG (26-34); Mean Corpuscular Volume 80.3 fL (80-100); Monocytes Absolute Auto 400 /uL (0-900); Monocytes Percent Auto 5.5 % (3-14); Neutrophils Absolute Auto 4400 /uL (1500-7000); Platelet Count 288 X10^3/uL (150-400); Red Blood Cell Count 5.73 X10^6/uL (4.5-5.9); Red Cell Distribution Width 17.1 % (11.6-14.8); White Blood Cell Count 6.9 X10^3/uL (4.5-11.0)
[2023-05-16 13:28] LABS: C-Reactive Protein Quant 0.9 mg/dL (<1.0)
== END ==
PROVIDERS: Family Provider Family Medicine; PCP Family Medicine; Referring Provider Internal Medicine Infectious Disease; Visit Provider Internal Medicine Infectious Disease
DX: Z96.659 Presence of unspecified artificial knee joint (principal); T84.59XD Infection and inflammatory reaction due to other internal joint prosthesis, subsequent encounter
CPT/HCPCS: 36415; 85025; 86140

== ENCOUNTER → 2023-06-07 10:43 | Outpatient (CLI) | payer MEDICARE, BC, SELFPAY ==
[2023-03-14 18:54] VITALS: BMI 29.6
--- NOTE | 2023-06-07 | DI.ECHO.S_ITS ---
[facility]---------+ [facility] +---------+ : : [address] : : : : [id number] : : : : Phone: [phone]+ Echocardiogram Report + + :Name: MUSA HAYES Study Date: 06/07/2023 Height: 69 in : [facility] Reading[facility] Weight: 205 lb : : Gender: Male BSA: 2.1 m2 : :: 1955 Age: 68 yrs BP: 150/91 mmHg: :Reason For Study: Hypertension : :Ordering Physician: LAVERNE, : :JACINDA Butcher Performed By: Candy Mo : :Referring: JACINDA GALLOWAY : + + Interpretation Summary The left ventricle is normal in size. The left ventricular ejection fraction is normal. The ejection fraction is estimated to be 60-65%. The right ventricle is normal in size and function. No significant valvular pathology seen. The IVC is of normal diameter and collapses greater than 50% with a sniff. This suggests a low right atrial pressure of 3 mm Hg. Procedure: A two-dimensional transthoracic echocardiogram with color flow and Doppler was performed. The study quality was technically adequate. There is no prior echocardiogram noted for this patient. The patient was in normal sinus rhythm during the exam. Left Ventricle: The left ventricle is normal in size. Proximal septal thickening is noted. There is no echo evidence for significant left ventricular outflow tract obstruction. There is no thrombus. The ejection fraction is estimated to be 60-65%. The left ventricular ejection fraction is normal. There are no focal wall motion abnormalities. Diastolic parameters suggest a relaxation abnormality of the left ventricle, consistent with probable normal filling pressures. Right Ventricle: The right ventricle is normal in size and function. Atria: The left atrial size is normal. Right atrial size is normal. There is no Doppler evidence for an interatrial shunt. Mitral Valve: The mitral valve is normal. There is no mitral valve stenosis. There is trace mitral regurgitation. Aortic Valve: The aortic valve is not well visualized. The aortic valve opens well. The aortic valve is trileaflet. There is no aortic valve stenosis. No aortic regurgitation is present. Tricuspid Valve: The tricuspid valve is normal. There is trace tricuspid regurgitation. The right ventricular systolic pressure is estimated to be at least 21 mmHg based on an estimated right atrial pressure of 3 mm Hg. Pulmonic Valve: The pulmonic valve is not well visualized. There is no pulmonic valvular stenosis. There is no pulmonic valvular regurgitation. Great Vessels: The aortic root is normal size. The ascending aorta is normal in size. The pulmonary artery is normal size. The IVC is of normal diameter and collapses greater than 50% with a sniff. This suggests a low right atrial pressure of 3 mm Hg. Pericardium/ Pleura There is no pericardial effusion. There is no pleural effusion. MMode/2D Measurements & Calculations LVIDd: 5.1 cm LVOT diam: 2.0 cm LVIDs: 3.0 cm Ao root diam: 3.1 cm FS: 41.2 % asc Aorta Diam: 3.4 cm IVSd: 1.2 cm LVPWd: 0.80 cm LV cintron. diameter/BSA (cm/m^2): 2.4 LV sys. diameter/BSA (cm/m^2): 1.4 LA A2 area: 19.1 cm2 RA long axis: 5.8 cm LA A4 area: 11.0 cm2 RA area: 11.5 cm2 LA length (vol): 6.0 cm RA vol: 19.5 ml LA vol: 29.8 ml RA : 9.4 ml/m2 LA vol index: 14.3 ml/m2 RVD1 (basal): 2.5 cm LVLs ap4: 6.5 cm LVLd ap2: 7.5 cm TAPSE_phl: 2.2 cm LVLs ap2: 6.0 cm Doppler Measurements & Calculations Ao V2 max: 168.0 cm/sec LVOT Max Armando: 115.5 cm/sec Ao V2 mean: 114.5 cm/sec LV V1 max P.3 mmHg Ao max P.0 mmHg LV V1 VTI: 28.3 cm Ao mean P.5 mmHg NICOLE(I,D): 2.3 cm2 Ao V2 VTI: 38.1 cm NICOLE(V,D): 2.2 cm2 sev ratio: 0.74 NICOLE indexed to BSA (cm^2/m^2): 1.1 MV E max armando: 80.2 cm/sec TR max armando: 211.4 cm/sec MV A max armando: 79.4 cm/sec TR max P.9 mmHg MV E/A: 1.0 PA V2 max: 104.0 cm/sec Med Peak E' Armando: 7.0 cm/sec PA V2 mean: 68.4 cm/sec E/E' med: 11.4 PA mean P.0 mmHg Lat Peak E' Armando: 11.1 cm/sec PA pr(Accel): 50.6 mmHg E/E' lat: 7.2 E/e' average: 9.3 MV dec time: 0.28 sec SV(LVOT): 88.9 ml AV VR_phl: 0.69 NICOLE(VTI)/BSA_phl: 1.1 Reading Physician:04:55 PM
== END ==
PROVIDERS: Family Provider Family Medicine; PCP Family Medicine; Referring Provider Family Medicine; Visit Provider Family Medicine
DX: I10 Essential (primary) hypertension (principal)
CPT/HCPCS: 93306

== ENCOUNTER 2023-06-08 06:41 | Inpatient (IN) | payer MEDICARE, BC, SELFPAY ==
[2023-03-14 18:54] VITALS: BMI 29.6
[2023-06-04 12:33] VITALS: BMI 30.2
[2023-06-08] VITALS (16 sets, daily range): BP systolic 119–146; BP diastolic 67–100; PULSE 53–74; RESP 14–17; TEMP 36.1–36.6; O2SAT 12–97; BMI 33.3
--- NOTE | 2023-06-08 | DI.RAD.S_ITS ---
PROCEDURE: XR KNEE LT 1TO2V INDICATIONS: POST OP TECHNIQUE: 2 view(s) of the knee acquired. COMPARISON: [facility], CR, XR KNEE 4+ VIEWS LEFT, 04/25/2023, 15:07. [facility], CR, XR KNEE LT 1TO2V, 03/14/2023, 17:26. FINDINGS: Bones: Patient is status post knee joint arthroplasty. Hardware components are in expected positions. Visualized bony structures are intact. Soft tissues: Overlying postoperative changes are noted. IMPRESSION: Expected appearance of the left knee arthroplasty. Dictated by: Kilo Szymanski M.D. on 06/08/2023 at 14:52 Approved by: Kilo Szymanski M.D. on 06/08/2023 at 14:53
[2023-06-08] MEDS: LACTATED RINGERS 1,000 ML 42 ML IV (07:50)
[2023-06-08] MEDS: ACETAMINOPHEN 325 MG TABLET 975 MG PO (07:51)
[2023-06-08] MEDS: VANCOMYCIN 1,000 MG/200 ML PIGGYBACK 200 MG IV (07:51)
[2023-06-08] MEDS: CELECOXIB 200 MG CAPSULE PO (07:51)
--- NOTE | 2023-06-08 09:57 | PM.PREOP ---
Pre-operative Note Interval Note History & Physical reviewed/Exam performed by Physician: Yes Changes to H&P: No
--- NOTE | 2023-06-08 10:24 | SUR.PREOP ---
Block start time [0956] . Monitoring initiated and maintained throughout procedure. Oxygen and medications given per anesthesiologist instructions. Patient remained stable throughout procedure, no adverse reactions noted. Block end time [1006].
[2023-06-08] MEDS: CEFAZOLIN 2 GM/100 ML PREMIX 100 ML IV ×2 (10:35→18:10)
[2023-06-08] MEDS: TRANEXAMIC ACID 1,000 MG VIAL 1000 MG INJ ×2 (10:45→13:45)
[2023-06-08] MEDS: BUPIVACAINE 0.25% (PF) 60 ML, EPINEPHrine 0.3 MG INJ (11:10)
[2023-06-08] MEDS: BUPIVACAINE LIPOSOME 266 MG/20 ML VIAL INJ (11:11)
[2023-06-08] MEDS: OXYCODONE IR 5 MG TABLET PO ×2 (14:32→15:47)
[2023-06-08] MEDS: ONDANSETRON 4 MG/2 ML INJ IV (14:32)
[2023-06-08] MEDS: INSULIN LISPRO 100 UNIT/ML 3ML VIAL SUBCUT ×3 (14:34→21:39)
--- NOTE | 2023-06-08 15:21 | P.OP_ITS ---
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 He has previously had explantation of his total knee arthroplasty and implantation of an antibiotic spacer. He underwent about an 8 week course of IV antibiotics. He had preoperative cultures which were negative for infection. He is now brought back to the operating room for implantation of the total knee arthroplasty and revision knee arthroplasty. The risks, benefits and alternatives to surgery were discussed with the patient prior to proceeding. Risks discussed included, but were not limited to, failure to relieve pain, stiffness, infection, nerve damage, deep venous thrombosis, pulmonary embolism, stroke, coma, heart attack, permanent paralysis and , as well as the potential need for eventual revision of the prosthetic. Surgeon: Alexus Del Rio Catapult And Arresting Gear Officer: Rohit Richter Anesthesia Type: General, Spinal and Peripheral nerve block Operative Notes Findings: Left total knee arthroplasty removal of antibiotic spacer with essentially no justine ne loss, no evidence of active infection, multiple cultures sent, acceptable bone and stability Closure Type: primary Specimen(s): other (Multiple cultures and PCR to the [facility]) Prosthetic devices, grafts, tissues, transplants, or devices: Del Rio and Nephew legion size 6 femur, 10 mm distal femoral augments medially and laterally, 12 x 160 mm legion femoral stem, size 5 tibial tray, short 18 mm cone, straight 12 x 120 mm femoral stem, +15 poly, 35 x 7-1/2 mm patellar component Estimated Blood Loss (mL): 250 Blood products transfused: none Tourniquet time (min): 134 Procedure in detail: The patient was seen in the pre-operative area, where the patient identified the left knee as the operative site and this was marked with my initials. The patient received pre-operative antibiotics, and was taken to the operating room and placed on the operative table in the supine position. After satisfactory anesthesia, a tabulating supervisor out was performed. The left leg was encircled with a tourniquet about the proximal thigh, and the leg was prepared from the toes to the tourniquet with ChloroPrep in the usual fashion and draped through sterile drapes. The leg was elevated and exsanguinated with Eschmark bandage and the tourniquet inflated to [250] mmHg pressure. Dr. Richter was used as a co-surgeon excellent psychology assistant during the procedure and was essential for intraoperative retraction and safe implantation of the components. The knee was approached through an approximately 24 cm incision centered over the patella and carried into the knee through a medial parapatellar arthrotomy. The patient's previous skin incision was used. I did resect the incision in order to give a clean healing wound edge for approximation. An arthrotomy was performed. The previously paced sutures were removed. Fluid was sent for Gram stain culture and sensitivity. During the case I then got multiple specimens including synovium, femur, tibia, and patella and sent them for combination of Gram stain culture and sensitivity and PCR. An arthrotomy was performed. I did a synovectomy in order to mobilize and allow adequate exposure. A fairly extensive synovectomy was performed. Flexed the knee up and I used an oscillating saw to resect across the cement mantle at the base of the tibia in order to remove the tibial component and make additional room. That did allow better mobilization of the knee. I worked around the patella and removed any residual scar tissue. Used a caliper to assess the amount of residual bone. Was felt that we could probably reimplant patellar component. The femoral component was removed without difficulty. Essentially 0 bone loss occurred with removing the femoral component. We then worked meticulously clean around the tibia and the posterior aspect of the knee and some across the gutters. Retractors were placed around the tibia. Intramedullary device was used in the tibia. I put a mariano down into the tibia. Did a clean-up cut on the tibial surface. Resecting 1 mm of bone. The alignment of the tibia looked good and it looked like there was adequate bone in the tibia but there was a central defect and I felt that the patient was appropriate candidate for a cone. The tibial surface was sized as a size 5. We then reamed for a short stem. I then enlarged that some with a comb and prep for the cone which was inserted without difficulty. Checked the rotation of the tibial component let the tibia float slightly on the cone with a shorter stem. We then prepped for the femur. I used a 0 I stripped all of the scar and tissues from around the surface of the femoral component. Then reamed up in 2 the femur and reamed up to a size 12 which looked like an by 160 which looked like an adequate plan for a femoral stem. We then reamed centrally so that the trial component could be placed. Placed the trial component with a 160 mm stem. It did look like the component adequately fit as was her tibial component in we checked the flexion 25 extension with a femoral component at the level that it was placed and I did not think there was a significant flexion extension mismatch. Did a trial reduction Tigist initially with a 9 poly and then went up to an 11 and 13. With a 13 poly there was symmetrical minimal residual gapping both in flexion and extension the alignment of the leg showed anatomic alignment and there was good back it was noted that the residual bone fragment sense of lateral release. And then meticulously cleaned around the the patella and did a clean-up cut on the patella in order to have adequate bone for patellar component fixation. Trial reduction showed good range of motion and stability. We did a we checked the femoral component after removing the polyethylene it was not felt that any posterior augments were needed the rotation of the femoral component appeared acceptable. There was adequate balance throughout range of motion. The distal femoral bone I did resection cuts for a +10 augment both on the medial and lateral aspect of the femur. Femoral component was constructed on open it is constructed on the back table. The patella was a 35 x 7 for the tibial compon ent. Trial components were then all removed. The bone was meticulously irrigated with pulse lavage. Distal cement restrictor was placed in the tibia. The cone was then placed in the tibia cement was mixed we added additional vancomycin to the cement based on the patient's preoperative organism which had been a strep which we felt that we would adequately cured but in order to provide additional antibiotics in the perioperative period. The bone was carefully cleaned with pulse lavage cement was mixed and the components were cemented into place without difficulty. A separate batch was mixed for the patellar component as with antibiotic in the cement the cement was noted to get a little bit firm. I also placed a cement restrictor in the femoral side and carefully injected cement into the femur side. Repeat trial reduction with a 13 and a 15 mm polyethylene trial showed good range of motion and stability with the 15 mm polyethylene. Final polyethylene was opened and inserted without difficulty after clearing free cement. Tourniquet was deflated. TT 134. The posterior capsule was injected with part of a mixture of 60 ml 0.25% Marcaine mixed with 20 ml Exparel for post operative pain control. The remainder of this mixture was injected into the capsule and subcutaneous tissues during cement curing. The tibial and femoral components were then placed and the knee placed through a range of motion. Range of motion was [0-130], with good stability throughout the range. Cement was applied and the final prosthetics placed. Excess cement was removed during and after cement curing. A brief Betadine soak was performed. After confirming there was no extruded cement posteriorly, the final tibial insert was placed. The knee was copiously irrigated and the tourniquet deflated. Hemostasis was obtained with the Bovie cautery. The capsule was closed with interrupted nonabsorbable suture. The subcutaneous layer was closed with barbed sutures, and the skin with a running 3-0 V-Lock suture, skin lidia and Surgical glue. A nancy dressing was applied and the patient was taken to recovery having tolerated the procedure well. Complications: none Post-operative Condition: stable Disposition: Acute Care Plan for aftercare: Out of bed full weight-bearing on the right lower extremity. Okay to ambulate as tolerated. The patient will be maintained on a standard total knee replacement protocol with weight bearing as tolerated. The patient will receive aspirin and sequential compression devices for DVT prophylaxis. The patient will be discharged home when safe for the home environment. The plan is to continue him on an oral antibiotic for 3-6 months postoperatively.
[2023-06-08] MEDS: LACTATED RINGERS 1,000 ML 100 ML IV (15:44)
[2023-06-08] MEDS: IBUPROFEN 400 MG TABLET PO ×3 (15:47→23:49)
[2023-06-08] MEDS: ACETAMINOPHEN 325 MG TABLET 650 MG PO ×2 (15:48→21:39)
[2023-06-08] MEDS: METFORMIN HCL 500 MG TABLET 2000 MG PO (16:00)
--- NOTE | 2023-06-08 16:01 | OT.IPNOTE ---
Checked on pt for OT eval and pt states does not want any OT needs as has had multiple knee surgeries . Pt states, I know what to do and have help if I need it. Pt states will work with PT tomorrow. Discharge OT eval orders.
--- NOTE | 2023-06-08 18:45 | PC.NURSE ---
Patient arrives from PACU at approximately 1530. He is fully Alert 0X4, pleasant and talkative. He initially reports pain to L knee 6/10 but improves to 4/10 with prn oxycodone ,scheduled ibuprofen and tylenol. Ezio wrap c/d/i with two nancy dressings flashing positive green lights. He reports some numbness to knee region but full sensation to LLE. He has one very large incontinent void, and is able to stand with FWW and sit in the chair for bed change. LR at 100ml/hr. His accucheck this evening is 224, he tolerates dinner well. Family and friends at bedside supportive. Call light in reach, frequent rounding.
[2023-06-08] MEDS: polyethylene glycoL 3350 17 GM POWD.PACK PO (21:36)
[2023-06-08] MEDS: ASPIRIN EC 81 MG TABLET PO (21:36)
[2023-06-08] MEDS: DOCUSATE 100 MG CAPSULE PO (21:37)
[2023-06-08] MEDS: OXYCODONE IR 10 MG TABLET PO (21:37)
[2023-06-09] MEDS: CEFAZOLIN 2 GM/100 ML PREMIX 100 ML IV (02:59)
[2023-06-09] MEDS: LACTATED RINGERS 1,000 ML 100 ML IV (02:59)
[2023-06-09] MEDS: ACETAMINOPHEN 325 MG TABLET 650 MG PO ×2 (03:00→10:48)
[2023-06-09] MEDS: IBUPROFEN 400 MG TABLET PO ×2 (03:00→08:36)
--- NOTE | 2023-06-09 03:29 | PC.NURSE ---
Patient is a SBA w/ FWW, ambulated down hallway earlier this evening, tolerated ambulation well. Patient is currently laying down on the bench by the window despite asking to move back to the bed or the chair. Patient is adamant about laying down on a flat surface. Offered to switch out patient bed, patient refused. Advised patient that the call light will not reach the bench, patient stated that he won't need anything. Chair alarm is on, frequent checks in place.
[2023-06-09 05:04] VITALS: BP 121/69; PULSE 64; RESP 17; TEMP 36.2; O2SAT 96
[2023-06-09 05:21] LABS: Hematocrit 39.3 % (41-53); Hemoglobin 13.3 g/dL (13.5-17.5)
[2023-06-09] MEDS: LEVOTHYROXINE 100 MCG TABLET 200 MCG PO (05:48)
[2023-06-09] MEDS: METFORMIN HCL 500 MG TABLET 2000 MG PO (08:23)
[2023-06-09] MEDS: INSULIN LISPRO 100 UNIT/ML 3ML VIAL SUBCUT (08:33)
[2023-06-09] MEDS: DOCUSATE 100 MG CAPSULE PO (08:36)
[2023-06-09] MEDS: AMLODIPINE 5 MG TABLET PO (08:37)
[2023-06-09] MEDS: ASPIRIN EC 81 MG TABLET PO (08:37)
[2023-06-09] MEDS: hydroCHLOROthiazide 25 MG TABLET 50 MG PO (08:42)
[2023-06-09 09:00] VITALS: BP 129/61; PULSE 59; RESP 16; TEMP 36.2; O2SAT 99
--- NOTE | 2023-06-09 09:13 | PM.DS.1 ---
History of Present Illness History of Present Illness Date Patient Seen: 06/09/23 Time Patient Seen: 09:23 Chief complaint: Knee pain Narrative: Patient's pain is [id number]. Denies fever or chills. No nausea or vomiting. Patient has been able to ambulate in the bartlett. Discharge Providers Provider Date of admission: 06/08/23 06:41 Discharge Date: 06/09/23 Primary care physician: Jose Adams MD Consults: 06/04/23 15:18 Consult to Yard Coordinator Routine Comment: Denied assistance at home 06/08/23 07:40 Consult to Anesthesiology Routine Comment: Consulting Provider: Anesthesiologist Reason for consultation: Regional block for post operative pain control 06/08/23 15:27 Consult to Dietitian, Adult Routine Comment: Reason For Exam: diabetes Consult to Discharge Planning Routine Comment: Consult to Occupational Therapy Evaluate & Treat Comment: Physician Instructions: Evaluate and treat Consult to Physical Therapy Evaluate & Treat Comment: Physician Instructions: postop TKA protocol Discharge provider: Meng Baron PA-C Summary Hospital Course Discharge Diagnosis: 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 He has previously had explantation of his total knee arthroplasty and implantation of an antibiotic spacer. He underwent about an 8 week course of IV antibiotics. He had preoperative cultures which were negative for infection. He is now brought back to the operating room for implantation of the total knee arthroplasty and revision knee arthroplasty. The risks, benefits and alternatives to surgery were discussed with the patient prior to proceeding. Risks discussed included, but were not limited to, failure to relieve pain, stiffness, infection, nerve damage, deep venous thrombosis, pulmonary embolism, stroke, coma, heart attack, permanent paralysis and , as well as the potential need for eventual revision of the prosthetic. Surgeon: Alexus Del Rio Steward/Stewardess Tourist Class: Rohit Richter Anesthesia Type: General, Spinal and Peripheral nerve block Operative Notes Findings: Left total knee arthroplasty removal of antibiotic spacer with essentially no bone loss, no evidence of active infection, multiple cultures sent, acceptable bone and stability Closure Type: primary Specimen(s): other (Multiple cultures and PCR to the [facility]) Prosthetic devices, grafts, tissues, transplants, or devices: Del Rio and Nephew legion size 6 femur, 10 mm distal femoral augments medially and laterally, 12 x 160 mm legion femoral stem, size 5 tibial tray, short 18 mm cone, straight 12 x 120 mm femoral stem, +15 poly, 35 x 7-1/2 mm patellar component Estimated Blood Loss (mL): 250 Blood products transfused: none Tourniquet time (min): 134 Patient admitted to the hospital for the above-mentioned procedure. Patient consented to the same. Patient underwent revision left total knee arthroplasty June 08, 2023. Patient is back in his room recovering well as in stable condition. Dressing is clean, dry and intact. Patient has been able to ambulate in the bartlett. Patient will be weight-bearing as tolerated. Kenroy instructions reviewed. Keflex 500 mg t.i.d.. Follow up in 2 weeks as scheduled. Discharge home today in stable condition. Exam Vital Signs (past 8 hours): - 06/09/23 05:04 Temperature 97.2 F L Pulse Rate 64 Respiratory Rate 17 Blood Pressure 121/69 Pulse Oximetry 96 Oxygen Delivery Method Nasal Cannula Oxygen Flow Rate 0 Narrative Exam Narrative: 68-year-old male sitting in bedside chair in no apparent distress. Dressing is on and functioning. Motor functions intact bilateral lower extremities. Sensation grossly intact to light touch bilateral lower extremities. Const General: cooperative and comfortable Nutritional Appearance: average body habitus Orientation: alert Resp Effort & Inspection: normal respiratory effort and able to speak in complete sentences Objective Labs 06/09/23 04:50 Labs: Laboratory Results - last 24 hr 06/09/23 04:50 Hgb 13.3 L Hct 39.3 L [facility] CLIA ID [id number] [address] [place] [address], [facility] RUN DATE: 06/09/23 Specimen Inquiry PAGE 1 RUN TIME: 925 Name: ИванGideon Suraj Age/Sex: 68/M Attend Dr: Alexus Del Rio MD Unit#: [id number] : 1955Location: AC 224-1 Re06/08/23 Disch: Status: ADM IN SPEC #: [id number] ANA CRISTINA: 06/08/23 STATUS: RES REQ #: [id number] SPDESC: RECD: 10/13/23-[address]: Alexus Del Rio MD SOURCE: Knee Lt ENTR: 06/08/23-[address]: Jose Adams MD FAX TO: ORDERED: WOUND Cx and GS COMMENTS: Comment Patella Procedure Result Verified Site Gram Stain Final 06/08/23-1651 No Organism Seen No organisms seen White blood cells No WBC seen Aerobic Culture for wounds Pending Anaerobic Culture Pending [facility] Medical History Osteoarthritis History of prosthetic unicompartmental arthroplasty of left knee (2018) Hypothyroidism Diabetes HTN (hypertension) JONELLE (obstructive sleep apnea) Viral URI Surgical History Status post PICC central line placement Hx of left knee surgery (01/29/23) Hx of left knee surgery (07/26/22) Hx of hand surgery Hx of arthroscopy of right knee Hx of arthroscopy of left knee Hx of tonsillectomy H/O vasectomy Hx of colonoscopy with polypectomy Hx of hernia repair Social History household members: none lives independently: Yes Smoking Status: Former smoker alcohol intake: former Discharge Assessment & Plan Assessment and Plan Assessment: Patient progressing as expected status post revision left total knee arthroplasty Plan of Treatment: Weightbearing as tolerated Multimodal pain management Aspirin 81 mg b.i.d. for DVT prophylaxis Cephalexin 500 mg t.i.d. x4 weeks, likely continue for 3-6 months postoperatively Follow-up orthopedics as scheduled in 2 weeks Discharge Plan Discharge Plan Patient Disposition: Home Discharge orders & Medications Prescriptions: New acetaminophen 325 mg Tablet 650 mg PO Q6H Qty: 60 0RF polyethylene glycol 3350 17 gram Powder In Packet 17 g PO DAILY PRN (Reason: Constipation) Qty: 14 0RF oxycodone 10 mg Tablet 10 mg PO Q3H PRN (Reason: Pain, Severe (7-10)) Qty: 40 0RF cephalexin 250 mg Capsule 500 mg PO TID 28 Days Qty: 168 0RF Continued metformin 500 mg Tablet 2,000 mg PO QAM amlodipine 5 mg Tablet 5 mg PO DAILY levothyroxine 200 mcg Tablet 200 mcg PO DAILY Jardiance 25 mg Tablet 25 mg PO DAILY hydrochlorothiazide 50 mg Tablet 50 mg PO DAILY aspirin 81 mg Tablet,Delayed Release (Dr/Ec) 81 mg PO BID Qty: 84 0RF hydroxyzine pamoate 25 mg Capsule 25 mg PO Q6H PRN (Reason: Nausea And Vomiting) Qty: 40 0RF docusate sodium 100 mg Capsule 100 mg PO BID PRN (Reason: constipation) Qty: 60 1RF ibuprofen 400 mg tablet 400 mg PO Q4H PRN (Reason: Pain (Scale Score 1-3)) Discontinued acetaminophen 325 mg Tablet 650 mg PO Q6HR Qty: 250 0RF oxycodone 5 mg Tablet 5 mg PO Q3H PRN (Reason: Pain, Moderate (4-6)) Qty: 60 0RF Follow up/Referrals: Jose Adams MD [Primary Care Provider] - Alexus Del Rio MD [Physician] - (2 weeks as scheduled) Diet/Activity/Treatments Diet: Diet as Tolerated Activity: Weightbearing as tolerated Cold/Heat Therapy: Ice to knee as needed Skin/Wound/Dressing Care Report to your healthcare provider any signs of infection, such as:: chills, fever, night sweats, increased pain, unusual drainage and unusual redness Dressing: Keep dressing clean and dry Visit Report/Discharge Packet Instructions: DI for Knee Replacement, DI for Prescription Opioid Use Stand Alone Forms: Patient Portal/API, Stroke Signs & Symptoms, Surgery Discharge Discharge Data Primary Care Provider: Jose Adams Quality VTE Deep Vein Thrombosis/Pulmonary Embolism Present on Admission: No
--- NOTE | 2023-06-09 10:20 | PT.IIE ---
Current Diagnoses Infection and inflammatory reaction due to internal left knee prosthesis, initial encounter (06/08/23) Surgery Performed Operation Date: 06/08/23 09:15 Actual Procedures p Total Knee Arthroplasty Revision - knee component(Left) - Alexus Del Rio MD Surgical History (Last Reviewed 06/09/23 @ 09:26 by Meng Baron PA-C) H/O vasectomy Hx of arthroscopy of left knee Hx of arthroscopy of right knee Hx of colonoscopy with polypectomy Hx of hand surgery Hx of hernia repair Hx of left knee surgery (07/26/22) Hx of left knee surgery (01/29/23) Hx of tonsillectomy Status post PICC central line placement Medical History (Last Reviewed 06/09/23 @ 09:26 by Meng Baron PA-C) Diabetes History of prosthetic unicompartmental arthroplasty of left knee (2018) HTN (hypertension) Hypothyroidism JONELLE (obstructive sleep apnea) Osteoarthritis Viral URI Physical Therapy Inpatient Evaluation/Re-Eval M1 PT/OT-IP Prior Functional Status Start: 06/09/23 14:13 Freq: NEEDED Status: Active Protocol: Document 06/09/23 10:20 AB (Rec: 06/09/23 14:41 AB [id number]) Medical Review Prior Functional Status Medical History Reviewed Yes Communication able to make needs known Mobility and Gait pt stated that he is independent with all mobilities and ambulation without AD but started using a SPC ~ 2weeks ago due to knee pain Social History Household Members none Living Arrangements House Number of Floors (Floors) Two Floors Number of Stairs To Enter/Railing? 5 steps wide rails to enter the house 15 steps R rail ascending from the basement where he has to go up/down to let his dogs out Home Environment Standard Height Toilet,Tub/ Shower Home Equipment Four Wheel Walker,Straight Cane,Hand Held Shower,Grab Bars In Shower Additional Social History Comment pt sleeps on his recliner at home M2 PT-IP Current Condition Start: 06/09/23 14:13 Freq: NEEDED Status: Active Protocol: Document 06/09/23 10:20 AB (Rec: 06/09/23 14:41 AB [id number]) Physical Therapy Current Condition Current Condition Evaluation Date 06/09/23 Treatment Diagnosis s/p L TKA revision; difficulty in walking Onset Date 06/08/23 M3 PT-IP Subjective Start: 06/09/23 14:13 Freq: NEEDED Status: Active Protocol: Document 06/09/23 10:20 AB (Rec: 06/09/23 14:41 AB [id number]) Subjective Physical Therapy Visit Type Type Initial Evaluation Visit Start Time 10:20 Visit Stop Time 10:50 Total Visit Minutes 30 Number of INSTRUCTOR WEAVING Visits 0 Physical Therapy Visit Comments Patient Comments agreeable to do PT Therapy Pain Assessment Pain When Pain Assessed At Rest Pain Present Pain Present Pain Reported Location left knee Intensity 6 Scale Used Numeric (0 - 10) Pain Management Techniques Modification of Treatment,Re- positioning,Timing of Activity with Medications M4 PT-IP Mobility and Gait Start: 06/09/23 14:13 Freq: NEEDED Status: Active Protocol: Document 06/09/23 10:20 AB (Rec: 06/09/23 14:41 [id number]) PT-Transfer Assessment Sit to and From Stand Sit to and from Stand Standby Assistance Equipment Transfer Assistive Device Gait Belt,4 Wheeled Walker Orthotic/Prosthetic Devices or Brace: No Transfers Transfer Destination Chair Comments Mobility Comments pt sitting on the chair. stated that he is ready to go home. pt stated that he had a previous knee surgery and knowns what he can/cannot do. pt directs his own care. completed sit to stand SBA and ambulated towards the stairs using 4WW ~ 250 ft SBA. completed up/down steps using B rail initially SBA but also able to complete using just R rail ascending SBA. pt ambulated back to his room using 4WW SBA. sat back on the chair. pt without other concerns. call light within reach. Gait Assessment Gait Gait Assistance Required: Standby Assistance Distance (Feet) 250 Able to Maintain Weight Bearing Status Yes During Gait Assistive Devices Assistive Device Gait Belt,4 Wheeled Walker Orthotic/Prosthetic Devices or Brace: No Gait Deviations General Gait Pattern Antalgic Factors Limiting Gait Function Factors Limiting Gait Function Decreased Activity Tolerance, Decreased Strength,Limited Range of Motion,Pain,Poor Balance,Poor Safety Awareness Stair Climbing Assessment Evaluation Level of Assist On Stairs Standby Assistance Devices Stair Climbing Assistive Devices Left Railing,Right Railing Technique/Endurance Stair Climbing Direction Ascend and Descend Stair Climbing Technique Step to Step Number of Steps Climbed 3 Query Text: Stair Climbing Set # Repetitions (reps) 3 Comments Stair Climbing Comments pls refer to mobility section for details PT-Balance Assessment Sitting Balance and Reactions Static Sitting Balance Ability Normal Dynamic Sitting Balance Ability Normal Standing Balance and Reactions Static Standing Balance Ability Good Dynamic Standing Balance Ability Fair Device Used FWW M5 PT-IP Objective Assessments Start: 06/09/23 14:13 Freq: NEEDED Status: Active Protocol: Document 06/09/23 10:20 AB (Rec: 06/09/23 14:41 AB [id number]) Orientation Orientation/Cognition Level of Alertness Alert Orientation Name,Age,Birthday,Month,Date, Year,Day of Week,Place, Situation Language Function Ability No Deficits Noted Safety Awareness Decreased Safety Awareness Memory Description No Deficits Noted Gross Range of Motion Lower Extremity ROM Assessment Left Impaired Impairments pt refusing for LLE to be moved and stated that for now, that is all he can do for the LLE Muscle Tone Muscle Tone WNL Yes M6 PT-IP Treatment Start: 06/09/23 14:13 Freq: NEEDED Status: Active Protocol: Document 06/09/23 10:20 AB (Rec: 06/09/23 14:41 AB [email or web address]) Physical Therapy Treatment Education Education Provided Precautions,Weight Bearing Status,Post-Op Packet,Safety M7 PT-IP Assessment and Plan Start: 06/09/23 14:13 Freq: NEEDED Status: Active Protocol: Document 06/09/23 10:20 AB (Rec: 06/09/23 14:41 AB [id number]) PT Summary Assessment and Plan Potential Rehabilitation Potential Fair Status of Condition at Evaluation Evolving Summary Impairments Pain,ROM,Strength,Balance, Coordination,Sensation,Tone, Cognition,Bed Mobility, Transfers,Gait,Activity Tolerance Assessment Summary pt is a 68 y/o male who underwent L TKA revision. pt lives alone but stated that he does not need any assistance. pt able to transfers and ambulate using 4WW SBA and completed stair climbing using 1 rail SBA. pt may go home when medically stable Goals Bed Mobility Goal Independent Transfer Goal Independent,Four Wheeled Walker Gait Goal Independent,Four Wheel Walker Gait Distance 300 Other Goals up/down 15 steps R ascending mod I Days to Meet Goals 5 Frequency of Treatment Frequency Of Treatment Twice a Day Treatment Plan Physical Therapy Treatment Plan Bed Mobility Training,Transfer Training,Gait Training, Therapeutic Exercise,Balance Retraining,Post Op Education, Discharge Planning,Hot or Cold Pack,Neuromuscular Re-ed, Coordination Retraining,Manual Therapy Weight Bearing Status Weight Bearing Status Weight Bear as Tolerated Allowed Weight Bearing Amount (enter % LLE WBAT or #) (%) Recommendations To Nursing Amount of Assist Needed Standby Assistance Discharge Recommendations PT Discharge Recommendations Home with Assistance, Outpatient PT Transportation Needs at Discharge Private Vehicle
[2023-06-09 10:36] LABS: Add Manual Diff / Slide Review NO; Basophils Absolute Auto 100 /uL (0-100); Basophils Percent Auto 0.5 % (0-2); Eosinophils Absolute Auto 0 /uL (0-450); Eosinophils Percent Auto 0.2 % (2-4); Hematocrit 39.6 % (41-53); Hemoglobin 13.3 g/dL (13.5-17.5); Lymphocytes Absolute Auto 1300 /uL (1100-4500); Lymphocytes Percent Auto 12.9 % (25-40); Mean Corpuscular HGB Conc 33.6 % (30-36); Mean Corpuscular Hemoglobin 26.6 PG (26-34); Mean Corpuscular Volume 79.2 fL (80-100); Monocytes Absolute Auto 900 /uL (0-900); Monocytes Percent Auto 8.7 % (3-14); Neutrophils Absolute Auto 7800 /uL (1500-7000); Neutrophils Percent Auto 77.7 % (50-75); Platelet Count 193 X10^3/uL (150-400); Red Cell Distribution Width 17.7 % (11.6-14.8)
[2023-06-09] MEDS: OXYCODONE IR 10 MG TABLET PO (10:47)
[2023-06-09 10:53] LABS: C-Reactive Protein Quant 4.7 mg/dL (<1.0)
--- NOTE | 2023-06-09 11:55 | PC.NURSE ---
Pt A&Ox4, VSS, ambulating well in [place] with FWW. Reviewed discharge packet with patient, patient able to teach back information independently. IV removed, tolerated well. Walked patient downstairs and discharged patient home with ride from family member.
[2023-06-09 11:59] LABS: Erythrocyte Sedimentation Rate 10 MM/HR (0-15)
--- NOTE | 2023-06-09 12:22 | CM.DANOTE ---
Discharge Planning/Care Management CM Discharge Assessment Start: 06/09/23 12:19 Freq: Status: Discharge Protocol: Document 06/09/23 12:19 GERI (Rec: 06/09/23 12:22 GERI [id number]) Discharge Planning Assessment Assigned Head Of Loss Prevention MICHELL Lyon DPOA/Assigned Designee Name Parvez Kcle Contact Information [phone] Advance Directives? No Advance Directives on File Yes History Provided By Patient,Medical Record Prior Living Arrangements House Household Members none Type of transporation used prior to Drives own vehicle admit Independent with ADL's Yes Is patient alert and oriented? Yes Patient/Family Preference OP PT Therapy Comment Patient POD1 from Left TKA. Patient has planned for return home w/friends and family to assist and PT has cleared him for this plan. Hx includes infected left knee replacement w/ongoing IV abx infusion thru [facility] infusion suite daily ( receives infusion on the ACU Sun-Sun) No needs identified from this CM team , home w/close outpatient follow up Discharge Plan Home Transportation Arrangement Friend POGreg
== END 2023-06-09 11:45 | disposition home or self-care (01) | DRG 468 ==
PROVIDERS: Physician Assistant Medical; Admitting Provider Orthopaedic Surgery; Family Provider Family Medicine; PCP Family Medicine; Referring Provider Orthopaedic Surgery; Visit Provider Orthopaedic Surgery
PROC: 0SPD0JZ Removal of Synthetic Substitute from Left Knee Joint, Open Approach (ICD-10-PCS; principal; 2023-06-08 09:15)
DX: T84.54XA Infection and inflammatory reaction due to internal left knee prosthesis, initial encounter (principal); E11.9 Type 2 diabetes mellitus without complications; E03.9 Hypothyroidism, unspecified; I10 Essential (primary) hypertension; Z87.891 Personal history of nicotine dependence; Z79.84 Long term (current) use of oral hypoglycemic drugs
CPT/HCPCS: 36415; 64450; 73560; 82962; 85014; 85018; 85025; 85651; 86140; 87070; 87075; 87205; 87801; 93306; 97162; C1776; C1713; C9290; J0171; J0690; J1100; J1815; J2250; J2405; J2704

== ENCOUNTER → 2023-08-14 14:35 | Outpatient (CLI) | payer MEDICARE, BC, SELFPAY ==
[2023-06-08 15:20] VITALS: BMI 33.3
[2023-08-14 15:15] LABS: Add Manual Diff / Slide Review NO; Basophils Absolute Auto 100 /uL (0-100); Basophils Percent Auto 1.4 % (0-2); Eosinophils Absolute Auto 100 /uL (0-450); Eosinophils Percent Auto 2.3 % (2-4); Hematocrit 43.8 % (41-53); Hemoglobin 14.9 g/dL (13.5-17.5); Lymphocytes Absolute Auto 1500 /uL (1100-4500); Lymphocytes Percent Auto 23.5 % (25-40); Mean Corpuscular HGB Conc 33.9 % (30-36); Mean Corpuscular Hemoglobin 27.4 PG (26-34); Mean Corpuscular Volume 80.7 fL (80-100); Monocytes Absolute Auto 400 /uL (0-900); Monocytes Percent Auto 6.8 % (3-14); Neutrophils Absolute Auto 4200 /uL (1500-7000); Platelet Count 227 X10^3/uL (150-400); Red Blood Cell Count 5.43 X10^6/uL (4.5-5.9); Red Cell Distribution Width 16.4 % (11.6-14.8); White Blood Cell Count 6.4 X10^3/uL (4.5-11.0)
[2023-08-14 15:23] LABS: Hemoglobin A1C% w Est Avg Glu 8.2 % (4.0-6.0)
[2023-08-14 15:39] LABS: Alanine Aminotransferase 24 IU/L (<50); Albumin 4.2 g/dL (3.5-5.0); Albumin Globulin Ratio 1.4 (1.0-2.8); Alkaline Phosphatase 66 U/L (38-126); Aspartate Aminotransferase 22 IU/L (17-59); BUN Creatinine Ratio 23.5 (6-22); Bilirubin Total 0.5 mg/dL (0.2-1.3); Blood Urea Nitrogen 19 mg/dL (9-20); Calcium 9.4 mg/dL (8.4-10.2); Carbon Dioxide 20 mmol/L (22-32); Chloride 102 mmol/L (98-107); Cholesterol 215 mg/dL (140-199); Estimated Glomerular Filt Rate > 60 mL/min (>60); Globulin 2.9 g/dL (1.7-4.1); Glucose 211 mg/dL (80-110); HDL Cholesterol 41 mg/dL (40-60); HEMOLYSIS < 15 (0-50); Magnesium 2.1 mg/dL (1.6-2.3); Potassium 4.5 mmol/L (3.4-5.1); Sodium 133 mmol/L (137-145); Total Protein 7.1 g/dL (6.3-8.2); Triglycerides 508 mg/dL (35-150)
[2023-08-14 16:06] LABS: Thyroid Stimulating Hormone 4.15 uIU/mL (0.47-4.68)
[2023-08-14 16:11] LABS: Testosterone 257 ng/dL (71.8-623)
[2023-08-14 16:28] LABS: Vitamin B12 364 pg/mL (239-931)
== END ==
PROVIDERS: Family Provider Family Medicine; PCP Family Medicine; Referring Provider Family Medicine; Visit Provider Family Medicine
DX: E11.65 Type 2 diabetes mellitus with hyperglycemia (principal); I10 Essential (primary) hypertension; E03.9 Hypothyroidism, unspecified; E29.1 Testicular hypofunction; E66.8 Other obesity; E78.2 Mixed hyperlipidemia; M10.9 Gout, unspecified; E55.9 Vitamin D deficiency, unspecified; M12.89 Other specific arthropathies, not elsewhere classified, multiple sites; Y79.2 Prosthetic and other implants, materials and accessory orthopedic devices associated with adverse incidents; Z79.899 Other long term (current) drug therapy
CPT/HCPCS: 36415; 80053; 80061; 82306; 82607; 83036; 83735; 84153; 84403; 84443; 84550; 85025

== ENCOUNTER 2023-10-06 13:23 | Observation (INO) | payer MEDICARE, BC, SELFPAY ==
[2023-06-08 15:20] VITALS: BMI 33.3
[2023-10-06] VITALS (9 sets, daily range): BP systolic 129–191; BP diastolic 79–92; PULSE 49–58; RESP 15–25; TEMP 36.2–36.8; O2SAT 95–99; BMI 31.4; BMI 32.0
--- NOTE | 2023-10-06 13:41 | DI.RAD.S_ITS ---
PROCEDURE: XR CHEST 1V INDICATIONS: Possible stroke TECHNIQUE: One view of the chest was acquired. COMPARISON: [facility], , XR CHEST FOR PICC 1V, 01/31/2023, 9:33. FINDINGS: Surgical changes and devices: None. Lungs and pleura: Lungs are clear. No pleural effusions or pneumothorax. Mediastinum: Mediastinal contours appear normal. Heart size is normal. Bones and chest wall: No suspicious bony lesions. Overlying soft tissues appear unremarkable. IMPRESSION: No acute cardiopulmonary abnormality is seen. Approved by: Rohit Doll M.D. on 10/06/2023 at 14:25
--- NOTE | 2023-10-06 13:41 | DI.CT.S_ITS ---
PROCEDURE: CT HEAD/BRAIN WO CON INDICATIONS: stroke symptoms TECHNIQUE: Noncontrast 4.5 mm thick angled axial sections acquired from the foramen magnum to the vertex, with coronal and sagittal reformats. For radiation dose reduction, the following was used: automated exposure control, adjustment of mA and/or kV according to patient size. COMPARISON: [facility], CT, CT HEAD/BRAIN WO CON, 08/10/2021, 19:09. FINDINGS: Image quality: Diagnostic. CSF spaces: Basal cisterns are patent. No extra-axial fluid collections. Ventricles are normal in size and shape. Brain: No midline shift. No intracranial masses or hemorrhage. [place]-white matter interface is normal. Skull and face: Calvarium and visualized facial bones are intact, without suspicious lesions. Sinuses: Visualized sinuses and mastoids are clear. IMPRESSION: No intracranial hemorrhage or mass effect. No CT evidence of large territory acute infarct. Approved by: Rohit Doll M.D. on 10/06/2023 at 13:29
--- NOTE | 2023-10-06 13:47 | ED.NEUROSD ---
HPI - Neuro Symptoms/Deficit General Chief Complaint: Neuro Symptoms/Deficit Stated Complaint: possible stroke Time Seen by Provider: 10/06/23 13:46 History of Present Illness HPI Narrative: 68-year-old male with history of hypertension, cem-[id number] diabetes presents by private vehicle from home for right upper and lower extremity weakness since 06/25 last night. Patient states he was lifting boxes when he noticed weakness in his right side. States he did not immediately go to the doctors because ?I do not trust the doctors at the other hospital?. Feels the same as symptom onset yesterday. Related Data Home Medications Medication Instructions Recorded Confirmed amlodipine 5 mg tablet 5 mg PO DAILY 07/13/22 10/06/23 empagliflozin 25 mg tablet 25 mg PO DAILY 07/13/22 10/06/23 (Jardiance) levothyroxine 200 mcg tablet 200 mcg PO DAILY 07/13/22 10/06/23 metformin 500 mg tablet 2,000 mg PO QAM 07/13/22 10/06/23 empagliflozin 25 mg tablet 25 mg PO DAILY 10/06/23 10/06/23 (Jardiance) hydrochlorothiazide 50 mg tablet 50 mg PO DAILY 10/06/23 10/06/23 oxycodone-acetaminophen 5 mg-325 1 tab PO Q4-6H PRN Pain (Scale 10/06/23 10/06/23 mg tablet Score 7-10) zolpidem 10 mg tablet 10 mg PO ONCE PM 10/06/23 10/06/23 Previous Rx's Medication Instructions Recorded acetaminophen 325 mg tablet 650 mg (2 x 325 mg) PO Q6H #60 tabs 06/09/23 Allergies Allergy/AdvReac Type Severity Reaction Status Date / Time No Known Drug Allergies Allergy Verified 10/06/23 13:55 Review of Systems Review of Systems Narrative: Negative except as noted above Patient History Medical History Osteoarthritis History of prosthetic unicompartmental arthroplasty of left knee (2018) Hypothyroidism Diabetes HTN (hypertension) JONELLE (obstructive sleep apnea) Viral URI Surgical History Status post PICC central line placement Hx of left knee surgery (01/29/23) Hx of left knee surgery (11/30/22) Hx of hand surgery Hx of arthroscopy of right knee Hx of arthroscopy of left knee Hx of tonsillectomy H/O vasectomy Hx of colonoscopy with polypectomy Hx of hernia repair Social History household members: none lives independently: Yes Smoking Status: Former smoker alcohol intake: former Smoking Status: Former smoker alcohol intake frequency: holidays/special occasions only Substance Use Type: does not use Exam Initial Vital Signs Initial Vital Signs: Vital Signs Temperature 98.3 F 10/06/23 13:44 Pulse Rate 55 L 10/06/23 13:44 Respiratory Rate 17 10/06/23 13:44 Blood Pressure 172/92 H 10/06/23 13:44 Pulse Oximetry 98 10/06/23 13:44 Oxygen Delivery Method Room Air 10/06/23 13:44 Const: Awake, alert, no acute distress, nontoxic appearing Cardiac: regular rate, regular rhythm RESP: unlabored, clear bilaterally, no wheezing GI: Atraumatic, soft, nontender, nondistended, no rebound, no guarding MSK: Atraumatic, full range of motion, pulses equal Skin: Warm, Dry, intact, no rashes Neuro: AO x3, right upper and lower extremity weakness compared to left upper and lower extremities. Speech normal. No sensory loss. No ataxia Psych: affect normal, mood normal, not suicidal, not homicidal Scores NIH Stroke Scale Level of Conciousness: Alert, keenly responsive Ask month/age: Answers both questions correctly. Open/close eyes, close hand: Performs both tasks correctly Best gaze horizontal: Normal Visual gooden: No visual loss Facial palsy: Normal symetrical movement Left arm drift: No drift for full 10 sec Right arm drift: Drifts down, not to bed Left leg drift: No drift for full 5 sec Right leg drift: Drifts down, not to bed Limb ataxia: Absent Sensory on face/arms/legs: Normal, no sensory loss Best language: No aphasia, normal Dysarthria: Normal Extinction or inattention: No abnormality Total NIH Stroke scale score: 2 Course Orders Ordered: ED Orders 10/06/23 13:18 Complete Blood Count AUTO DIFF Stat Comprehensive Metabolic Panel Stat Magnesium Stat PTT Partial Thromboplastin Jasepr Stat Prothrombin Time INR Stat Troponin & CK Cardiac Panel Stat 10/06/23 13:41 CT head/brain wo con Stat XR chest 1V Stat Urine Drug Screen, Rapid Stat 10/06/23 13:51 CT angio head and neck Stat 10/06/23 14:24 EKG-12 Lead Stat Acetaminophen (Acetaminophen 325 Mg Tablet) 650 mg PO Q6H PRN PRN Reason: Fever/Mild Pain (1-3) Aspirin (Aspirin Ec 81 Mg Tablet) 81 mg PO DAILY PITER Atorvastatin Calcium (Atorvastatin 20 Mg Tablet) 40 mg PO BEDTIME [facility] Enoxaparin Sodium (Enoxaparin 40 Mg/0.4 Ml Syringe) 40 mg SUBCUT DAILY [facility] Dextrose (D10w) 100 mls @ 1,200 mls/hr IV PRN PRN PRN Reason: Hypoglycemia Insulin Human Lispro (Insulin Lispro 100 Unit/Ml 3ml Vial) 0 unit SUBCUT ACHS [facility]; Protocol Last Admin: 10/06/23 17:37 Dose: Not Given Documented By: AIDEE Labetalol HCl (Labetalol 20 Mg/4 Ml Syringe) 10 mg IV Q5MIN PRN PRN Reason: SBP >220 or DBP >110 Levothyroxine Sodium (Levothyroxine 100 Mcg Tablet) 200 mcg PO DAILY [facility] Lorazepam (Lorazepam 2 Mg/Ml Inj) 2 mg IV PRN PRN PRN Reason: MRI Melatonin (Melatonin 3 Mg Tablet) 6 mg PO BEDTIME PRN PRN Reason: Insomnia Naloxone HCl (Naloxone 0.4 Mg/Ml Vial) 0.2 mg IV Q2MIN PRN PRN Reason: Opiate Reversal Ondansetron HCl (Ondansetron 4 Mg/2 Ml Inj) 4 mg IV NOW PRN PRN Reason: Nausea And Vomiting Ondansetron HCl (Ondansetron 4 Mg Odt) 4 mg SL NOW PRN PRN Reason: Nausea And Vomiting Ondansetron HCl (Ondansetron 4 Mg/2 Ml Inj) 4 mg IV Q4HR PRN PRN Reason: Nausea And Vomiting Oxycodone/Acetaminophen (Oxycodone/Acetaminophen 5/325 Tablet) 1 tab PO Q4H PRN PRN Reason: Pain (Scale Score 7-10) Zolpidem Tartrate (Zolpidem 5 Mg Tablet) 10 mg PO BEDTIME PITER Discontinued Medications Aspirin (Aspirin Ec 325 Mg Tablet) 325 mg PO NOW ONE Stop: 10/06/23 15:14 Last Admin: 10/06/23 15:26 Dose: 325 mg Documented By: AC Vital Signs Vital signs: Vital Signs - 8 hr 10/06/23 13:44 10/06/23 14:13 10/06/23 14:13 Temperature 98.3 F Pulse Rate 55 L 54 L Respiratory Rate 17 19 Blood Pressure 172/92 H 182/85 H Pulse Oximetry 98 99 Oxygen Delivery Method Room Air 10/06/23 14:30 10/06/23 14:30 10/06/23 15:00 Temperature Pulse Rate 49 L Respiratory Rate 19 Blood Pressure 162/86 H 168/84 H Pulse Oximetry 98 Oxygen Delivery Method 10/06/23 15:00 Temperature Pulse Rate 51 L Respiratory Rate 25 H Blood Pressure Pulse Oximetry 97 Oxygen Delivery Method MDM - Neuro Symptoms/Deficit Differential Diagnosis Differential diagnosis: Likely subarachnoid hemorrhage, cerebrovascular accident and multiple sclerosis Lab Data 10/06/23 13:18 10/06/23 13:18 Labs: Lab Results 10/06/23 Range/Units 13:18 WBC 4.7 (4.5-11.0) X10^3/uL RBC 5.79 (4.5-5.9) X10^6/uL Hgb 16.2 (13.5-17.5) g/dL Hct 48.1 (41-53) % MCV 83.0 (80-100) fL MCH 28.0 (26-34) PG MCHC 33.7 (30-36) % RDW 15.8 H (11.6-14.8) % Plt Count 219 (150-400) X10^3/uL Neut % (Auto) 58.5 (50-75) % Lymph % (Auto) 28.5 (25-40) % [place] % (Auto) 8.7 (3-14) % Eos % (Auto) 3.7 (2-4) % Baso % (Auto) 0.6 (0-2) % Neut # (Auto) 2700 (7759-7856) /uL Lymph # (Auto) 1300 (9876-2218) /uL [place] # (Auto) 400 (0-900) /uL Eos # (Auto) 200 (0-450) /uL Baso # (Auto) 0 (0-100) /uL PT 10.2 (9.4-12.5) SECONDS INR 0.9 (0.9-1.3) APTT 38 H (25.1-36.5) SECONDS Sodium 138 (137-145) mmol/L Potassium 4.5 (3.4-5.1) mmol/L Chloride 103 (98-107) mmol/L Carbon Dioxide 23 (22-32) mmol/L BUN 21 H (9-20) mg/dL Creatinine 0.77 (0.66-1.25) mg/dL Estimated GFR > 60 (>60) mL/min BUN/Creatinine Ratio 27.3 H (6-22) Glucose 192 H (80-110) mg/dL Calcium 9.9 (8.4-10.2) mg/dL Magnesium 2.1 (1.6-2.3) mg/dL Total Bilirubin 0.6 (0.2-1.3) mg/dL AST 27 (17-59) IU/L ALT 24 (<50) IU/L Alkaline Phosphatase 61 (38-126) U/L Total Creatine Kinase 81 (55-170) U/L Troponin I < 0.012 (0.01-0.034) ng/mL Total Protein 8.7 H (6.3-8.2) g/dL Albumin 4.9 (3.5-5.0) g/dL Globulin 3.8 (1.7-4.1) g/dL Albumin/Globulin Ratio 1.3 (1.0-2.8) Triglycerides 266 H (35-150) mg/dL Cholesterol 231 H (140-199) mg/dL LDL Cholesterol, Calc 129 H (<100) mg/dL HDL Cholesterol 49 (40-60) mg/dL Point of Care Testing Glucose POC 124 MDM Narrative Medical decision making narrative: Greater than 12 hours of right upper and lower extremity weakness. Patient states he feels dizzy, but is noted to ambulate without ataxia. He does have noticeable upper and lower right-sided weakness compared to the left. Concern is for stroke, however he has not a candidate for tPA or T in case due to onset greater than 4 hours ago, and his symptoms are mild enough that he would not be a large vessel occlusion patient Laboratory work is reviewed. No obvious deficits noted on noncontrast CT brain and no significant stenosis noted on CT angio of the head and neck. Patient resting comfortably in bed, still endorsing right-sided upper and lower extremity weakness. Patient given full-dose baby aspirin and we will admit for stroke evaluation. Stroke Core Measures Exclusion Criteria TPA in CVA: Symptom Onset >3 or 4.5 Hours Discharge Plan Departure Admit Date/Time: 10/06/23 15:24 Admit Provider: Chinmay Pierce
--- NOTE | 2023-10-06 13:51 | DI.CT.S_ITS ---
PROCEDURE: CT ANGIO HEAD AND NECK INDICATIONS: R SIDED WEAKNESS X 14 HRS TECHNIQUE: After the administration of intravenous contrast, 1 mm thick sections acquired from the aortic arch through the [place] of [place]. MIP reformats of the arterial vasculature were utilized. For radiation dose reduction, the following was used: automated exposure control, adjustment of mA and/or kV according to patient size. COMPARISON: None. FINDINGS: Cerebral CT Angiogram: Internal carotid arteries: No acute findings. Intracranial ICA are patent with no significant stenosis. No occlusion. No aneurysm. Anterior cerebral arteries: Unremarkable. No significant stenosis. No occlusion. No aneurysm. Middle cerebral arteries: Unremarkable. No significant stenosis. No occlusion. No aneurysm. 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 The P2 segment is supplied by a widely patent posterior communicating artery. Remainder of the distal vasculature unremarkable. Basilar artery: Unremarkable. No significant stenosis. No occlusion. No aneurysm. Vertebral arteries: Unremarkable as visualized. Left vertebral dominance. Diminutive right vertebral artery terminates in the posterior inferior cerebellar artery Dural venous sinuses: Unremarkable given phase of enhancement. Other: Arterial phase brain parenchyma is unremarkable. Maxillary mucosal sinus disease without remodeling Neck CT Angiogram: Internal carotid arteries: Mild atherosclerotic plaque in the proximal ICA noted without hemodynamically significant stenosis Common carotid arteries: Unremarkable. No significant stenosis. No dissection or occlusion. External carotid arteries: Unremarkable. No occlusion. Vertebral arteries: Unremarkable. No significant stenosis. No dissection or occlusion. Other: Degenerative disc disease and arthropathy in the cervical spine Aortic Arch and Mediastinum: Partially visualized aortic arch unremarkable without evidence of aneurysm. Origins of the great vessels unremarkable. IMPRESSION: 1. No evidence of large vessel occlusion, aneurysm or vascular malformation 2. Incidental maxillary mucosal sinus disease, cervical degenerative disc disease and arthropathy Approved by: Rohit Doll M.D. on 10/06/2023 at 13:36
[2023-10-06 14:06] LABS: Add Manual Diff / Slide Review NO; Basophils Absolute Auto 0 /uL (0-100); Basophils Percent Auto 0.6 % (0-2); Eosinophils Absolute Auto 200 /uL (0-450); Eosinophils Percent Auto 3.7 % (2-4); Hematocrit 48.1 % (41-53); Hemoglobin 16.2 g/dL (13.5-17.5); Lymphocytes Absolute Auto 1300 /uL (1100-4500); Lymphocytes Percent Auto 28.5 % (25-40); Mean Corpuscular HGB Conc 33.7 % (30-36); Monocytes Absolute Auto 400 /uL (0-900); Monocytes Percent Auto 8.7 % (3-14); Neutrophils Absolute Auto 2700 /uL (1500-7000); Neutrophils Percent Auto 58.5 % (50-75); Platelet Count 219 X10^3/uL (150-400); Red Blood Cell Count 5.79 X10^6/uL (4.5-5.9); Red Cell Distribution Width 15.8 % (11.6-14.8); White Blood Cell Count 4.7 X10^3/uL (4.5-11.0)
[2023-10-06 14:14] LABS: INR 0.9 (0.9-1.3); Prothrombin Time 10.2 SECONDS (9.4-12.5)
[2023-10-06 14:16] LABS: PTT Partial Thromboplastin Tim 38 SECONDS (25.1-36.5)
[2023-10-06 14:18] LABS: Alanine Aminotransferase 24 IU/L (<50); Albumin 4.9 g/dL (3.5-5.0); Albumin Globulin Ratio 1.3 (1.0-2.8); Alkaline Phosphatase 61 U/L (38-126); Aspartate Aminotransferase 27 IU/L (17-59); BUN Creatinine Ratio 27.3 (6-22); Bilirubin Total 0.6 mg/dL (0.2-1.3); Blood Urea Nitrogen 21 mg/dL (9-20); Calcium 9.9 mg/dL (8.4-10.2); Carbon Dioxide 23 mmol/L (22-32); Chloride 103 mmol/L (98-107); Creatine Kinase 81 U/L (55-170); Estimated Glomerular Filt Rate > 60 mL/min (>60); Globulin 3.8 g/dL (1.7-4.1); Glucose 192 mg/dL (80-110); HEMOLYSIS < 15 (0-50); Magnesium 2.1 mg/dL (1.6-2.3); Potassium 4.5 mmol/L (3.4-5.1); Sodium 138 mmol/L (137-145); Total Protein 8.7 g/dL (6.3-8.2)
[2023-10-06 14:30] LABS: Troponin I < 0.012 ng/mL (0.01-0.034)
[2023-10-06] MEDS: ASPIRIN EC 325 MG TABLET PO (15:26)
--- NOTE | 2023-10-06 16:01 | P.HP_ITS ---
History of Present Illness History of Present Illness Date Patient Seen: 10/06/23 Chief complaint: possible stroke- dizzy, weakness, slurred speech Narrative: Gideon Oates is a 68yo M with PMH of HTN, DM2, JONELLE, hypothyroidism, multiple knee surgeries, insomnia and obesity who presents with R-sided weakness. 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 He didn't think much of it but then last night noticed some slurred speech and R arm weakness last night. He was brought in after his family became concerned. He currently states his speech is better. Right arm weakness is also improved. He says he has severe claustrophobia so will need to be knocked out for the MRI. He does not take an aspirin daily. He denies CP, SOB, visual changes, NV, abd pain or diarrhea. PFSH Medical History Osteoarthritis History of prosthetic unicompartmental arthroplasty of left knee (2017) Hypothyroidism Diabetes HTN (hypertension) JONELLE (obstructive sleep apnea) Viral URI Surgical History Status post PICC central line placement Hx of left knee surgery (01/29/23) Hx of left knee surgery (07/26/22) Hx of hand surgery Hx of arthroscopy of right knee Hx of arthroscopy of left knee Hx of tonsillectomy H/O vasectomy Hx of colonoscopy with polypectomy Hx of hernia repair Social History household members: none lives independently: Yes Smoking Status: Former smoker alcohol intake: former Meds Home Medications and Allergies Home Medications Medication Instructions Recorded Confirmed Type amlodipine 5 mg tablet 5 mg PO DAILY 07/13/22 10/06/23 History empagliflozin 25 mg tablet 25 mg PO DAILY 07/13/22 10/06/23 History (Jardiance) levothyroxine 200 mcg tablet 200 mcg PO DAILY 07/13/22 10/06/23 History metformin 500 mg tablet 2,000 mg PO QAM 07/13/22 10/06/23 History acetaminophen 325 mg tablet 650 mg (2 x 325 mg) PO Q6H #60 tabs 06/09/23 10/06/23 Rx empagliflozin 25 mg tablet 25 mg PO DAILY 10/06/23 10/06/23 History (Jardiance) hydrochlorothiazide 50 mg tablet 50 mg PO DAILY 10/06/23 10/06/23 History oxycodone-acetaminophen 5 mg-325 1 tab PO Q4-6H PRN Pain (Scale 10/06/23 10/06/23 History mg tablet Score 7-10) zolpidem 10 mg tablet 10 mg PO ONCE PM 10/06/23 10/06/23 History Allergies Allergy/AdvReac Type Severity Reaction Status Date / Time No Known Drug Allergies Allergy Verified 10/06/23 13:55 Review of Systems Review of Systems Narrative: All other systems reviewed with the patient and are negative unless otherwise stated. Exam Vital Signs (past 8 hours): - 10/06/23 13:44 10/06/23 14:13 10/06/23 14:13 Temperature 98.3 F Pulse Rate 55 L 54 L Respiratory Rate 17 19 Blood Pressure 172/92 H 182/85 H Pulse Oximetry 98 99 Oxygen Delivery Method Room Air 10/06/23 14:30 10/06/23 14:30 Temperature Pulse Rate 49 L Respiratory Rate 19 Blood Pressure 162/86 H Pulse Oximetry 98 Oxygen Delivery Method Oxygen Delivery Method Room Air Narrative Exam Narrative: GEN: no acute distress HEENT: moist mucous membranes, PERRL NECK: trachea midline, no JVD CV: regular rate and rhythm, no murmurs PULM: clear bilaterally ABD: soft, nontender, nondistended, no organomegaly EXT: warm and well perfused with no edema NEURO: awake, alert, oriented, slight R arm weakness, no facial droop Objective Labs 10/06/23 13:18 10/06/23 13:18 Labs: Laboratory Results - last 24 hr 10/06/23 13:18 WBC 4.7 RBC 5.79 Hgb 16.2 Hct 48.1 MCV 83.0 MCH 28.0 MCHC 33.7 RDW 15.8 H Plt Count 219 Neut % (Auto) 58.5 Lymph % (Auto) 28.5 [place] % (Auto) 8.7 Eos % (Auto) 3.7 Baso % (Auto) 0.6 Neut # (Auto) 2700 Lymph # (Auto) 1300 [place] # (Auto) 400 Eos # (Auto) 200 Baso # (Auto) 0 PT 10.2 INR 0.9 APTT 38 H Sodium 138 Potassium 4.5 Chloride 103 Carbon Dioxide 23 BUN 21 H Creatinine 0.77 Estimated GFR > 60 BUN/Creatinine Ratio 27.3 H Glucose 192 H Calcium 9.9 Magnesium 2.1 Total Bilirubin 0.6 AST 27 ALT 24 Alkaline Phosphatase 61 Total Creatine Kinase 81 Troponin I < 0.012 Total Protein 8.7 H Albumin 4.9 Globulin 3.8 Albumin/Globulin Ratio 1.3 Assessment & Plan Assessment & Plan narrative: # stroke rule out -patient's NIH in ED 4 -start aspirin daily -start lipitor 40 nightly -MRI brain ordered, ativan IV for claustrophobia -echo ordered -tele # hypertension -hold home amlodipine, HCTZ for 24 hours # type 2 diabetes -hold home metformin, jardiance -low dose SSI -check A1c #insomnia -ambien nightly # hypothyroidism -continue synthroid -TSH normal Code status is full code. DVT prophylaxis with Lovenox. Proxy is daughter Tamiko. I have reviewed home meds and used all available resources to reconcile the home meds. Case discussed with ED physician/APC and patient will be admitted to the hospitalist service for further workup and management. This patient will be admitted as observation and will require less than 2 midnights of hospital time to treat stroke rule out.
[2023-10-06 16:05] LABS: Cholesterol 231 mg/dL (140-199); HDL Cholesterol 49 mg/dL (40-60); LDL Cholesterol Calculated 129 mg/dL (<100); Triglycerides 266 mg/dL (35-150)
[2023-10-06 16:36] LABS: TSH w/ Reflex to FT4 3.59 uIU/mL (0.47-4.68)
[2023-10-06] MEDS: ATORVASTATIN 20 MG TABLET 40 MG PO (20:27)
[2023-10-06] MEDS: ZOLPIDEM 5 MG TABLET 10 MG PO (20:27)
[2023-10-07] VITALS: BP 127/75; PULSE 58; RESP 16; TEMP 37.1; O2SAT 99
--- NOTE | 2023-10-07 02:34 | PC.NURSE ---
SB on tele. Lowest HR is 43. Notified Dr Borrego, no orders at this time. Will continue to monitor
[2023-10-07 04:38] VITALS: BP 125/76; PULSE 51; RESP 16; TEMP 36.5; O2SAT 99
[2023-10-07 04:52] LABS: Add Manual Diff / Slide Review NO; Basophils Absolute Auto 100 /uL (0-100); Basophils Percent Auto 2.5 % (0-2); Eosinophils Absolute Auto 200 /uL (0-450); Eosinophils Percent Auto 3.9 % (2-4); Hematocrit 42.9 % (41-53); Hemoglobin 14.6 g/dL (13.5-17.5); Lymphocytes Absolute Auto 2000 /uL (1100-4500); Lymphocytes Percent Auto 34.6 % (25-40); Mean Corpuscular Hemoglobin 27.8 PG (26-34); Mean Corpuscular Volume 81.8 fL (80-100); Monocytes Absolute Auto 500 /uL (0-900); Monocytes Percent Auto 8.7 % (3-14); Neutrophils Absolute Auto 2900 /uL (1500-7000); Neutrophils Percent Auto 50.3 % (50-75); Platelet Count 214 X10^3/uL (150-400); Red Blood Cell Count 5.24 X10^6/uL (4.5-5.9); Red Cell Distribution Width 16.1 % (11.6-14.8); White Blood Cell Count 5.7 X10^3/uL (4.5-11.0)
[2023-10-07 05:08] LABS: Blood Urea Nitrogen 21 mg/dL (9-20); Carbon Dioxide 22 mmol/L (22-32); Chloride 104 mmol/L (98-107); Estimated Glomerular Filt Rate > 60 mL/min (>60); Glucose 147 mg/dL (80-110); HEMOLYSIS < 15 (0-50); Potassium 3.9 mmol/L (3.4-5.1); Sodium 136 mmol/L (137-145)
[2023-10-07 08:00] VITALS: BP 121/66; PULSE 54; RESP 20; TEMP 36.3; O2SAT 97
--- NOTE | 2023-10-07 08:00 | DI.ECHO.S_ITS ---
[facility] +---------+ : : [address] : : : : [place], : : : : [place] [id number] : : : : Phone: [phone] [facility]-2757 Echocardiogram Report + + :Name: MUSA HAYES Study Date: 10/07/2023 Height: 68 in : :[facility] ReadingLocation: Weight: 207 lb : : Gender: Male BSA: 2.1 m2 : :: 1955 Age: 68 yrs BP: 125/76 mmHg: :Reason For Study: CVA : : Performed By: Ele Mills : :Referring: MECHELLE SUAREZ A : + + Interpretation Summary 1) Normal left ventricular thickness, size, wall motion, and systolic function (EF 60-65%). 2) Normal right ventricular size and function. 3) No significant valvular abnormalities. 4) Doppler interrogation and injection of saline echo contrast shows no evidence for an interatrial shunt. 5) Compared to the Echo done 06/07/2023, no significant change. Procedure: A two-dimensional transthoracic echocardiogram with color flow and Doppler was performed. The study quality was technically adequate. Comparison is made with the echocardiogram of 06-07-23. A saline contrast injection was performed to assess for cardiac shunting. The heart rate ranged between 52-59 bpm during the study. Left Ventricle: The left ventricle is normal in size and wall thickness. The ejection fraction is estimated to be 60-65%. Left ventricular systolic function appears normal without focal wall motion abnormalities. Diastolic function could not be accurately assessed due to contradictory data. Right Ventricle: The right ventricle grossly appears normal in size with probable normal systolic function. Atria: The left atrium is moderately dilated. Right atrial size is normal. Bubble study was captured on image frame(s) # 79 and 80. Doppler interrogation and injection of saline echo contrast shows no evidence for an interatrial shunt. Mitral Valve: The mitral valve is normal in structure and function. There is no mitral regurgitation noted. Aortic Valve: The aortic valve opens well. There is no hemodynamically significant valvular aortic stenosis. No aortic regurgitation is present. Tricuspid Valve: The tricuspid valve is normal in structure and function. No tricuspid regurgitation. Pulmonic Valve: The pulmonic valve is not well seen, but is grossly normal. There is no pulmonic valvular regurgitation. Great Vessels: The aortic root is normal size. The ascending aorta is normal in size. The aortic arch is normal in size. The IVC is of normal diameter and collapses greater than 50% with a sniff. This suggests a low right atrial pressure of 3 mm Hg. Pericardium/ Pleura There is no pericardial effusion. There is no pleural effusion. MMode/2D Measurements & Calculations LVIDd: 5.4 cm AoV Openin.8 cm LVIDs: 3.3 cm LVOT diam: 2.0 cm IVSd: 1.1 cm Ao root diam: 3.6 cm LVPWd: 0.80 cm asc Aorta Diam: 3.3 cm LV cintron. diameter/BSA (cm/m^2): 2.6 Ao Arch Diam (Prox Trans): 2.7 cm LV sys. diameter/BSA (cm/m^2): 1.6 FS: 38.1 % EPSS: 0.57 cm LA A2 area: 24.8 cm2 RA long axis: 5.8 cm LA A4 area: 22.9 cm2 RA area: 17.1 cm2 LA length (vol): 6.1 cm RA vol: 42.6 ml LA vol: 79.6 ml RA : 20.5 ml/m2 LA vol index: 38.4 ml/m2 RVD1 (basal): 2.7 cm IVC diam: 1.9 cm TAPSE: 2.6 cm Doppler Measurements & Calculations Ao V2 max: 161.0 cm/sec LVOT Max Armando: 86.6 cm/sec Ao V2 mean: 91.5 cm/sec LV V1 max P.0 mmHg Ao V2 VTI: 34.2 cm LV V1 VTI: 19.3 cm Ao max P.4 mmHg Ao mean P.3 mmHg NICOLE(I,D): 1.8 cm2 MV E max armando: 73.8 cm/sec NICOLE(V,D): 1.7 cm2 MV A max armando: 73.8 cm/sec NICOLE indexed to BSA (cm^2/m^2): 0.86 MV E/A: 1.0 sev ratio: 0.56 Med Peak E' Armando: 6.4 cm/sec E/E' med: 11.4 Lat Peak E' Armando: 7.8 cm/sec E/E' lat: 9.5 E/e' average: 10.5 MV dec time: 0.27 sec PA V2 max: 88.9 cm/sec PA V2 mean: 65.9 cm/sec PA mean P.9 mmHg PA pr(Accel): 36.2 mmHg SV(LVOT): 61.0 ml Reading Physician:10:16 AM
[2023-10-07] MEDS: INSULIN LISPRO 100 UNIT/ML 3ML VIAL SUBCUT (08:13)
[2023-10-07] MEDS: ENOXAPARIN 40 MG/0.4 ML SYRINGE SUBCUT (08:15)
[2023-10-07] MEDS: ASPIRIN EC 81 MG TABLET PO (08:15)
[2023-10-07] MEDS: LEVOTHYROXINE 100 MCG TABLET 200 MCG PO (08:16)
[2023-10-07] MEDS: CLOPIDOGREL 75 MG TABLET PO (08:16)
--- NOTE | 2023-10-07 09:36 | P.DS_ITS ---
History of Present Illness History of Present Illness Date Patient Seen: 10/07/23 Time Patient Seen: 09:36 Chief complaint: possible stroke- dizzy, weakness, slurred speech Narrative: Per admitting provider, Gideon Oates is a 68yo M with PMH of HTN, DM2, JONELLE, hypothyroidism, multiple knee surgeries, insomnia and obesity who presents with R-sided weakness. 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 He didn't think much of it but then last night noticed some slurred speech and R arm weakness last night. He was brought in after his family became concerned. He currently states his speech is better. Right arm weakness is also improved. He says he has severe claustrophobia so will need to be knocked out for the MRI. He does not take an aspirin daily. He denies CP, SOB, visual changes, NV, abd pain or diarrhea. Discharge Providers Provider Date of admission: 10/06/23 15:24 Discharge Date: 10/07/23 Primary care physician: Jose Adams MD Consults: 10/06/23 15:45 Consult to Occupational Therapy Evaluate & Treat Comment: Physician Instructions: Evaluate and treat Consult to Physical Therapy Evaluate & Treat Comment: Physician Instructions: Evaluate and Treat Discharge provider: Devin Crespo DO Summary Hospital Course Discharge Diagnosis: # TIA or CVA # hypertension # type 2 diabetes #insomnia # hypothyroidism Hospital Course: This is a 68 year old male who was admitted for further evaluation of R sided weakness which continued to improve over the course of his stay. He reported at most mild numbness in the tips of his fingers on the R at the time of discharge. He reported improvement to normal with regards to his strength. Echocardiogram was unremarkable, with normal EF and no PFO. Telemetry was also unremarkable. Patient refused MRI, stating he needed complete sedation. Benzodiazepines were offered for claustrophobia, but patient continued to refuse MRI. Patient was treated as a presumed TIA or stroke, and MRI would not change medical management at this time so risk of sedation outweighed potential benefits at this time. Given low NIH score on presentation he was discharged with DAPT, and statin therapy. Plavix will stop after 20 days, with asa an statin to continue lifelong. With resolution of his symptoms further evaluation with possible holter monitor recommended with PCP. He was advised to follow up as soon as possible after discharge with primary care. Time Spent with Patient Time spent: Greater than 30 minutes Exam Vital Signs (past 8 hours): - 10/07/23 04:38 10/07/23 08:00 Temperature 97.7 F 97.3 F L Pulse Rate 51 L 54 L Respiratory Rate 16 20 Blood Pressure 125/76 121/66 Pulse Oximetry 99 97 Oxygen Flow Rate 0 0 Oxygen Delivery Method Room Air Oxygen Flow Rate 0 Narrative Exam Narrative: GEN: no acute distress HEENT: moist mucous membranes, PERRL NECK: trachea midline, no JVD CV: regular rate and rhythm, no murmurs PULM: clear bilaterally ABD: soft, nontender, nondistended, no organomegaly EXT: warm and well perfused with no edema NEURO: awake, alert, oriented, R strength +5/5, no deficits in sensation reported to light touch. Objective Labs 10/07/23 04:40 10/07/23 04:40 Labs: Laboratory Results - last 24 hr 10/06/23 10/06/23 10/07/23 13:18 15:56 04:40 WBC 4.7 5.7 RBC 5.79 5.24 Hgb 16.2 14.6 Hct 48.1 42.9 MCV 83.0 81.8 MCH 28.0 27.8 MCHC 33.7 34.0 RDW 15.8 H 16.1 H Plt Count 219 214 Neut % (Auto) 58.5 50.3 Lymph % (Auto) 28.5 34.6 [place] % (Auto) 8.7 8.7 Eos % (Auto) 3.7 3.9 Baso % (Auto) 0.6 2.5 H Neut # (Auto) 2700 2900 Lymph # (Auto) 1300 2000 [place] # (Auto) 400 500 Eos # (Auto) 200 200 Baso # (Auto) 0 100 PT 10.2 INR 0.9 APTT 38 H Sodium 138 136 L Potassium 4.5 3.9 Chloride 103 104 Carbon Dioxide 23 22 BUN 21 H 21 H Creatinine 0.77 0.70 Estimated GFR > 60 > 60 BUN/Creatinine Ratio 27.3 H 30.0 H Glucose 192 H 147 H Calcium 9.9 9.0 Magnesium 2.1 Total Bilirubin 0.6 AST 27 ALT 24 Alkaline Phosphatase 61 Total Creatine Kinase 81 Troponin I < 0.012 Total Protein 8.7 H Albumin 4.9 Globulin 3.8 Albumin/Globulin Ratio 1.3 Triglycerides 266 H Cholesterol 231 H LDL Cholesterol, Calc 129 H HDL Cholesterol 49 TSH 3.59 PFSH Medical History Osteoarthritis History of prosthetic unicompartmental arthroplasty of left knee (2018) Hypothyroidism Diabetes HTN (hypertension) JONELLE (obstructive sleep apnea) Viral URI Surgical History Status post PICC central line placement Hx of left knee surgery (01/29/23) Hx of left knee surgery (07/26/22) Hx of hand surgery Hx of arthroscopy of right knee Hx of arthroscopy of left knee Hx of tonsillectomy H/O vasectomy Hx of colonoscopy with polypectomy Hx of hernia repair Social History household members: none lives independently: Yes Smoking Status: Former smoker alcohol intake: former Discharge Plan Discharge Plan Patient Disposition: Home Provider Discharge Comment: You were admitted to the hospital with a small stroke or TIA. These are treated the exact same with aspirin and statin for the remainder of your life. to lower the risk of another stroke, plavix (medication like aspirin) is added for 3 weeks as well but then stopped. Continue to check your BP at home, follow up with PCP as soon as possible after discharge to review medication changes and recheck BP after your stroke. Discharge orders & Medications Prescriptions: New aspirin [Blossom Low Dose Aspirin] 81 mg tablet,delayed release (DR/EC) 81 mg PO DAILY 90 Days Qty: 90 0RF clopidogrel 75 mg tablet 75 mg PO DAILY 20 Days Qty: 20 0RF atorvastatin 80 mg tablet 80 mg PO BEDTIME 90 Days Qty: 90 0RF Continued metformin 500 mg Tablet 2,000 mg PO QAM amlodipine 5 mg Tablet 5 mg PO DAILY levothyroxine 200 mcg Tablet 200 mcg PO DAILY Jardiance 25 mg Tablet 25 mg PO DAILY hydrochlorothiazide 50 mg tablet 50 mg PO DAILY oxycodone-acetaminophen 5-325 mg tablet 1 tab PO Q4-6H PRN (Reason: Pain (Scale Score 7-10)) zolpidem 10 mg tablet 10 mg PO ONCE PM acetaminophen 325 mg Tablet 650 mg PO Q6H Qty: 60 0RF Discontinued Jardiance 25 mg tablet 25 mg PO DAILY Follow up/Referrals: Jose Adams MD [Primary Care Provider] - 3-5 Days Diet/Activity/Treatments Diet: Diet as Tolerated and Regular Activity: As tolerated, no restrictions Visit Report/Discharge Packet Stand Alone Forms: Congestive Heart Failure, Patient Portal/API, Stroke Signs & Symptoms Discharge Data Primary Care Provider: Jose Adams Attending Provider: Chinmay Pierce Admit Date/Time: 10/06/23 15:24 Quality VTE Deep Vein Thrombosis/Pulmonary Embolism Present on Admission: No
--- NOTE | 2023-10-07 10:00 | PC.NURSE ---
alert and oriented no weakness or sx of cva denies mri secondary to clastrophobia and wants to be put out. echo done plan for dc home
[2023-10-08 03:36] LABS: x Labcorp Estim. Avg Glu (eAG) 212 mg/dL (.)
== END 2023-10-07 11:30 | disposition home or self-care (01) ==
LOC: ED 13:46 → AC 15:25
PROVIDERS: Admitting Provider Student in an Organized Health Care Education/Training Program; Emergency Provider Emergency Medicine; Family Provider Family Medicine; PCP Family Medicine; Referring Provider Emergency Medicine; Visit Provider Student in an Organized Health Care Education/Training Program
DX: R53.1 Weakness (principal); R47.81 Slurred speech; R42 Dizziness and giddiness; R29.702 NIHSS score 2; I10 Essential (primary) hypertension; E11.9 Type 2 diabetes mellitus without complications; G47.33 Obstructive sleep apnea (adult) (pediatric); E03.9 Hypothyroidism, unspecified; G47.00 Insomnia, unspecified; Z79.84 Long term (current) use of oral hypoglycemic drugs
CPT/HCPCS: 36415; 70450; 70496; 70498; 71045; 80048; 80053; 80061; 82550; 82962; 83036; 83735; 84443; 84484; 85025; 85610; 85730; 93005; 93010; 93306; 96372; 99285; G0378; J1650; J1815; Q9967

== ENCOUNTER → 2024-04-02 12:20 | Outpatient (CLI) | payer MEDICARE, BC, SELFPAY ==
[2023-10-06 16:45] VITALS: BMI 32.0
[2024-04-02 13:39] LABS: Add Manual Diff / Slide Review NO; Basophils Absolute Auto 100 /uL (0-100); Basophils Percent Auto 1.2 % (0-2); Eosinophils Absolute Auto 100 /uL (0-450); Eosinophils Percent Auto 2.8 % (2-4); Hematocrit 45.2 % (41-53); Hemoglobin 15.2 g/dL (13.5-17.5); Lymphocytes Absolute Auto 1400 /uL (1100-4500); Lymphocytes Percent Auto 27.8 % (25-40); Mean Corpuscular HGB Conc 33.8 % (30-36); Mean Corpuscular Hemoglobin 29.2 PG (26-34); Mean Corpuscular Volume 86.4 fL (80-100); Monocytes Absolute Auto 400 /uL (0-900); Monocytes Percent Auto 7.8 % (3-14); Neutrophils Absolute Auto 3100 /uL (1500-7000); Neutrophils Percent Auto 60.4 % (50-75); Platelet Count 202 X10^3/uL (150-400); Red Blood Cell Count 5.23 X10^6/uL (4.5-5.9); White Blood Cell Count 5.2 X10^3/uL (4.5-11.0)
[2024-04-02 14:46] LABS: Alanine Aminotransferase 20 IU/L (<50); Albumin 4.2 g/dL (3.5-5.0); Albumin Globulin Ratio 1.6 (1.0-2.8); Alkaline Phosphatase 47 U/L (38-126); Aspartate Aminotransferase 19 IU/L (17-59); BUN Creatinine Ratio 36.6 (6-22); Bilirubin Total 0.6 mg/dL (0.2-1.3); Blood Urea Nitrogen 30 mg/dL (9-20); Calcium 9.4 mg/dL (8.4-10.2); Carbon Dioxide 24 mmol/L (22-32); Chloride 102 mmol/L (98-107); Cholesterol 247 mg/dL (140-199); Estimated Glomerular Filt Rate > 60 mL/min (>60); Globulin 2.7 g/dL (1.7-4.1); Glucose 255 mg/dL (80-110); HDL Cholesterol 54 mg/dL (40-60); HEMOLYSIS < 15 (0-50); LDL Cholesterol Calculated 123 mg/dL (<100); Magnesium 1.9 mg/dL (1.6-2.3); Potassium 4.7 mmol/L (3.4-5.1); Sodium 135 mmol/L (137-145); Total Protein 6.9 g/dL (6.3-8.2); Triglycerides 348 mg/dL (35-150)
[2024-04-02 15:15] LABS: Prostate Specific Antigen 3.82 ng/mL (0.10-4.00); Thyroid Stimulating Hormone 6.74 uIU/mL (0.47-4.68)
[2024-04-02 15:19] LABS: Testosterone 314 ng/dL (71.8-623)
[2024-04-02 15:34] LABS: Vitamin B12 393 pg/mL (239-931)
[2024-04-02 15:40] LABS: Vitamin D 25 Hydroxy (D3) < 12.8 ng/mL (30.0-100.0)
== END ==
PROVIDERS: Family Provider Family Medicine; PCP Family Medicine; Referring Provider Family Medicine; Visit Provider Family Medicine
DX: E11.65 Type 2 diabetes mellitus with hyperglycemia (principal); Z79.899 Other long term (current) drug therapy; I10 Essential (primary) hypertension; M10.9 Gout, unspecified; R73.9 Hyperglycemia, unspecified; E78.2 Mixed hyperlipidemia; E29.1 Testicular hypofunction; E03.9 Hypothyroidism, unspecified; E66.9 Obesity, unspecified; E55.9 Vitamin D deficiency, unspecified; M12.89 Other specific arthropathies, not elsewhere classified, multiple sites
CPT/HCPCS: 36415; 80053; 80061; 82306; 82607; 83036; 83735; 84153; 84403; 84443; 85025

== ENCOUNTER → 2024-05-15 15:45 | Outpatient (CLI) | payer MEDICARE, BC, SELFPAY ==
[2023-10-06 16:45] VITALS: BMI 32.0
[2024-05-15 17:24] LABS: Add Manual Diff / Slide Review NO; Basophils Absolute Auto 100 /uL (0-100); Basophils Percent Auto 0.6 % (0-2); Eosinophils Absolute Auto 200 /uL (0-450); Eosinophils Percent Auto 2.4 % (2-4); Hematocrit 45.7 % (41-53); Hemoglobin 15.5 g/dL (13.5-17.5); Lymphocytes Absolute Auto 1600 /uL (1100-4500); Lymphocytes Percent Auto 19.6 % (25-40); Mean Corpuscular Hemoglobin 29.6 PG (26-34); Mean Corpuscular Volume 86.9 fL (80-100); Monocytes Absolute Auto 400 /uL (0-900); Monocytes Percent Auto 5.5 % (3-14); Neutrophils Absolute Auto 5800 /uL (1500-7000); Neutrophils Percent Auto 71.9 % (50-75); Platelet Count 224 X10^3/uL (150-400); Red Blood Cell Count 5.25 X10^6/uL (4.5-5.9); Red Cell Distribution Width 13.8 % (11.6-14.8)
[2024-05-15 17:39] LABS: Alanine Aminotransferase 22 IU/L (<50); Albumin 4.2 g/dL (3.5-5.0); Albumin Globulin Ratio 1.5 (1.0-2.8); Alkaline Phosphatase 59 U/L (38-126); Aspartate Aminotransferase 28 IU/L (17-59); BUN Creatinine Ratio 43.4 (6-22); Bilirubin Total 0.5 mg/dL (0.2-1.3); Blood Urea Nitrogen 36 mg/dL (9-20); Carbon Dioxide 26 mmol/L (22-32); Chloride 104 mmol/L (98-107); Cholesterol 232 mg/dL (140-199); Estimated Glomerular Filt Rate > 60 mL/min (>60); Globulin 2.8 g/dL (1.7-4.1); Glucose 238 mg/dL (80-110); HDL Cholesterol 47 mg/dL (40-60); HEMOLYSIS 21 (0-50); Potassium 4.4 mmol/L (3.4-5.1); Sodium 136 mmol/L (137-145); Triglycerides 523 mg/dL (35-150)
[2024-05-15 18:07] LABS: Thyroid Stimulating Hormone 12.9 uIU/mL (0.47-4.68)
[2024-05-15 18:09] LABS: Prostate Specific Antigen 2.95 ng/mL (0.10-4.00)
== END ==
LOC: LAB 15:47
PROVIDERS: Family Provider Family Medicine; PCP Family Medicine; Referring Provider Family Medicine; Visit Provider Family Medicine
DX: I10 Essential (primary) hypertension (principal); Z12.5 Encounter for screening for malignant neoplasm of prostate; E03.9 Hypothyroidism, unspecified; E11.65 Type 2 diabetes mellitus with hyperglycemia; R73.9 Hyperglycemia, unspecified; Z79.1 Long term (current) use of non-steroidal anti-inflammatories (NSAID); E78.2 Mixed hyperlipidemia; E66.9 Obesity, unspecified
CPT/HCPCS: 36415; 80053; 80061; 84153; 84443; 85025

== ENCOUNTER → 2024-09-24 12:02 | Outpatient (CLI) | payer MEDICARE, BC, SELFPAY ==
[2023-10-06 16:45] VITALS: BMI 32.0
[2024-09-24 13:13] LABS: Add Manual Diff / Slide Review NO; Basophils Absolute Auto 100 /uL (0-100); Basophils Percent Auto 1.4 % (0-2); Eosinophils Absolute Auto 200 /uL (0-450); Eosinophils Percent Auto 3.7 % (2-4); Hematocrit 48.5 % (41-53); Hemoglobin 16.3 g/dL (13.5-17.5); Lymphocytes Absolute Auto 1600 /uL (1100-4500); Lymphocytes Percent Auto 29.6 % (25-40); Mean Corpuscular HGB Conc 33.7 % (30-36); Mean Corpuscular Hemoglobin 29.3 PG (26-34); Mean Corpuscular Volume 87.1 fL (80-100); Monocytes Absolute Auto 500 /uL (0-900); Monocytes Percent Auto 8.4 % (3-14); Neutrophils Absolute Auto 3100 /uL (1500-7000); Neutrophils Percent Auto 56.9 % (50-75); Platelet Count 202 X10^3/uL (150-400); Red Blood Cell Count 5.57 X10^6/uL (4.5-5.9); Red Cell Distribution Width 14.6 % (11.6-14.8); White Blood Cell Count 5.5 X10^3/uL (4.5-11.0)
[2024-09-24 13:27] LABS: Hemoglobin A1C% w Est Avg Glu 11.5 % (4.0-6.0)
[2024-09-24 13:28] LABS: Alanine Aminotransferase 23 IU/L (<50); Albumin 4.6 g/dL (3.5-5.0); Albumin Globulin Ratio 1.6 (1.0-2.8); Alkaline Phosphatase 51 U/L (38-126); Aspartate Aminotransferase 27 IU/L (17-59); BUN Creatinine Ratio 15.7 (6-22); Bilirubin Total 0.7 mg/dL (0.2-1.3); Blood Urea Nitrogen 16 mg/dL (9-20); Calcium 9.5 mg/dL (8.4-10.2); Carbon Dioxide 25 mmol/L (22-32); Chloride 103 mmol/L (98-107); Cholesterol 223 mg/dL (140-199); Estimated Glomerular Filt Rate > 60 mL/min (>60); Globulin 2.9 g/dL (1.7-4.1); Glucose 215 mg/dL (80-110); HDL Cholesterol 43 mg/dL (40-60); HEMOLYSIS < 15 (0-50); LDL Cholesterol Calculated 109 mg/dL (<100); Potassium 4.5 mmol/L (3.4-5.1); Sodium 137 mmol/L (137-145); Total Protein 7.5 g/dL (6.3-8.2); Triglycerides 356 mg/dL (35-150); Uric Acid 3.7 mg/dL (3.5-8.5)
[2024-09-24 13:59] LABS: Thyroid Stimulating Hormone 3.72 uIU/mL (0.47-4.68)
[2024-09-24 14:17] LABS: Vitamin B12 540 pg/mL (239-931)
[2024-09-24 16:00] LABS: Vitamin D 25 Hydroxy (D3) < 12.8 ng/mL (30.0-100.0)
== END ==
PROVIDERS: Family Provider Family Medicine; PCP Family Medicine; Referring Provider Family Medicine; Visit Provider Family Medicine
DX: E03.9 Hypothyroidism, unspecified (principal); E11.65 Type 2 diabetes mellitus with hyperglycemia; E55.9 Vitamin D deficiency, unspecified; M10.9 Gout, unspecified; E78.2 Mixed hyperlipidemia; R73.9 Hyperglycemia, unspecified; Z13.29 Encounter for screening for other suspected endocrine disorder; D51.9 Vitamin B12 deficiency anemia, unspecified; Z13.220 Encounter for screening for lipoid disorders; Z13.228 Encounter for screening for other metabolic disorders; Z13.0 Encounter for screening for diseases of the blood and blood-forming organs and certain disorders involving the immune mechanism
CPT/HCPCS: 36415; 80053; 80061; 82306; 82607; 83036; 84443; 84550; 85025

== ENCOUNTER → 2024-11-13 11:56 | Outpatient (CLI) | payer MEDICARE, BC, SELFPAY ==
[2023-10-06 16:45] VITALS: BMI 32.0
[2024-11-13 12:26] LABS: Add Manual Diff / Slide Review NO; Basophils Absolute Auto 100 /uL (0-100); Basophils Percent Auto 1.4 % (0-2); Eosinophils Absolute Auto 200 /uL (0-450); Eosinophils Percent Auto 3.2 % (2-4); Hematocrit 47.6 % (41-53); Hemoglobin 16.1 g/dL (13.5-17.5); Lymphocytes Absolute Auto 2000 /uL (1100-4500); Lymphocytes Percent Auto 32.5 % (25-40); Mean Corpuscular HGB Conc 33.8 % (30-36); Mean Corpuscular Hemoglobin 29.5 PG (26-34); Mean Corpuscular Volume 87.3 fL (80-100); Monocytes Absolute Auto 400 /uL (0-900); Neutrophils Absolute Auto 3500 /uL (1500-7000); Neutrophils Percent Auto 55.9 % (50-75); Platelet Count 214 X10^3/uL (150-400); Red Blood Cell Count 5.46 X10^6/uL (4.5-5.9); Red Cell Distribution Width 14.9 % (11.6-14.8); White Blood Cell Count 6.2 X10^3/uL (4.5-11.0)
[2024-11-13 12:45] LABS: Hemoglobin A1C% w Est Avg Glu 10.1 % (4.0-6.0)
[2024-11-13 12:50] LABS: Alanine Aminotransferase 45 IU/L (<50); Albumin 4.8 g/dL (3.5-5.0); Albumin Globulin Ratio 1.8 (1.0-2.8); Alkaline Phosphatase 62 U/L (38-126); Aspartate Aminotransferase 45 IU/L (17-59); BUN Creatinine Ratio 20.8 (6-22); Bilirubin Total 0.8 mg/dL (0.2-1.3); Blood Urea Nitrogen 25 mg/dL (9-20); Calcium 9.9 mg/dL (8.4-10.2); Carbon Dioxide 27 mmol/L (22-32); Chloride 94 mmol/L (98-107); Estimated Glomerular Filt Rate > 60 mL/min (>60); Globulin 2.7 g/dL (1.7-4.1); Glucose 260 mg/dL (80-110); HDL Cholesterol 57 mg/dL (40-60); HEMOLYSIS < 15 (0-50); Potassium 4.7 mmol/L (3.4-5.1); Sodium 132 mmol/L (137-145); Total Protein 7.5 g/dL (6.3-8.2)
[2024-11-13 13:01] LABS: Cholesterol 392 mg/dL (140-199); Triglycerides 842 mg/dL (35-150)
[2024-11-13 13:14] LABS: Thyroid Stimulating Hormone 90.7 uIU/mL (0.47-4.68)
[2024-11-14 12:12] LABS: PSA Free % 26.4 % (.); PSA, Total 2.8 ng/mL (0.0-4.0)
== END ==
LOC: LAB 11:57
PROVIDERS: Family Provider Family Medicine; PCP Family Medicine; Referring Provider Family Medicine; Visit Provider Family Medicine
DX: E03.9 Hypothyroidism, unspecified (principal); E11.65 Type 2 diabetes mellitus with hyperglycemia; E78.2 Mixed hyperlipidemia; E29.1 Testicular hypofunction; I70.0 Atherosclerosis of aorta
CPT/HCPCS: 36415; 80053; 80061; 83036; 84153; 84154; 84443; 85025

== ENCOUNTER 2024-12-11 17:14 | Emergency (ER) | payer MEDICARE, BC, SELFPAY ==
[2023-10-06 16:45] VITALS: BMI 32.0
[2024-12-11 17:18] VITALS: BP 152/91; PULSE 71; RESP 18; TEMP 36.9; O2SAT 98; BMI 31.1
--- NOTE | 2024-12-11 18:36 | ED.GENADULT ---
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 Increasing abdominal pain. He has been straining and did try manual disimpaction but the stool is not low enough that he is able to get any out. He is passing gas. No fevers no vomiting Related Data Home Medications Medication Instructions Recorded Confirmed amlodipine 5 mg tablet 5 mg PO DAILY 07/13/22 10/06/23 empagliflozin 25 mg tablet 25 mg PO DAILY 07/13/22 10/06/23 (Jardiance) levothyroxine 200 mcg tablet 200 mcg PO DAILY 07/13/22 10/06/23 metformin 500 mg tablet 2,000 mg PO QAM 07/13/22 10/06/23 hydrochlorothiazide 50 mg tablet 50 mg PO DAILY 10/06/23 10/06/23 oxycodone-acetaminophen 5 mg-325 1 tab PO Q4-6H PRN Pain (Scale 10/06/23 10/06/23 mg tablet Score 7-10) zolpidem 10 mg tablet 10 mg PO ONCE PM 10/06/23 10/06/23 Previous Rx's Medication Instructions Recorded acetaminophen 325 mg tablet 650 mg (2 x 325 mg) PO Q6H #60 tabs 06/09/23 Allergies Allergy/AdvReac Type Severity Reaction Status Date / Time No Known Drug Allergies Allergy Verified 10/06/23 13:55 Review of Systems Review of Systems Narrative: Pertinent positive and negative findings as per HPI Patient History Medical History Osteoarthritis History of prosthetic unicompartmental arthroplasty of left knee (2018) Hypothyroidism Diabetes HTN (hypertension) JONELLE (obstructive sleep apnea) Viral URI Surgical History Status post PICC central line placement Hx of left knee surgery (01/29/23) Hx of left knee surgery (07/26/22) Hx of hand surgery Hx of arthroscopy of right knee Hx of arthroscopy of left knee Hx of tonsillectomy H/O vasectomy Hx of colonoscopy with polypectomy Hx of hernia repair Social History household members: none lives independently: Yes Smoking Status: Never smoker alcohol intake: former Smoking Status: Never smoker alcohol intake frequency: holidays/special occasions only Exam Initial Vital Signs Initial Vital Signs: Vital Signs Temperature 98.5 F 12/11/24 17:18 Pulse Rate 71 12/11/24 17:18 Respiratory Rate 18 12/11/24 17:18 Blood Pressure 152/91 H 12/11/24 17:18 Pulse Oximetry 98 12/11/24 17:18 Oxygen Delivery Method Room Air 12/11/24 17:18 General: Alert appropriate in no acute distress Respiratory: Able to speak in full sentences, no obvious respiratory distress Abdomen: Obese, slight distention no rebound or guarding Rectal exam: There is some hard stool that can be felt but it is quite high up in the rectal vault, not able to reach enough to do a manual disimpaction Skin: No obvious rashes, warm and dry Neurologic: Grossly intact no obvious asymmetries or abnormalities Psych: appropriate insight and affect, cooperative Course Orders Ordered: ED Orders 12/11/24 18:38 XR abdomen 1V Stat Discontinued Medications Mineral Oil (Mineral Oil 1 Each Enema) 1 each CO NOW ONE Stop: 12/11/24 18:36 Last Admin: 12/11/24 19:10 Dose: 1 each Documented By: LEO Vital Signs Vital signs: Vital Signs - 8 hr 12/11/24 17:18 Temperature 98.5 F Pulse Rate 71 Respiratory Rate 18 Blood Pressure 152/91 H Pulse Oximetry 98 Oxygen Delivery Method Room Air Medical Decision Making [facility] Narrative Medical decision making narrative: CC: 3 days of increasing abdominal pain, no bowel movements also notes some difficulty with voiding Complicating co-morbidities: Diabetes, prior strokes, most recent colonoscopy was about 3 years ago Data collected from: patient Medical records reviewed: Discharge summary from October 07 after stroke is reviewed Differential considered: Constipation, bowel obstruction, neoplastic process Exam documented above, pertinent findings include: Belly is slightly tender but not acute. Hard stool very high up in the rectum Imaging studies independently reviewed: Abdominal x-ray shows significant amount of stool, no bowel obstruction no free air Treatments: Enema with significant results Discussion: 69-year-old gentleman with no bowel movement for the last 3 days. Postvoid residual was at 589. After an enema he had a very large bowel movement and was able to void significantly as well. Feeling much better. Recommended MiraLax to continue for the next couple of days to make sure that his entire colon cleans out. There was no evidence of bowel obstruction, perforation or other consequence that would require additional workup or hospitalization and he is safe for discharge Discharge Plan Departure Patient Disposition: Home Clinical Impression: Constipation Qualifiers: Constipation type: unspecified constipation type Qualified Code(s): K59.00 - Constipation, unspecified Abdominal pain Qualifiers: Abdominal location: generalized Qualified Code(s): R10.84 - Generalized abdominal pain Instructions: DI for Constipation Activity Restrictions/Additional Instructions: Thank you for coming in tonight The x-ray of your belly showed that truly this is only constipation, no bowel obstruction and no bowel perforation The enema seemed to be quite effective. I would recommend that you add 1 scoop full of MiraLax to your morning routine. This helps keep your stool soft. You had some very good questions regarding nutrition, I would recommend that you talked to Dr. Adams. You may do well meeting with a stage driver. In general, more fiber from actual fresh fruits and vegetables is going to be better for everything If you find that you are getting worse or develop any new symptoms, please feel free to return to the emergency department for further evaluation. Prescriptions: No Action metformin 500 mg Tablet 2,000 mg PO QAM amlodipine 5 mg Tablet 5 mg PO DAILY levothyroxine 200 mcg Tablet 200 mcg PO DAILY Jardiance 25 mg Tablet 25 mg PO DAILY hydrochlorothiazide 50 mg tablet 50 mg PO DAILY oxycodone-acetaminophen 5-325 mg tablet 1 tab PO Q4-6H PRN (Reason: Pain (Scale Score 7-10)) zolpidem 10 mg tablet 10 mg PO ONCE PM acetaminophen 325 mg Tablet 650 mg PO Q6H Qty: 60 0RF Referrals: Jose Adams MD [Primary Care Provider] - Stand Alone Forms: Patient Portal/API/Survey
--- NOTE | 2024-12-11 18:38 | DI.RAD.S_ITS ---
PROCEDURE: XR ABDOMEN 1V INDICATIONS: abdominal pain and bloating TECHNIQUE: One view of the abdomen acquired. COMPARISON: None. FINDINGS: Surgical changes and devices: None. Bowel: Bowel gas pattern is normal. Moderate stool burden. Soft tissues: No suspicious abdominal calcifications. Visualized solid organ contours appear normal in size. Bones: No suspicious bony lesions. IMPRESSION: No acute abnormality. Dictated by: Bam Danielle M.D. on 12/11/2024 at 19:19 Approved by: Bam Danielle M.D. on 12/11/2024 at 19:20
[2024-12-11] MEDS: MINERAL OIL 1 EACH ENEMA PR (19:10)
[2024-12-11 20:05] VITALS: BP 134/87; PULSE 65; RESP 17; O2SAT 99
== END 2024-12-11 20:07 | disposition home or self-care (01) ==
PROVIDERS: Emergency Provider Emergency Medicine; Family Provider Family Medicine; PCP Family Medicine
DX: K59.00 Constipation, unspecified (principal); R10.84 Generalized abdominal pain
CPT/HCPCS: 51798; 74018; 99283; 99284

== ENCOUNTER → 2025-03-13 14:29 | Outpatient (CLI) | payer MEDICARE, BC, SELFPAY ==
[2023-10-06 16:45] VITALS: BMI 32.0
[2025-03-13 15:24] LABS: Add Manual Diff / Slide Review NO; Hematocrit 42.0 % (41-53); Hemoglobin 14.4 g/dL (13.5-17.5); Lymphocytes Absolute Auto 1900 /uL (1100-4500); Mean Corpuscular HGB Conc 34.2 % (30-36); Mean Corpuscular Hemoglobin 31.8 PG (26-34); Mean Corpuscular Volume 93.0 fL (80-100); Platelet Count 193 X10^3/uL (150-400)
[2025-03-13 15:43] LABS: Alanine Aminotransferase 44 IU/L (<50); Albumin 5.1 g/dL (3.5-5.0); Albumin Globulin Ratio 1.9 (1.0-2.8); Alkaline Phosphatase 53 U/L (38-126); Blood Urea Nitrogen 21 mg/dL (9-20); Calcium 9.8 mg/dL (8.4-10.2); Carbon Dioxide 24 mmol/L (22-32); Chloride 100 mmol/L (98-107); Cholesterol 140 mg/dL (140-199); Estimated Glomerular Filt Rate > 60 mL/min (>60); Globulin 2.7 g/dL (1.7-4.1); Glucose 115 mg/dL (70-99); HDL Cholesterol 49 mg/dL (40-60); HEMOLYSIS < 15 (0-50); Potassium 4.5 mmol/L (3.4-5.1); Sodium 135 mmol/L (137-145); Total Protein 7.8 g/dL (6.3-8.2); Triglycerides 194 mg/dL (35-150)
[2025-03-13 16:14] LABS: Thyroid Stimulating Hormone 21.5 uIU/mL (0.47-4.68)
== END ==
PROVIDERS: Family Provider Family Medicine; PCP Family Medicine; Referring Provider Family Medicine; Visit Provider Family Medicine
DX: Z13.220 Encounter for screening for lipoid disorders (principal); E03.9 Hypothyroidism, unspecified; E11.65 Type 2 diabetes mellitus with hyperglycemia; I70.0 Atherosclerosis of aorta
CPT/HCPCS: 36415; 80053; 80061; 84443; 85025

== ENCOUNTER → 2025-05-05 14:05 | Outpatient (CLI) | payer MEDICARE, BC, SELFPAY ==
[2023-10-06 16:45] VITALS: BMI 32.0
[2025-05-05 14:54] LABS: Add Manual Diff / Slide Review NO; Hematocrit 46.3 % (41-53); Hemoglobin 15.7 g/dL (13.5-17.5); Lymphocytes Absolute Auto 1500 /uL (1100-4500); Mean Corpuscular HGB Conc 33.9 % (30-36); Mean Corpuscular Hemoglobin 30.1 PG (26-34); Mean Corpuscular Volume 88.8 fL (80-100); Platelet Count 214 X10^3/uL (150-400)
[2025-05-05 15:26] LABS: Alanine Aminotransferase 21 IU/L (<50); Albumin 4.5 g/dL (3.5-5.0); Albumin Globulin Ratio 1.8 (1.0-2.8); Alkaline Phosphatase 52 U/L (38-126); Blood Urea Nitrogen 20 mg/dL (9-20); Calcium 9.7 mg/dL (8.4-10.2); Carbon Dioxide 24 mmol/L (22-32); Chloride 102 mmol/L (98-107); Cholesterol 110 mg/dL (140-199); Estimated Glomerular Filt Rate > 60 mL/min (>60); Globulin 2.5 g/dL (1.7-4.1); Glucose 122 mg/dL (70-99); HDL Cholesterol 46 mg/dL (40-60); HEMOLYSIS < 15 (0-50); Potassium 4.6 mmol/L (3.4-5.1); Sodium 138 mmol/L (137-145); Total Protein 7.0 g/dL (6.3-8.2); Triglycerides 184 mg/dL (35-150); Uric Acid 5.2 mg/dL (3.5-8.5)
[2025-05-05 15:28] LABS: Hemoglobin A1C% w Est Avg Glu 7.0 % (4.0-6.0)
[2025-05-05 15:56] LABS: Thyroid Stimulating Hormone 4.40 uIU/mL (0.47-4.68)
[2025-05-09 16:08] LABS: ANA Screen, IFA Negative (.)
== END ==
PROVIDERS: Family Provider Family Medicine; PCP Family Medicine; Referring Provider Family Medicine; Visit Provider Family Medicine
DX: E11.65 Type 2 diabetes mellitus with hyperglycemia (principal); E03.9 Hypothyroidism, unspecified; E78.2 Mixed hyperlipidemia; M13.80 Other specified arthritis, unspecified site
CPT/HCPCS: 36415; 80053; 80061; 83036; 84443; 84550; 85025; 85651; 86038; 86430

== ENCOUNTER → 2025-07-09 11:22 | Outpatient (CLI) | payer MEDICARE, BC, SELFPAY ==
[2023-10-06 16:45] VITALS: BMI 32.0
--- NOTE | 2025-07-09 11:24 | DI.US.S_ITS ---
PROCEDURE: US CAROTID DOPPLER BI INDICATIONS: SCREENING TECHNIQUE: Color and pulse Doppler interrogation was performed of both carotid systems, with image documentation and velocity measurements. COMPARISON: [facility], , US CAROTID DOPPLER BI, 11/28/2021, 9:13. FINDINGS: Stenosis calculations are based on SRU (S[employer] in Ultras[employer]) criteria. Right side: Common carotid artery peak systolic velocity: 68 cm/sec. Internal carotid artery peak systolic velocity: 85 cm/sec. Internal carotid artery end diastolic velocity: 25 cm/sec. External carotid artery peak systolic velocity: 110 cm/sec. ICA/CCA peak systolic ratio: 1.3 . Sierra scale imaging description: Irregular right ICA lumen without subjective stenosis. Mild spectral broadening of the waveform in the proximal to mid ICA which normalizes distally. Percent internal carotid artery stenosis: Less than 50% . Vertebral artery: Flow direction is antegrade. Left side: Common carotid artery peak systolic velocity: 74 cm/sec. Internal carotid artery peak systolic velocity: 86 cm/sec. Internal carotid artery end diastolic velocity: 25 cm/sec. External carotid artery peak systolic velocity: 85 cm/sec. ICA/CCA peak systolic ratio: 1.2 . Sierra scale imaging description: Minimal spectral broadening of the ICA waveform. No subjective luminal stenosis. Mild noncalcified plaque. Percent internal carotid artery stenosis: Less than 50% . Vertebral artery: Flow direction is antegrade. IMPRESSION: 1. In the right carotid artery, there is no hemodynamically significant stenosis based on peak systolic velocity criteria. 2. In the left carotid artery, there is no hemodynamically significant stenosis based on peak systolic velocity criteria. 3. Antegrade vertebral arteries. Dictated by: Katy Sandy M.D. on 07/10/2025 at 11:06 Approved by: Katy Sandy M.D. on 07/10/2025 at 11:09
== END ==
PROVIDERS: Family Provider Family Medicine; PCP Family Medicine; Referring Provider Family Medicine; Visit Provider Family Medicine
DX: Z13.858 Encounter for screening for other nervous system disorders (principal); R55 Syncope and collapse
CPT/HCPCS: 93880

== ENCOUNTER → 2025-07-09 11:57 | Outpatient (CLI) | payer MEDICARE, BC, SELFPAY ==
[2023-10-06 16:45] VITALS: BMI 32.0
--- NOTE | 2025-07-09 11:57 | DI.CT.S_ITS ---
PROCEDURE: CT HEAD/BRAIN WO CON INDICATIONS: dizzy TECHNIQUE: Noncontrast 4.5 mm thick angled axial sections acquired from the foramen magnum to the vertex, with coronal and sagittal reformats. For radiation dose reduction, the following was used: automated exposure control, adjustment of mA and/or kV according to patient size. COMPARISON: [facility], CT, CT HEAD/BRAIN WO CON, 10/06/2023, 13:51. FINDINGS: Image quality: Diagnostic. CSF spaces: Basal cisterns are patent. No extra-axial fluid collections. The ventricles are symmetric in size and shape. Brain: No intracranial bleeds or mass effect. There is cerebral volume loss, with resultant ventricular and sulcal prominence. There are periventricular and deep white matter chronic small vessel ischemic changes. There is intracranial internal carotid artery atherosclerosis. Skull and face: Calvarium and visualized facial bones appear intact, without suspicious lesions. Sinuses: Visualized sinuses and mastoids are clear. IMPRESSION: Cerebral and cerebellar volume loss with microangiopathic ischemic changes. No acute intracranial pathology. Dictated by: Alexandra Hitchcock M.D. on 07/09/2025 at 21:51 Approved by: Alexandra Hitchcock M.D. on 07/09/2025 at 21:53
== END ==
PROVIDERS: Family Provider Family Medicine; PCP Family Medicine; Referring Provider Family Medicine; Visit Provider Family Medicine
DX: Z13.858 Encounter for screening for other nervous system disorders (principal); R55 Syncope and collapse; I65.23 Occlusion and stenosis of bilateral carotid arteries
CPT/HCPCS: 70450; 93880